=== PATIENT | male | born 2000 | race Caucasian/White ===

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

== ENCOUNTER 2021-06-04 19:11 | Emergency (ER) | payer OTHER, SELFPAY ==
[2021-06-04 19:57] LABS: Basophils % 0.8 % (0-1.3); Lymphocytes % 31.3 % (15.3-44.8); MPV 8.3 fL (7.6-11.3); RBC Red Blood Cell Count 4.83 M/uL (4.33-5.43)
[2021-06-04 20:08] LABS: ALT/SGPT 25 U/L (12-78); AST/SGOT 13 U/L (15-37); Albumin 4.2 g/dL (3.4-5.0); Alkaline Phosphatase 59 U/L (45-117); BUN Blood Urea Nitrogen 24 mg/dL (7-18); Bicarbonate 29 mmol/L (21-32); Bilirubin Direct 0.1 mg/dL (0-0.2); Bilirubin Total 0.4 mg/dL (0.2-1.0); Glucose Level 111 mg/dL (74-106); Potassium 3.9 mmol/L (3.5-5.1); Sodium Level 143 mmol/L (136-145)
[2021-06-04] MEDS ORDERED: NA CHLORIDE 0.9% 1,000 ML ONE (21:09)
[2021-06-04] MEDS ORDERED: LORazepam 2 MG/ML VIAL ONE (21:09)
--- NOTE | 2021-06-05 02:21 | EDPHYS ---
Physician Documentation [facility] Name: Nghia Estrada Age: 20 yrs Sex: Male : 2000 Arrival Date: 06/04/2021 Time: 19:20 Bed 23 Private MD: ED Physician Dane Montanez HPI: 06/04 22:40 This 20 yrs old Male presents to ER via EMS with complaints of Anxiety and rn paranoia. 22:40 The patient presents with agitation, Paranoia. Onset: The symptoms/episode rn began/occurred at an unknown time. Possible causes: drug use, amphetamines. Associated signs and symptoms: Pertinent positives: palpitations, Pertinent negatives: abdominal pain, chest pain, confusion, headache, seizure. Current symptoms: In the emergency department the patient's symptoms have improved. The patient has experienced similar episodes in the past. The patient has not recently seen a physician. Patient brought in by EMS for anxiety and palpitations with paranoia. States neighbors took meth and he feels like he inhales byproduct fumes. Patient states that he feels like his neighbors are trying to poison him. Admits to swallowing crystal meth approximately 20 minutes prior to arrival. 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 Family has family history of psychiatric issues, but patient without any clear diagnosis and does not take any psychiatric medication. Patient denies any suicidal or homicidal thoughts or plans.. Historical: - Allergies: 19:10 No Known Allergies; cc4 - PMHx: 19:10 Bipolar disorder; cc4 - Immunization history:: Adult Immunizations up to date. - Social history:: Smoking status: Patient reports the use of cigarette tobacco products, Patient uses "Crystal meth"; denies IV use; states, "I smoke and swallow it"; reports intermittent use of marijuana; reports h/o bi-polar disorder.. - Family history:: not pertinent. - Hospitalizations: : No recent hospitalization is reported. ROS: 22:40 Constitutional: Negative for fever, chills, and weight loss, Eyes: Negative for injury, rn pain, redness, and discharge, Neck: Negative for injury, pain, and swelling, Cardiovascular: Negative for chest pain, and edema, Respiratory: Negative for cough, wheezing, and pleuritic chest pain, Abdomen/GI: Negative for abdominal pain, nausea, vomiting, diarrhea, and constipation, Back: Negative for injury and pain, MS/Extremity: Negative for injury and deformity, Skin: Negative for injury, rash, and discoloration, Neuro: Negative for headache, weakness, numbness, tingling, and seizure. Exam: 22:40 Constitutional: This is a well developed, well nourished patient who is awake, alert, rn and in no acute distress. Head/Face: Normocephalic, atraumatic. Eyes: Pupils equal round and reactive to light, extra-ocular motions intact. Lids and lashes normal. Conjunctiva and sclera are non-icteric and not injected. Cornea within normal limits. Periorbital areas with no swelling, redness, or edema. No nystagmus ENT: Dry mucous membranes Cardiovascular: Regular rate and rhythm. No pulse deficits. Respiratory: No increased work of breathing, no retractions or nasal flaring. Abdomen/GI: Soft, non-tender Skin: Warm, dry MS/ Extremity: Pulses equal, no cyanosis. Neuro: Awake and alert, GCS 15 Vital Signs: 19:10 BP 159 / 81; Pulse 112; Resp 17; Temp 98.0; Pulse Ox 98% on R/A; Weight 77.11 kg; cc4 Height 5 ft. 7 in. (170.18 cm); 19:10 BP 159 / 81; Pulse 112; Resp 17; Temp 98.0; Pulse Ox 98% ; cc4 20:00 BP 135 / 86; Pulse 109; Resp 20; Pulse Ox 100% on R/A; cc4 21:00 BP 133 / 74; Pulse 93; Resp 16; Pulse Ox 100% on R/A; cc4 22:00 BP 130 / 70; Pulse 94; Resp 16; Pulse Ox 98% on R/A; cc4 23:00 BP 127 / 70; Pulse 68; Resp 16; Pulse Ox 100% on R/A; cc4 06/05 00:00 BP 125 / 63; Pulse 70; Resp 16; Temp 97.7(O); Pulse Ox 100% on R/A; cc4 01:00 BP 130 / 78; Pulse 67; Resp 16; Pulse Ox 100% on R/A; cc4 02:00 BP 122 / 61; Pulse 60; Resp 16; Pulse Ox 100% on R/A; cc4 02:45 BP 131 / 67; Pulse 61; Resp 16; Temp 97.8; Pulse Ox 100% on R/A; cc4 06/04 19:10 Body Mass Index 26.63 (77.11 kg, 170.18 cm) cc4 MDM: 06/04 19:45 Patient medically screened. rn 06/05 01:22 Differential Diagnosis: electrolyte abnormality, overdose, volume depletion, rn Methamphetamine effects.. Data reviewed: vital signs, nurses notes, lab test result(s), EKG, and as a result, I will discharge patient. Data interpreted: monitoring tech: rate is 70 beats/min, rhythm is normal sinus rhythm, regular, with no ectopy, Interpretation: normal rate, normal rhythm, Pulse oximetry: on room air is 100 %. Interpretation: normal. 01:42 Counseling: I had a detailed discussion with the patient and/or guardian regarding: the rn historical points, exam findings, and any diagnostic results supporting the discharge/admit diagnosis, lab results. Response to treatment: the patient's symptoms have markedly improved after treatment. ED course: We are in the middle of transferring patient to psychiatric facility or attempting to do so, 1 facility requested patient be changed to involuntary and get a assisted order if we want to transfer. Patient is awake and declines transfer, does not want to be transferred to psychiatric facility. Still denies suicidal or homicidal ideations or self-harm so cannot at this time justify emergency assisted order. Patient also constantly under the influence of methamphetamines and difficult to tell how much of his paranoia is drug-induced. At this discussion with his father and patient needs to quit drug use. Have no choice but to send patient home given he is not at this time endorsing thoughts of self-harm or harming anybody else.. 06/04 19:30 Order name: Acetaminophen em 06/04 19:30 Order name: Basic Metabolic Panel em 06/04 19:30 Order name: CBC with Diff em 06/04 19:30 Order name: ETOH Level em 06/04 19:30 Order name: Hepatic Function em 06/04 19:30 Order name: PT-INR em 06/04 19:30 Order name: Ptt, Activated; Complete Time: 22:39 em 06/04 19:30 Order name: Salicylate; Complete Time: 22:39 em 06/04 19:30 Order name: Urine Drug Screen em 06/04 19:30 Order name: Acetaminophen Level; Complete Time: 22:39 EDMS 06/04 19:30 Order name: Basic Metabolic Panel; Complete Time: 22:39 EDMS 06/04 19:30 Order name: CBC with Automated Diff; Complete Time: 22:39 EDMS 06/04 19:30 Order name: Alcohol Serum/Plasma; Complete Time: 22:39 EDMS 06/04 19:30 Order name: Liver (Hepatic) Function; Complete Time: 22:39 EDMS 06/04 19:30 Order name: EKG; Complete Time: 19:31 em 06/04 19:30 Order name: EKG - Nurse/Tech; Complete Time: 19:35 em 06/04 19:30 Order name: IV Saline Lock; Complete Time: 19:35 06/04 19:30 Order name: Labs collected and sent; Complete Time: 19:35 06/04 19:30 Order name: Suicide Screening ([place]); Complete Time: 20:53 06/04 19:30 Order name: Urine Dipstick-Ancillary (obtain specimen) 06/04 19:30 Order name: Protime (+INR); Complete Time: 22:39 EDSD 06/05 02:21 Order name: SARS-COV-2 RT PCR EDSD 06/05 02:26 Order name: Urine Dipstick-Ancillary EDMS Administered Medications: 02:57 Discontinued: NS 0.9% 1000 ml IV at 1000 ml once cc4 06/04 20:45 Drug: Ativan (LORazepam) 1 mg Route: IVP; Site: right antecubital; 4 06/05 02:45 Follow up: Response: No adverse reaction; Anxiety decreased cc4 06/04 20:45 Drug: NS 0.9% 1000 ml Route: IV; Rate: 1000 ml; Site: right antecubital; 4 06/05 02:45 Follow up: IV Intake: 1000ml cc4 Disposition Summary: 06/05/21 01:45 Discharge Ordered Location: Home rn Problem: an ongoing problem rn Symptoms: have improved rn Condition: Stable rn Diagnosis - Adverse effect of amphetamines rn - Paranoia rn Followup: rn - With: Private Physician - When: As needed - Reason: Recheck today's complaints, Re-evaluation by your physician Discharge Instructions: - Methamphetamines Use Disorder rn - Discharge Summary Sheet tt3 Forms: - Medication Reconciliation Form tt3 - Thank You Letter rn - Antibiotic metal furniture assembler - Prescription Opioid Use rn Signatures: Dispatcher [employer] Shakir Szymanski, RN Dane Woods MD MD rn Cooper, Christie, RN RN cc4 Corrections: (The following items were deleted from the chart) 06/04 21:20 19:10 PMHx: Diabetes - NIDDM; cc4 cc4 06/05 02:21 00:35 CORONAVIRUS+MR.LAB.BRZ ordered. EDSD EDSD
--- NOTE | 2021-06-05 02:21 | ER ---
Nurse's Notes [facility] Name: Nghia Estrada Age: 20 yrs Sex: Male : 2000 Arrival Date: 06/04/2021 Time: 19:20 Bed 23 Private MD: Diagnosis: Adverse effect of amphetamines;Paranoia Presentation: 06/04 19:10 Chief complaint: EMS states: "He thinks he was poisoned". Initial Sepsis Screen: Does cc4 the patient meet any 2 criteria? HR > 90 bpm. No. Patient's initial sepsis screen is negative. Risk Assessment: Do you want to hurt yourself or someone else? Patient reports no desire to harm self or others. Other: States, "They are going to kill me"; "The people I buy my meth. 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 Note Diaphoretic; Tachycardic; CM applied \\T\\ monitoring sinus tachycardia with no ventricular ectopy; reports h/o bi-polar disorder; reports on no home medications. Onset of symptoms was June 04, 2021 at 18:45. 19:10 Method Of Arrival: EMS: [facility] cc4 19:10 Acuity: RUBIO 3 cc4 19:10 Coronavirus screen: Vaccine status: Patient reports being unvaccinated. Client denies cc4 travel out of the [place] in the last 14 days. At this time, the client does not indicate any symptoms associated with coronavirus-19. Ebola Screen: Patient negative for fever greater than or equal to 101.5 degrees Fahrenheit, and additional compatible Ebola Virus Disease symptoms Patient denies exposure to infectious person. Patient denies travel to an Ebola-affected area in the 21 days before illness onset. Initial Sepsis Screen: Does the patient have a suspected source of infection? No. Patient's initial sepsis screen is negative. 19:20 Note Denies wanting to harm self or others; [place] Suicide Rating Scale completed. 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 Behavior is agitated. Pain: Denies pain. Historical: - Allergies: 19:10 No Known Allergies; cc4 - PMHx: 19:10 Bipolar disorder; cc4 - Immunization history:: Adult Immunizations up to date. - Social history:: Smoking status: Patient reports the use of cigarette tobacco products, Patient uses "Crystal meth"; denies IV use; states, "I smoke and swallow it"; reports intermittent use of marijuana; reports h/o bi-polar disorder.. - Family history:: not pertinent. - Hospitalizations: : No recent hospitalization is reported. Screenin:10 Abuse screen: Denies threats or abuse. Nutritional screening: No deficits noted. cc4 Tuberculosis screening: No symptoms or risk factors identified. Fall Risk None identified. Assessment: 19:10 General: Appears distressed, Behavior is agitated. Pain: Denies pain. Neuro: Level of cc4 Consciousness is awake, alert, obeys commands, Oriented to person, place, situation. Cardiovascular: Capillary refill < 3 seconds Rhythm is sinus tachycardia no ectopy noted. 19:10 Respiratory: No deficits noted. Airway is patent Breath sounds are clear bilaterally. cc4 GI: No deficits noted. Abdomen is flat, non-distended, Bowel sounds present X 4 quads. : No signs and/or symptoms were reported regarding the genitourinary system. EENT: No signs and/or symptoms were reported regarding the EENT system. Derm: Skin is intact. Musculoskeletal: No deficits noted. No signs and/or symptoms reported regarding the musculoskeletal system. Capillary refill < 3 seconds. 20:15 Reassessment: No changes from previously documented assessment. father in \\T\\ bedside cc4 with increased agitation noted. 20:45 Reassessment: IV NS hung to #20 g saline lock right AC \\T\\ infusing \\T\\ bolus rate with no cc 4 difficulty; ativan 1 mg given slow IVP; SR's X 2 up. 21:00 Reassessment: Patient appears in no apparent distress at this time. Dozing cc4 intermittently; HR decreasing to 93. 22:00 Reassessment: Patient appears in no apparent distress at this time. Sleeping; VSS; IV cc4 NS infusion complete. 23:00 Reassessment: Patient appears in no apparent distress at this time. Sleeping; arouses cc4 to verbal stimuli; instructed on need to urinate with urinal placed in hands; not following commands; Dr. Montanez notified \\T\\ reports"That's okay". 06/05 00:00 Reassessment: Patient appears in no apparent distress at this time. Continues to sleep; cc4 arouses easily; not following commands; NSR with no ectopy; HR 60's-70's; BP stable; O2 sat 100% RA. Vital Signs: 06/04 19:10 BP 159 / 81; Pulse 112; Resp 17; Temp 98.0; Pulse Ox 98% on R/A; Weight 77.11 kg; cc4 Height 5 ft. 7 in. (170.18 cm); 19:10 BP 159 / 81; Pulse 112; Resp 17; Temp 98.0; Pulse Ox 98% ; cc4 20:00 BP 135 / 86; Pulse 109; Resp 20; Pulse Ox 100% on R/A; cc4 21:00 BP 133 / 74; Pulse 93; Resp 16; Pulse Ox 100% on R/A; cc4 22:00 BP 130 / 70; Pulse 94; Resp 16; Pulse Ox 98% on R/A; cc4 23:00 BP 127 / 70; Pulse 68; Resp 16; Pulse Ox 100% on R/A; cc4 06/05 00:00 BP 125 / 63; Pulse 70; Resp 16; Temp 97.7(O); Pulse Ox 100% on R/A; cc4 01:00 BP 130 / 78; Pulse 67; Resp 16; Pulse Ox 100% on R/A; cc4 02:00 BP 122 / 61; Pulse 60; Resp 16; Pulse Ox 100% on R/A; cc4 02:45 BP 131 / 67; Pulse 61; Resp 16; Temp 97.8; Pulse Ox 100% on R/A; cc4 06/04 19:10 Body Mass Index 26.63 (77.11 kg, 170.18 cm) cc4 ED Course: 06/04 19:10 No provider procedures requiring assistance completed. Inserted saline lock: 20 gauge cc4 in right antecubital area, using aseptic technique. 19:10 Bed in low position. Call light in reach. Side rails up X2. cc4 19:20 Patient arrived in ED. wm 19:31 Ngozi Barahona, APOLINAR is Primary Nurse. cc4 19:35 Alcohol Serum/Plasma Sent. cc4 19:35 Liver (Hepatic) Function Sent. cc4 19:35 Protime (+INR) Sent. cc4 19:35 Basic Metabolic Panel Sent. cc4 19:35 CBC with Automated Diff Sent. cc4 19:35 Acetaminophen Level Sent. cc4 19:35 Acetaminophen Sent. cc4 19:35 Basic Metabolic Panel Sent. cc4 19:35 CBC with Diff Sent. cc4 19:35 ETOH Level Sent. cc4 19:35 Hepatic Function Sent. cc4 19:35 PT-INR Sent. cc4 19:36 Ptt, Activated Sent. cc4 19:36 Salicylate Sent. cc4 19:45 Dane Montanez MD is Attending Physician. rn 19:52 Triage completed. cc4 21:16 Arm band placed on. cc4 06/05 02:45 IV discontinued, intact, bleeding controlled, No redness/swelling at site. Pressure cc4 dressing applied. Administered Medications: 02:57 Discontinued: NS 0.9% 1000 ml IV at 1000 ml once cc4 06/04 20:45 Drug: Ativan (LORazepam) 1 mg Route: IVP; Site: right antecubital; cc4 06/05 02:45 Follow up: Response: No adverse reaction; Anxiety decreased cc4 06/04 20:45 Drug: NS 0.9% 1000 ml Route: IV; Rate: 1000 ml; Site: right antecubital; cc4 06/05 02:45 Follow up: IV Intake: 1000ml cc4 Intake: 02:45 IV: 1000ml; Total: 1000ml. cc4 Outcome: 06/04 19:10 Condition: stable cc4 06/05 01:45 Discharge ordered by . rn 02:45 Discharged to home via wheelchair. cc4 02:45 Condition: improved 02:45 Discharge instructions given to patient, father Instructed on discharge instructions, follow up and referral plans. Demonstrated understanding of instructions, follow-up care. 03:14 Patient left the ED. cc4 Signatures: Dane Montanez MD MD rn Marsh, Wendy wm Cooper, Christie, RN RN cc4 Corrections: (The following items were deleted from the chart) 06/04 21:20 19:10 PMHx: Diabetes - NIDDM; cc4 cc4 06/05 00:06 00:00 BP 127 / 70; Pulse 70bpm; Resp 16bpm; Pulse Ox 100% RA; cc4 cc4 02:21 01:51 CORONAVIRUS+MR.LAB.BRZ drawn and sent. cc4 EDMS
[2021-06-05 02:27] LABS: Urine Blood Negative (Negative); Urine Glucose Negative (Negative); Urine Protein Negative (Negative); Urine Specific Gravity >=1.030 (1.005-1.030); Urine pH 5.5 (5.0-7.0)
[2021-06-05 02:32] LABS: Barbiturates NEGATIVE (NEGATIVE); Benzodiazepines NEGATIVE (NEGATIVE); Cocaine NEGATIVE (NEGATIVE); METHAMPHETAM POSITIVE (NEGATIVE); Methadone NEGATIVE (NEGATIVE); Opiates NEGATIVE (NEGATIVE); Phencyclidine NEGATIVE (NEGATIVE); THC Cannibis POSITIVE (NEGATIVE)
[2021-06-05 03:23] VITALS: O2SAT 100
[2021-06-05 03:29] VITALS: BP 131/67; TEMP 97.8
== END 2021-06-05 03:14 | disposition home or self-care (01) ==
LOC: ER 19:11
DX: F22 Delusional disorders (principal); T43.625A Adverse effect of amphetamines, initial encounter; F31.9 Bipolar disorder, unspecified; Z20.822 Contact with and (suspected) exposure to COVID-19
CPT/HCPCS: 93005; 85025; 80048; 36415; 80320; 80329 ×2; 85610; 80076; 85730; 81003; 80307; 96374; 99284; U0003; J7030

== ENCOUNTER 2022-04-29 23:46 | Emergency (ER) | payer OTHER ==
--- OUTSIDE RECORDS SUMMARY | 2022-04-29 23:49 | XMS REPORT | Continuity of Care Document ---
:2000 Author Organization [facility] [place] t Address [address] [place] [address] Care Team Providers Name Role Phone Peña Calabrese MD Attending Clinician PEÑA CALABRESE Attending Clinician Unavailable Problems Condition Condition Condition Status Onset Resolution Last Treating Co mments Source Name Details Category Date Date Treatment Clinician Date Superficia Superficia Disease Active U nivers l mixed l mixed 1-11 [place] inflammato inflammato Br anch ry acne ry acne vulgaris vulgaris AYLEEN AYLEEN Disease Active Univers (obstructi (obstructi 09-02 it y of ve sleep ve sleep 00:00: [place] apnea) apnea) 00 Medical Branch History of History of Disease Active U nivers depression depression 1-11 it y of 00:00: [place] 00 Medical Branch 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 1-05 ity of diabetes diabetes 00:00: [place] 00 Medical Branch Obesity, Obesity, Disease Active 2014-08 Unive rs morbid, morbid, 2-01 ity of BMI BMI 00:00: [place] 40.0-49.9 40.0-49.9 00 [facility] Branch Abnormal Abnormal Disease Active 2014-08 Unive rs weight weight 2-01 ity of gain gain 00:00: [place] 00 Medical Branch Type 2 Type 2 Disease Active 2014-08 Univers diabetes diabetes 2-01 ity of mellitus mellitus 00:00: [place] without without 00 Medical complicati complicati Br anch on on Acanthosis Acanthosis Disease Active 2014-08 U nivers nigricans nigricans 2- ity of 00:00: [place] 00 Medical Branch Elevated Elevated Disease Active 2014-08 Unive rs systolic systolic 2-01 ity of blood blood 00:00: [place] pressure pressure 00 Medica l Branch Allergies, Adverse Reactions, Alerts Allergy Allergy Status Severity Reaction(s) Onset Inactive Treating Comm ents Source Name Type Date Date Clinician No Known Drug Active [facility] NO KNOWN Drug Active [facility] ALLERG Class ity of S [facility] Social History Social Habit Start Date Stop Date Quantity Comments Source Sex Assigned At [facility] Medical Branch Alcohol intake 2017-07-28 2017-07-28 [facility] 00:00:00 00:00:00 Medical Branch Smoking Status Start Date Stop Date Source Never smoker [facility] Medications Ordered Filled Start Stop Current Ordering Indication Dosage Frequency Signature Comments Components Source Medication Medication Date Date Medication? Clinician (SIG) Name Name Lamotrigine 2016-08 Yes 50mg Take 50 mg Univers (LAMICTAL 2-07 by mouth ity of ODT) 50 mg 13:15: daily. [place] tablet 05 Medical Branch blood sugar Yes Checking 6 Univers diagnostic 6-05 times ity of (FREESTYLE 00:00: daily [place] LITE 00 Medical STRIPS) Branch strip metformin Yes [id number] 750mg Take 1 Univers ER 750 mg 6-05 tablet by ity o f 24 hr 00:00: mouth [place] tablet 00 daily. Medical With Branch dinner Insulin Yes [id number] Taking 1 U nivers [place], 9-06 injection ity of Disposable, 00:00: daily [place] (SURE-FINE Medical PEN Branch NEEDLES) 31 gauge x 5/16" Ndle loratadine- 2014-08 Yes [id number] 1{tbl} Take 1 Tab Univers pseudoephed 2-01 by mouth ity of rine 00:00: daily. [place] (CLARITIN-D 00 Medical 24 HOUR) Branch 10-240 mg per 24 hr tablet Vital Signs Vital Name Observation Time Observation Value Comments Source Weight Dosing 2021-09-09 09:51:09 72.60 kg Height/Length Measured 2021-09-09 09:51:09 172.7 cm Height/Length Measured 2021-09-09 09:42:27 172.7 cm Weight Dosing 2021-09-09 09:42:27 72.60 kg Height/Length Measured 2021-09-09 09:39:01 172.7 cm Height/Length Measured 2021-09-09 09:38:02 172.7 cm Height/Length Measured 2021-09-09 09:37:56 172.7 cm Height/Length Measured 2021-09-09 09:37:53 172.7 cm Height/Length Measured 2021-09-09 09:37:51 172.7 cm Height/Length Measured 2021-09-09 09:37:49 172.7 cm Height/Length Measured 2021-09-09 09:37:48 172.7 cm Height/Length Measured 2019-11-08 22:41:31 Procedures This patient has no known procedures. Encounters Start End Encounter Admission Attending Care Care Encounter Source Date/Time Date/Time Type Type Clinicians Facility Department ID 2019-11-09 2019[facility]11-09 [facility] [id number] Univers 13:19:00 23:59:00 Encounter Peña ABRAHAM [id number] ity MEDICAL [id number] Formerly [facility] [id number] [place] [id number] Branch 2019-11-09 2019-11-09 Outpatient [facility] [id number] Univers 00:00:00 00:00:00 PEÑA squires o f [facility] 2019-11-08 2019-11-08 Emergency [facility] [id number] [address] 22:22:00 22:22:00 [facility] 2019-11-08 2019-11-08 Emergency [facility] [id number] 22:22:00 22:22:00 [id number] [facility] Results Test Description Test Time Test Comments Results Result Comments Source Hemoglobin A1c 2019-11-14 06:51:27 Test Item Value Reference Range Interpretation Comme nts Hemoglobin A1c (test code = 5.0 % 4.8-5.9 Non Diabetic 4.8-5.9%Diabetic <7.0% Hemoglobin A1c) Thyroid Stimulating [id number] 04:42:51 Test Item Value Reference Range Interpretation Comments TSH (test code = TSH) 1.030 mIU/mL 0.270-4.200 Lipid [id number] 04:37:04 Test Item Value Reference Range Interpretation Comments Cholesterol Total 126 mg/dL 0-200 RISK OF HE ART (test code = DISEASEPublishe d by Cholesterol Total) [employer] Toña lyte Optimal Borderl ine Increased RiskC HOL <200 200-239 >240TRI G <150 150-199 >200HDL Male >60 <40HDL Fema le >60 <50LDL <100 130 -159 >160LDL Near op timal is 100-129 Triglycerides (test 47 mg/dL 9-200 code = Triglycerides) HDL (test code = HDL) 43 mg/dL 40-60 LDL (test code = LDL) 74 mg/dL 0-130 The eq uation being used in this calcula tion is LDL = (Chol - H DL) - (Trig / 5) VLDL (test code = 9 mg/dL 5-40 The equati on being used VLDL) in this calcula tion is VLDL = Trig / 5 Chol/HDL (test code = 2.9 ratio 0.0-5.0 Chol/HDL) LDL/HDL Ratio (test 2 N The equa tion being used code = LDL/HDL Ratio) in thi s calculation is LDL/HDL Ratio=L DL Calc/HDL Chol RPR [id number] 14:25:53 Test Item Value Reference Range Interpretation Comments RPR Qual (test code = RPR Qual) Non-Reactive Non-Reactive Reactive Control (test code = Reactive Reactive Control) Weak Reactive Control (test Weak Reactive code = Weak Reactive Control) Non-Reactive Control (test code Non-Reactive = Non-Reactive Control) Lot # (test code = Lot #) [id number] Expiration Dt (test code = 08-22-20 N Expiration Dt) Urinalysis [id number] 06:13:44 Test Item Value Reference Range Interpretation Comments UA WBC (test code = UA WBC) 6-10 0-5 A UA RBC (test code = UA RBC) 0-5 0-5 UA Bacteria (test code = UA Moderate A Bacteria) UA Squam Epithelial (test code = UA 6-10 A Squam Epithelial) UA Mucous (test code = UA Mucous) Moderate A Urine Drug [id number] 05:55:29 Test Item Value Reference Range Interpretation Comments Amphetamine Screen Ur Negative Negative (test code = Amphetamine Screen Ur) Barbiturate Screen Ur Negative Negative (test code = Barbiturate Screen Ur) Benzodiazepines Ur (test Negative Negative code = Benzodiazepines Ur) Cocaine Screen Ur (test Negative Negative code = Cocaine Screen Ur) U Methadone Scr (test Negative Negative code = U Methadone Scr) Opiate Screen Ur (test Negative Negative code = Opiate Screen Ur) U PCP Scrn (test code = Negative Negative U PCP Scrn) Cannabinoid Screen Ur POSITIVE Negative A (test code = Cannabinoid Screen Ur) U TCA (test code = U Negative Negative The res ults of all TCA) drug screen anya ts are only preliminar y. Clinical consideration a nd professional ju dgment should be appli ed to any drug of abu se test result, particularly wh en preliminary pos itive results are obt ained. Please order a separate confir matory test if desired . Urinalysis with Microscopic if [id number] 05:44:35 Test Item Value Reference Range Interpretation Comments UA Color (test code = UA Color) YELLO Yellow UA Appear (test code = UA Appear) CLEAR Clear UA pH (test code = UA pH) 5.5 N UA Spec Grav (test code = UA Spec 1.030 1.001-1.035 Grav) UA Glucose (test code = UA Glucose) NEG Negative UA Ketones (test code = UA Ketones) NEG Negative UA Blood (test code = UA Blood) NEG Negative UA Protein (test code = UA Protein) 25 mg/dL Negative A UA Bili (test code = UA Bili) 1 mg/dL Negative A UA Urobilinogen (test code = UA .2 mg/dL >0.2 Urobilinogen) UA Nitrite (test code = UA Nitrite) NEG Negative UA Leuk Est (test code = UA Leuk NEG Negative Est) UA Micro Ind? (test code = UA Micro Indicated Not Indicated A Ind?) Comprehensive Metabolic [id number] 01:23:11 Test Item Value Reference Range Interpretation Comments Sodium Level (test code = Sodium 142.0 mmol/L 135.0-145.0 Level) Potassium Level (test code = 3.5 mmol/L 3.5-5.1 Potassium Level) Chloride Level (test code = 104 mmol/L 98-105 Chloride Level) CO2 (test code = CO2) 23 mmol/L 22-29 Anion Gap (test code = Anion 15 mmol/L 7-16 Gap) BUN (test code = BUN) 15.90 mg/dL 6.00-20.00 Creatinine Level (test code = 1.00 mg/dL 0.70-1.20 Creatinine Level) BUN/Creat Ratio (test code = 16 N BUN/Creat Ratio) Glucose Level (test code = 78 mg/dL 70-115 Glucose Level) Calcium Level (test code = 9.0 mg/dL 8.3-10.5 Calcium Level) Alk Phos (test code = Alk Phos) 43 U/L 40-129 Bilirubin Total (test code = 0.5 mg/dL 0.1-0.9 Bilirubin Total) Albumin Level (test code = 4.3 g/dL 3.5-5.2 Albumin Level) Protein Total (test code = 6.0 g/dL 6.4-8.3 L Protein Total) ALT (test code = ALT) 10 U/L 1-41 AST (test code = AST) 14 U/L 1-40 Globulin (test code = Globulin) 1.7 g/dL 2.9-3.1 L A/G Ratio (test code = A/G 2.5 ratio N Ratio) Comprehensive Metabolic [id number] 01:23:11 Test Item Value Reference Range Interpretation Comments Sodium Level (test 142.0 mmol/L 135.0-145.0 code = Sodium Level) Potassium Level 3.5 mmol/L 3.5-5.1 (test code = Potassium Level) Chloride Level (test 104 mmol/L 98-105 code = Chloride Level) CO2 (test code = 23 mmol/L 22-29 CO2) Anion Gap (test code 15 mmol/L 7-16 = Anion Gap) BUN (test code = 15.90 mg/dL 6.00-20.00 BUN) Creatinine Level 1.00 mg/dL 0.70-1.20 (test code = Creatinine Level) BUN/Creat Ratio 16 N (test code = BUN/Creat Ratio) Glucose Level (test 78 mg/dL 70-115 code = Glucose Level) Calcium Level (test 9.0 mg/dL 8.3-10.5 code = Calcium Level) Alk Phos (test code 43 U/L 40-129 = Alk Phos) Bilirubin Total 0.5 mg/dL 0.1-0.9 (test code = Bilirubin Total) Albumin Level (test 4.3 g/dL 3.5-5.2 code = Albumin Level) Protein Total (test 6.0 g/dL 6.4-8.3 L code = Protein Total) ALT (test code = 10 U/L 1-41 ALT) AST (test code = 14 U/L 1-40 AST) Globulin (test code 1.7 g/dL 2.9-3.1 L = Globulin) A/G Ratio (test code 2.5 ratio N = A/G Ratio) eGFR AA (test code = >60 N eGFR (e stimated eGFR AA) mL/min/1.73 m2 Glomerular Filtration Rate ) is an estimated va lue, calculated from the patient's serum creatinine usin g the MDRD equation. It is NOT the patient 's actual GFR. The eGFR provides a more clinically usef ul measure of kidn ey disease than se rum creatinine alone.This calculation pavan es sex and race in to account, if the information is provided. If th e race is not provided, and t he patient is -Paula n, multiply by 1.2 12. If sex is not provided, and t he patient is fema le, multiply by 0.7 42. Results for pat ients <18 years of ag e have not been validated by th e MDRD study and should be interpreted wit h caution. eGFR R esult Interpretation: eGFR > or = 60 is in the Normal RangeeGF R < 60 may mean kid sola diseaseeGFR < 1 5 may mean kidney failure Rang es recommended by the National Kidney Foundation, http://nkdep.ni h.gov Alcohol [id number] 01:23:11 Test Item Value Reference Range Interpretation Comments Ethanol Level (test <0.00 g/dL 0.00-0.01 Intoxica jessica 0.080 g/dL code = Ethanol or more Level) Ethanol Inst (test <0 N code = Ethanol Inst) Comprehensive Metabolic [id number] 01:23:11 Test Item Value Reference Range Interpretation Comments Sodium Level (test 142.0 mmol/L 135.0-145.0 code = Sodium Level) Potassium Level 3.5 mmol/L 3.5-5.1 (test code = Potassium Level) Chloride Level (test 104 mmol/L 98-105 code = Chloride Level) CO2 (test code = 23 mmol/L 22-29 CO2) Anion Gap (test code 15 mmol/L 7-16 = Anion Gap) BUN (test code = 15.90 mg/dL 6.00-20.00 BUN) Creatinine Level 1.00 mg/dL 0.70-1.20 (test code = Creatinine Level) BUN/Creat Ratio 16 N (test code = BUN/Creat Ratio) Glucose Level (test 78 mg/dL 70-115 code = Glucose Level) Calcium Level (test 9.0 mg/dL 8.3-10.5 code = Calcium Level) Alk Phos (test code 43 U/L 40-129 = Alk Phos) Bilirubin Total 0.5 mg/dL 0.1-0.9 (test code = Bilirubin Total) Albumin Level (test 4.3 g/dL 3.5-5.2 code = Albumin Level) Protein Total (test 6.0 g/dL 6.4-8.3 L code = Protein Total) ALT (test code = 10 U/L 1-41 ALT) AST (test code = 14 U/L 1-40 AST) Globulin (test code 1.7 g/dL 2.9-3.1 L = Globulin) A/G Ratio (test code 2.5 ratio N = A/G Ratio) eGFR AA (test code = >60 N eGFR (e stimated eGFR AA) mL/min/1.73 m2 Glomerular Filtration Rate ) is an estimated va lue, calculated from the patient's serum creatinine usin g the MDRD equation. It is NOT the patient 's actual GFR. The eGFR provides a more clinically usef ul measure of kidn ey disease than se rum creatinine alone.This calculation pavan es sex and race in to account, if the information is provided. If th e race is not provided, and t he patient is -Paula n, multiply by 1.2 12. If sex is not provided, and t he patient is fema le, multiply by 0.7 42. Results for pat ients <18 years of ag e have not been validated by th e MDRD study and should be interpreted wit h caution. eGFR R esult Interpretation: eGFR > or = 60 is in the Normal RangeeGF R < 60 may mean kid sola diseaseeGFR < 1 5 may mean kidney failure Rang es recommended by the National Kidney Foundation, http://nkdep.ni h.gov eGFR Non-AA (test >60.00 N eGFR (ken mated code = eGFR Non-AA) mL/min/1.73 m2 Glomer ular Filtration Rate ) is an estimated va lue, calculated from the patient's serum creatinine usin g the MDRD equation. It is NOT the patient 's actual GFR. The eGFR provides a more clinically usef ul measure of kidn ey disease than se rum creatinine alone.This calculation pavan es sex and race in to account, if the information is provided. If th e race is not provided, and t he patient is -Paula n, multiply by 1.2 12. If sex is not provided, and t he patient is fema le, multiply by 0.7 42. Results for pat ients <18 years of ag e have not been validated by th e MDRD study and should be interpreted wit h caution. eGFR R esult Interpretation: eGFR > or = 60 is in the Normal RangeeGF R < 60 may mean kid sola diseaseeGFR < 1 5 may mean kidney failure Rang es recommended by the National Kidney Foundation, http://nkdep.ni h.gov Complete Blood Count with [id number] 01:06:15 Test Item Value Reference Range Interpretation Comments WBC (test code = WBC) 8.1 x10 4.4-10.5 RBC (test code = RBC) 4.32 x10 4.10-5.70 Hgb (test code = Hgb) 13.1 g/dL 13.4-17.4 L Hct (test code = Hct) 39.5 % 38.7-52.0 MCV (test code = MCV) 91.40 fL 80.00-100.00 MCHC (test code = 33.20 g/dL 32.00-37.50 MCHC) MCH (test code = MCH) 30.3 pg 27.0-32.5 RDW CV (test code = 11.8 % 11.5-14.5 RDW CV) Platelets (test code = 252.0 x10 140.0-440.0 Platelets) MPV (test code = MPV) 10.1 fL N Slide Review (test Auto Auto Result cr eated by code = Slide Review) GL_SJM_ SLIDE_REV_AUTO nRBC (test code = 0 N nRBC) NRBC Abs (test code = 0.00 x10 N NRBC Abs) IPF (test code = IPF) 0 % N Automated [id number] 01:06:15 Test Item Value Reference Range Interpretation Comments Neutro Auto (test code = Neutro 56.2 % 36.0-70.0 Auto) Lymph Auto (test code = Lymph Auto) 34.2 % 12.0-44.0 Meade Auto (test code = Meade Auto) 8.6 % 0.0-11.0 Eos, Auto (test code = Eos, Auto) 0.2 % 0.0-7.0 Basophil Auto (test code = Basophil 0.6 % 0.0-2.0 Auto) Neutro Absolute (test code = Neutro 4.6 x10 1.6-7.4 Absolute) Lymph Absolute (test code = Lymph 2.78 x10 .50-4.60 Absolute) Meade Absolute (test code = Meade .70 x10 .00-1.20 Absolute) Eos Absolute (test code = Eos 0.02 x10 0.00-0.74 Absolute) Baso Absolute (test code = Baso 0.05 x10 0.00-0.21 Absolute) IG [id number] 01:06:15 Test Item Value Reference Range Interpretation Comments IG (test code = IG) 0.2 % 0.0-5.0 IG Abs (test code = IG Abs) 0 x10 N
[2022-04-30] MEDS ORDERED: NA CHLORIDE 0.9% 1,000 ML ONE (00:16)
[2022-04-30 00:42] LABS: Absolute Lymphocytes (CBC) 1.9 K/uL (0.7-4.9); Hematocrit 42.4 % (39.6-49.0); Lymphocytes % 25.7 % (15.3-44.8); MCV 87.4 fL (80-100); MPV 8.5 fL (7.6-11.3); RBC Red Blood Cell Count 4.85 M/uL (4.33-5.43)
[2022-04-30 01:55] LABS: Barbiturates NEGATIVE (NEGATIVE); Benzodiazepines POSITIVE (NEGATIVE); Cocaine NEGATIVE (NEGATIVE); METHAMPHETAM NEGATIVE (NEGATIVE); Methadone NEGATIVE (NEGATIVE); Opiates NEGATIVE (NEGATIVE); Phencyclidine NEGATIVE (NEGATIVE); THC Cannibis POSITIVE (NEGATIVE)
--- NOTE | 2022-04-30 01:59 | ER ---
Nurse's Notes [facility] Name: Nghia Estrada Age: 21 yrs Sex: Male : 2000 Arrival Date: 04/29/2022 Time: 23:46 Bed 6 Private MD: Diagnosis: Cannabis use, unspecified with intoxication, uncomplicated Presentation: 04/29 23:47 Chief complaint: EMS states: they were toned out for report of pt having an unusual bb reaction to marijuana that he smoked pt states "I feel more fucked up than usual". Coronavirus screen: At this time, the client does not indicate any symptoms associated with coronavirus-19. Ebola Screen: No symptoms or risks identified at this time. Initial Sepsis Screen: Does the patient meet any 2 criteria? No. Patient's initial sepsis screen is negative. Does the patient have a suspected source of infection? No. Patient's initial sepsis screen is negative. Risk Assessment: Do you want to hurt yourself or someone else? Patient reports no desire to harm self or others. Onset of symptoms was April 29, 2022. 23:47 Method Of Arrival: EMS: [facility] bb 23:47 Acuity: RUBIO 3 bb Historical: - Allergies: 23:49 No Known Allergies; bb - Home Meds: 23:49 None [Active]; bb - PMHx: 23:49 Bipolar disorder; Diabetes mellitus; bb - Immunization history:: Client reports having NOT received the Covid vaccine. - Social history:: Smoking status: Patient reports the use of cigarette tobacco products, Reported history of juuling and/or vaping. Patient uses alcohol, street drugs, marijuana. - Family history:: not pertinent. - Hospitalizations: : No recent hospitalization is reported. Screenin:50 Abuse screen: Denies threats or abuse. Nutritional screening: No deficits noted. bb Tuberculosis screening: No symptoms or risk factors identified. Fall Risk None identified. Assessment: 23:50 General: Appears in no apparent distress. Behavior is cooperative. Pain: Denies pain. bb Neuro: Level of Consciousness is awake, alert, obeys commands, Oriented to person, place, time, situation. Cardiovascular: Heart tones S1 S2 present Capillary refill < 3 seconds Patient's skin is warm and dry. Respiratory: Respiratory effort is even, unlabored, Respiratory pattern is regular, Breath sounds are clear bilaterally. GI: Abdomen is non-distended, Bowel sounds present X 4 quads. Abd is soft and non tender X 4 quads. Derm: Skin is pink, warm \\T\\ dry. Musculoskeletal: Circulation, motion, and sensation intact. 04/30 00:21 Reassessment: Patient is alert, oriented x 3, equal unlabored respirations, skin bb warm/dry/pink. 01:12 Reassessment: Patient is alert, oriented x 3, equal unlabored respirations, skin bb warm/dry/pink. pt ambulated with steady gait to the bathroom states he is feeling better now. IV site intact, patent with fluids infusing awaiting diagnostic results. Overdose: 02:15 [place] Suicide Severity Screening: "In the past month, have you wished you were kl or wished you could go to sleep and not wake up?" Patient responds "no." "In the past month, have you actually had any thoughts of killing yourself?" Patient responds "no." "In your lifetime, have you ever done anything, started to do anything, or prepared to do anything to end your life?" Patient responds "no.". 02:15 [place] Suicide Severity Screening: "In the past month, have you wished you were kl or wished you could go to sleep and not wake up?" Patient responds "no." "In the past month, have you actually had any thoughts of killing yourself?" Patient responds "no.". 02:15 [place] Suicide Severity Screening: "In the past month, have you wished you were kl or wished you could go to sleep and not wake up?" Patient responds "no." "In the past month, have you actually had any thoughts of killing yourself?" Patient responds "no.". Vital Signs: 04/29 23:47 BP 144 / 69; Pulse 81; Resp 16 S; Temp 98.8(O); Pulse Ox 98% on R/A; Weight 113.4 kg bb (R); Height 5 ft. 7 in. (170.18 cm) (R); Pain 0/10; 04/30 00:05 BP 120 / 66; Pulse 78; Resp 16; Pulse Ox 99% ; kl 01:15 BP 119 / 50; Pulse 61; Resp 18 S; Pulse Ox 98% on R/A; bb 02:13 BP 134 / 64; Pulse 67; Resp 18; Pulse Ox 98% ; Pain 0/10; kl 04/29 23:47 Body Mass Index 39.16 (113.40 kg, 170.18 cm) bb ED Course: 04/29 23:46 Patient arrived in ED. bb 23:47 Dane Montanez MD is Attending Physician. rn 23:49 Triage completed. bb 23:49 Arm band placed on Patient placed in an exam room, on a stretcher, on radiographer cardiac catheterization, bb on pulse oximetry. 23:50 Patient has correct armband on for positive identification. Bed in low position. Call bb light in reach. Side rails up X 1. monitoring analyst on. Pulse ox on. NIBP on. 04/30 00:04 Ivett Olson RN is Primary Nurse. bb 00:15 Initial lab(s) drawn, by me, sent to lab. Inserted saline lock: 20 gauge in right bb antecubital area, using aseptic technique. Blood collected. 02:14 No provider procedures requiring assistance completed. IV discontinued, intact, kl bleeding controlled, No redness/swelling at site. Pressure dressing applied. Administered Medications: 00:21 Drug: NS 0.9% 1000 ml Route: IV; Rate: 1000 ml; Site: right antecubital; bb 01:16 Follow up: IV Status: Completed infusion; IV Intake: 950ml bb Medication: 04/29 23:50 VIS not applicable for this client. bb Intake: 04/30 01:16 IV: 950ml; Total: 950ml. bb Outcome: 01:58 Discharge ordered by . rn 02:14 Discharged to home ambulatory, with family. kl 02:14 Condition: improved 02:14 Discharge instructions given to patient, Instructed on discharge instructions, follow up and referral plans. Demonstrated understanding of instructions, follow-up care. 02:16 Patient left the ED. Signatures: Fatimah Taylor RN RN kl [place]ard, Brenda, APOLINAR RN Dane Allison MD MD rn
--- NOTE | 2022-04-30 01:59 | EDPHYS ---
Physician Documentation [facility] Name: Nghia Estrada Age: 21 yrs Sex: Male : 2000 Arrival Date: 04/29/2022 Time: 23:46 Bed 6 Private MD: ED Physician Dane Montanez HPI: 04/30 00:08 This 21 yrs old Male presents to ER via EMS with complaints of Drug use. rn 00:08 Pt reports feeling "fucked up" after smoking marijuana, is concerned was laced with rn something, began to feel weird after smoking it, took 2 doses of narcan himself because felt like fentanyl might be mixed with marijuana. EMS reports stable vitals, no interventions by EMS. . Onset: The symptoms/episode began/occurred just prior to arrival. Severity of symptoms: At their worst the symptoms were moderate in the emergency department the symptoms have improved. The patient has not experienced similar symptoms in the past. The patient has not recently seen a physician. Historical: - Allergies: 04/29 23:49 No Known Allergies; bb - Home Meds: 23:49 None [Active]; bb - PMHx: 23:49 Bipolar disorder; Diabetes mellitus; bb - Immunization history:: Client reports having NOT received the Covid vaccine. - Social history:: Smoking status: Patient reports the use of cigarette tobacco products, Reported history of juuling and/or vaping. Patient uses alcohol, street drugs, marijuana. - Family history:: not pertinent. - Hospitalizations: : No recent hospitalization is reported. ROS: 04/30 00:08 Constitutional: Negative for fever, chills, and weight loss, Eyes: Negative for injury, rn pain, redness, and discharge, Neck: Negative for injury, pain, and swelling, Cardiovascular: Negative for chest pain, palpitations, and edema, Respiratory: Negative for shortness of breath, cough, wheezing, and pleuritic chest pain, Abdomen/GI: Negative for abdominal pain, nausea, vomiting, diarrhea, and constipation, Back: Negative for injury and pain, MS/Extremity: Negative for injury and deformity, Skin: Negative for injury, rash, and discoloration, Neuro: Negative for headache, weakness, numbness, tingling, and seizure. Exam: 00:08 Constitutional: This is a well developed, well nourished patient who is awake, alert, rn and in no acute distress. Laughing and appears high Head/Face: Normocephalic, atraumatic. Eyes: Pupils equal round and reactive to light, extra-ocular motions intact. Lids and lashes normal. Conjunctiva and sclera are non-icteric and not injected. Cornea within normal limits. Periorbital areas with no swelling, redness, or edema. ENT: dry MM Cardiovascular: Regular rate and rhythm. No pulse deficits. Respiratory: No increased work of breathing, no retractions or nasal flaring. Abdomen/GI: Soft, non-tender Skin: Warm, dry, no cyanosis MS/ Extremity: Pulses equal, no cyanosis. Neuro: Awake and alert, GCS 15, oriented to person, place, time, and situation. Cranial nerves II-XII grossly intact. Motor strength 5/5 in all extremities. Sensory grossly intact. Cerebellar exam normal. 02:14 ECG was reviewed by the Attending Physician. rn Vital Signs: 04/29 23:47 BP 144 / 69; Pulse 81; Resp 16 S; Temp 98.8(O); Pulse Ox 98% on R/A; Weight 113.4 kg bb (R); Height 5 ft. 7 in. (170.18 cm) (R); Pain 0/10; 04/30 00:05 BP 120 / 66; Pulse 78; Resp 16; Pulse Ox 99% ; kl 01:15 BP 119 / 50; Pulse 61; Resp 18 S; Pulse Ox 98% on R/A; bb 02:13 BP 134 / 64; Pulse 67; Resp 18; Pulse Ox 98% ; Pain 0/10; kl 04/29 23:47 Body Mass Index 39.16 (113.40 kg, 170.18 cm) bb MDM: 04/29 23:47 Patient medically screened. rn 04/30 00:52 Differential Diagnosis adverse effect of drugs/marijuana. Data reviewed: vital signs, rn nurses notes. ED course: Pt feels much better, sitting upright and using phone, friend in room.. 01:57 Counseling: I had a detailed discussion with the patient and/or guardian regarding: the rn historical points, exam findings, and any diagnostic results supporting the discharge/admit diagnosis, lab results, the need for outpatient follow up, to return to the emergency department if symptoms worsen or persist or if there are any questions or concerns that arise at home. Response to treatment: the patient's symptoms have markedly improved after treatment, the patient's condition has returned to base line, the patient is now symptom free, and as a result, I will discharge patient. Special discussion: I discussed with the patient/guardian in detail that at this point there is no indication for admission to the hospital. It is understood, however, that if the symptoms persist or worsen the patient needs to return immediately for re-evaluation. 04/29 23:47 Order name: CBC with Diff; Complete Time: :57 rn 04/29 23:47 Order name: Basic Metabolic Panel; Complete Time: : rn 04/29 23:47 Order name: EKG; Complete Time: 23:48 rn 04/29 23:47 Order name: Urine Drug Screen; Complete Time: rn 04/30 00:02 Order name: Glucose, Ancillary Testing; Complete Time: 00:38 EDMS 04/29 23:47 Order name: IV Start; Complete Time: : rn 04/29 23:47 Order name: EKG - Nurse/Tech; Complete Time: : rn 04/29 23:47 Order name: Cardiac monitoring; Complete Time: 00:04 rn 04/29 23:47 Order name: O2 Sat Monitoring; Complete Time: 00:04 rn EC:14 Rate is 65 beats/min. Rhythm is regular. QRS [place] is Normal. DC interval is normal. QRS rn interval is normal. QT interval is normal. No Q waves. T waves are Normal. No ST changes noted. Clinical impression: Normal ECG. Interpreted by me. Reviewed by me. Administered Medications: 00:21 Drug: NS 0.9% 1000 ml Route: IV; Rate: 1000 ml; Site: right antecubital; bb 01:16 Follow up: IV Status: Completed infusion; IV Intake: 950ml bb Disposition Summary: 04/30/22 01:58 Discharge Ordered Location: Home rn Problem: new rn Symptoms: have improved rn Condition: Stable rn Diagnosis - Cannabis use, unspecified with intoxication, uncomplicated rn Followup: rn - With: Private Physician - When: As needed - Reason: Recheck today's complaints, Re-evaluation by your physician Discharge Instructions: - Discharge Summary Sheet rn - Preventing Marijuana Misuse rn Forms: - Medication Reconciliation Form rn - Thank You Letter rn - Antibiotic government affairs specialist - Prescription Opioid Use rn Signatures: Dispatcher [employer] Ivett Garcia RN RN Dane Allison MD MD rn
[2022-04-30 06:57] VITALS: TEMP 98.8
[2022-04-30 07:17] VITALS: O2SAT 98
[2022-04-30 07:28] VITALS: BP 134/64
--- NOTE | 2022-04-30 10:51 | EKG ---
Test Date: 2022-04-30 Test Time: 00:49:39 Postdoctoral Scientist: JENI MEASUREMENT RESULTS: Intervals: Rate: 65 IL: 178 QRSD: 94 QT: 438 QTc: 455 [place]: P: 17 IL: 178 QRS: 38 T: 22 INTERPRETIVE STATEMENTS: Normal sinus rhythm with sinus arrhythmia Nonspecific ST and T wave abnormality Abnormal ECG Compared to ECG 06/04/2021 19:31:42 ST (T wave) deviation now present Electronically Signed On 04-30-22 10:49:54 CDT by Rodney Pierce
== END 2022-04-30 02:16 | disposition home or self-care (01) ==
LOC: ER 23:46
DX: F12.929 Cannabis use, unspecified with intoxication, unspecified (principal); F17.210 Nicotine dependence, cigarettes, uncomplicated; F31.9 Bipolar disorder, unspecified
CPT/HCPCS: 93005; 85025; 80048; 36415; 82947; 80307; 96360; 99284; J7030

== ENCOUNTER 2022-05-08 21:57 | Emergency (ER) | payer OTHER ==
--- OUTSIDE RECORDS SUMMARY | 2022-05-08 22:01 | XMS REPORT | Continuity of Care Document ---
:2000 Author Organization [facility] t Address [address] [place] [address] Care Team Providers Name Role Phone Peña [...] AYLEEN AYLEEN Disease Active [facility] (obstructi (obstructi - it y of ve sleep ve sleep 00:00: [place] apnea) apnea) 00 Medical Branch History of History of Disease Active U seraers depression depression 1-11 it y of 00:00: [place] 00 Medical [facility] 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 1-05 ity of diabetes diabetes 00:00: [place] 00 [facility] Branch Obesity, Obesity, Disease Active 2014-08 Unive rs morbid, morbid, 2-01 ity of BMI BMI 00:00: [place] 40.0-49.9 40.0-49.9 00 [facility] Branch Abnormal Abnormal Disease Active 2014-08 Unive rs weight weight 2-01 ity of gain gain 00:00: [place] 00 [facility] Type 2 Type 2 Disease Active 2014-08 Univers diabetes diabetes 2-01 ity of mellitus mellitus 00:00: [place] without without 00 Medical complicati complicati Br anch on on Acanthosis Acanthosis Disease Active 2014-08 U nivers nigricans nigricans 2- ity of 00:00: [place] 00 [facility] Branch Elevated Elevated Disease Active 2014-08 Unive rs systolic systolic 2-01 ity of blood blood 00:00: [place] pressure pressure 00 Medica l Branch Allergies, Adverse Reactions, Alerts Allergy Allergy Status Severity Reaction(s) Onset Inactive Treating Comm ents Source Name Type Date Date Clinician No Known Drug Active [facility] NO KNOWN Drug Active [facility] Class ity of S [facility] Social History Social Habit Start Date Stop Date Quantity Comments Source Sex Assigned At [facility] Medical Branch Alcohol intake 2017-07-28 2017-07-28 [facility] 00:00:00 00:00:00 Medical Branch Smoking Status Start Date Stop Date Source Never smoker [facility] Medications Ordered Filled Start Stop Current Ordering [...] 00 Medical STRIPS) Branch strip metformin Yes [id number] 750mg Take 1 Univers ER 750 mg 6-05 tablet by ity o f 24 hr 00:00: mouth [place] tablet 00 daily. Medical With Branch dinner Insulin Yes [id number] Taking 1 U nivers [place], 9 injection ity of Disposable, 00:00: daily [place] (SURE-FINE 00 Medical PEN Branch NEEDLES) 31 gauge x 5/16" Ndle loratadine- 2014-08 Yes [id number] 1{tbl} Take 1 Tab Univers pseudoephed 2-01 [...] Type Clinicians Facility Department ID 2019-11-09 2019[facility]09 [facility] [id number] Univers 13:19:00 23:59:00 Encounter Peña LEIGH [id number] ity MEDICAL [id number] [facility] [id number] [address] 2019-11-09 2019-11-09 Outpatient R BHARATI [facility] [id number] Univers 00:00:00 00:00:00 PEÑA squires o f [facility] 2019-11-08 2019-11-08 Emergency [facility] [id number] [address] 22:22:00 22:22:00 [facility] 2019-11-08 2019-11-08 Emergency [facility] [id number] [address] 22:22:00 22:22:00 [id number] [facility] Results Test Description Test Time Test Comments Results Result Comments Source Hemoglobin A1c 2019-11-14 06:51:27 Test Item Value Reference Range Interpretation Comme nts Hemoglobin A1c (test code = 5.0 % 4.8-5.9 Non Diabetic 4.8-5.9%Diabetic <7.0% Hemoglobin A1c) Thyroid Stimulating [id number] 04:42:51 Test Item Value Reference Range Interpretation Comments TSH (test code = TSH) 1.030 mIU/mL 0.270-4.200 Lipid [id number] 04:37:04 Test Item Value Reference Range Interpretation Comments Cholesterol Total 126 mg/dL 0-200 RISK OF HE ART (test code = DISEASEPublishe d by Cholesterol Total) [employer] Toña lyte Optimal Borderl ine [...] is LDL/HDL Ratio=L DL Calc/HDL Chol RPR [id number] 14:25:53 Test Item Value Reference Range Interpretation Comments RPR Qual (test code = RPR Qual) Non-Reactive Non-Reactive Reactive Control (test code = Reactive Reactive Control) Weak Reactive Control (test Weak Reactive code = Weak Reactive Control) Non-Reactive Control (test code Non-Reactive = Non-Reactive Control) Lot # (test code = Lot #) [id number] Expiration Dt (test code = 08-22-20 N Expiration Dt) Urinalysis [id number] 06:13:44 Test Item Value Reference Range Interpretation Comments UA WBC (test code = UA WBC) 6-10 0-5 A UA RBC (test code = UA RBC) 0-5 0-5 UA Bacteria (test code = UA Moderate A Bacteria) UA Squam Epithelial (test code = UA 6-10 A Squam Epithelial) UA Mucous (test code = UA Mucous) Moderate A Urine Drug [id number] 05:55:29 Test Item Value Reference Range Interpretation [...] if desired . Urinalysis with Microscopic if [id number] 05:44:35 Test Item Value Reference Range Interpretation [...] Indicated Not Indicated A Ind?) Comprehensive Metabolic [id number] 01:23:11 Test Item Value Reference Range Interpretation [...] A/G 2.5 ratio N Ratio) Comprehensive Metabolic [id number] 01:23:11 Test Item Value Reference Range Interpretation [...] the National Kidney Foundation, http://nkdep.ni h.gov Alcohol [id number] 01:23:11 Test Item Value Reference Range Interpretation Comments Ethanol Level (test <0.00 g/dL 0.00-0.01 Intoxica jessica 0.080 g/dL code = Ethanol or more Level) Ethanol Inst (test <0 N code = Ethanol Inst) Comprehensive Metabolic [id number] 01:23:11 Test Item Value Reference Range Interpretation [...] Foundation, http://nkdep.ni h.gov Complete Blood Count with [id number] 01:06:15 Test Item Value Reference Range Interpretation [...] code = IPF) 0 % N Automated [id number] 01:06:15 Test Item Value Reference Range Interpretation Comments Neutro Auto (test code = Neutro 56.2 % 36.0-70.0 Auto) Lymph Auto (test code = Lymph Auto) 34.2 % 12.0-44.0 [place] Auto (test code = [place] Auto) 8.6 % 0.0-11.0 Eos, Auto (test code = Eos, Auto) 0.2 % 0.0-7.0 Basophil Auto (test code = Basophil 0.6 % 0.0-2.0 Auto) Neutro Absolute (test code = Neutro 4.6 x10 1.6-7.4 Absolute) Lymph Absolute (test code = Lymph 2.78 x10 .50-4.60 Absolute) [place] Absolute (test code = [place] .70 x10 .00-1.20 Absolute) Eos Absolute (test code = Eos 0.02 x10 0.00-0.74 Absolute) Baso Absolute (test code = Baso 0.05 x10 0.00-0.21 Absolute) IG [id number] 01:06:15 Test Item Value Reference Range Interpretation Comments IG (test code = IG) 0.2 % 0.0-5.0 IG Abs (test code = IG Abs) 0 x10 N
[2022-05-08] MEDS ORDERED: NA CHLORIDE 0.9% 1,000 ML ONE (23:34)
[2022-05-08 23:36] LABS: Absolute Lymphocytes (CBC) 2.1 K/uL (0.7-4.9); Hematocrit 43.5 % (39.6-49.0); MCV 88.4 fL (80-100); MPV 8.3 fL (7.6-11.3); RBC Red Blood Cell Count 4.92 M/uL (4.33-5.43)
[2022-05-08 23:41] LABS: Protime INR 0.96
[2022-05-08 23:56] LABS: ALT/SGPT 40 U/L (12-78); AST/SGOT 19 U/L (15-37); Albumin 4.1 g/dL (3.4-5.0); Alkaline Phosphatase 66 U/L (45-117); BUN Blood Urea Nitrogen 19 mg/dL (7-18); Bicarbonate 26 mmol/L (21-32); Bilirubin Direct < 0.1 mg/dL (0-0.2); Bilirubin Total 0.3 mg/dL (0.2-1.0); Glomerular Filtration Rate 93 ml/min (=/>90); Glucose Level 132 mg/dL (74-106); Potassium 4.3 mmol/L (3.5-5.1); Protein, Total 7.2 g/dL (6.4-8.2); Sodium Level 139 mmol/L (136-145)
[2022-05-09 00:41] LABS: Urine Blood Negative (Negative); Urine Glucose Negative (Negative); Urine Protein Negative (Negative); Urine Specific Gravity >=1.030 (1.005-1.030)
[2022-05-09 01:16] LABS: Barbiturates NEGATIVE (NEGATIVE); Benzodiazepines NEGATIVE (NEGATIVE); Cocaine NEGATIVE (NEGATIVE); METHAMPHETAM NEGATIVE (NEGATIVE); Methadone NEGATIVE (NEGATIVE); Opiates NEGATIVE (NEGATIVE); Phencyclidine NEGATIVE (NEGATIVE); THC Cannibis POSITIVE (NEGATIVE)
--- NOTE | 2022-05-09 03:09 | EDPHYS ---
Physician Documentation [facility] Name: Nghia Estrada Age: 21 yrs Sex: Male : 2000 Arrival Date: 05/08/2022 Time: 22:05 Bed 2 Private MD: ED Physician Bartolo Mantilla HPI: 05/08 22:35 This 21 yrs old Male presents to ER via EMS with complaints of Palpitations. cp 22:35 The patient presents to the emergency department after a known overdose, a result of cp recreational substance abuse. Context: Method: the patient has a confirmed or suspected ingestion, Time: 30 minute(s) ago, Extent: 12 tablets of Trazodone, the OD/poisoning occurred at at home. Associated signs and symptoms: Pertinent positives: palpitations, Pertinent negatives: auditory hallucinations, visual hallucinations. Severity of symptoms: in the emergency department the symptoms are unchanged despite EMS interventions. Historical: - Allergies: 22:12 No Known Allergies; ke1 - PMHx: 22:12 Bipolar disorder; diabetes mellitus; ke1 - Immunization history:: Client reports having NOT received the Covid vaccine. - Social history:: Smoking status: Patient reports the use of cigarette tobacco products, smokes one pack cigarettes per day. ROS: 22:40 Constitutional: Negative for body aches, chills, fever, poor PO intake. cp 22:40 Cardiovascular: Positive for palpitations, Negative for chest pain. cp 22:40 Eyes: Negative for injury, pain, redness, and discharge. cp 22:40 Respiratory: Negative for cough, shortness of breath, wheezing. cp 22:40 Abdomen/GI: Positive for nausea, Negative for abdominal pain, vomiting, diarrhea, cp constipation. 22:40 Neuro: Negative for altered mental status, headache, weakness. 22:40 Psych: Negative for homicidal ideation, suicide gesture, suicidal ideation. 22:40 All other systems are negative. Exam: 22:30 ECG was reviewed by the Attending Physician. cp 22:45 Constitutional: The patient appears in no acute distress, alert, awake, cp non-diaphoretic, non-toxic, well developed, well nourished. 22:45 Head/Face: Normocephalic, atraumatic. cp 22:45 Eyes: Periorbital structures: appear normal, Pupils: equal, round, and reactive to cp light and accomodation, Extraocular movements: intact throughout, Conjunctiva: normal, no exudate, no injection, Sclera: no appreciated abnormality, Lids and lashes: appear normal, bilaterally. 22:45 ENT: External ear(s): are unremarkable, Ear canal(s): are normal, clear, TM's: dullness, bilaterally, Nose: is normal, Mouth: Lips: moist, Oral mucosa: pink and intact, moist, Posterior pharynx: Airway: no evidence of obstruction, patent. 22:45 Neck: ROM/movement: is normal, is supple, without pain, no range of motions cp limitations, no nuchal rigidity. 22:45 Chest/axilla: Inspection: normal, Palpation: is normal, no crepitus, no tenderness. 22:45 Cardiovascular: Rate: tachycardic, Rhythm: regular, Edema: is not appreciated, JVD: is not appreciated. 22:45 Respiratory: the patient does not display signs of respiratory distress, Respirations: normal, no use of accessory muscles, no retractions, labored breathing, is not present, Breath sounds: are clear throughout, no decreased breath sounds, no stridor, no wheezing. 22:45 Abdomen/GI: Inspection: abdomen appears normal, Palpation: abdomen is soft and non-tender, in all quadrants. 22:45 Neuro: Orientation: to person, place \T\ time. Mentation: is normal, Motor: moves all fours, strength is normal, Sensation: is normal. Vital Signs: 22:06 BP 146 / 83; Pulse 134; Resp 19; Temp 98.6; Pulse Ox 96% on R/A; Weight 113.4 kg; ke1 Height 5 ft. 7 in. (170.18 cm); Pain 5/10; 23:53 BP 156 / 80; Pulse 99; Resp 19; Pulse Ox 94% on R/A; Pain 0/10; ke1 23:53 Temp 98.4(O); ke1 05/09 01:00 BP 139 / 62; Pulse 77; Resp 13; Pulse Ox 95% on R/A; jb4 05/08 22:06 Body Mass Index 39.16 (113.40 kg, 170.18 cm) ke MDM: 05/08 22:37 Patient medically screened. cp 05/09 01:30 Data reviewed: vital signs, nurses notes, lab test result(s), EKG, I have discussed the cp patient's presentation/case with the attending Emergency Department Physician;. 01:30 Test interpretation: by ED physician or midlevel provider: ECG. 05/08 22:35 Order name: Acetaminophen; Complete Time: 00:12 05/08 22:35 Order name: Basic Metabolic Panel; Complete Time: 00:12 05/09 00:12 Interpretation: Normal except: GLUC 132; BUN 19. 05/08 22:35 Order name: CBC with Diff; Complete Time: 00:12 05/09 01:17 Interpretation: Reviewed. 05/08 22:35 Order name: ETOH Level; Complete Time: 00:12 05/08 22:35 Order name: Hepatic Function; Complete Time: 00:12 05/08 22:35 Order name: PT-INR; Complete Time: 00:12 05/08 22:35 Order name: Ptt, Activated; Complete Time: 00:12 05/08 22:35 Order name: Salicylate; Complete Time: 00:12 05/08 22:35 Order name: Urine Drug Screen; Complete Time: 01:16 05/08 22:35 Order name: EKG; Complete Time: 22:36 05/08 22:35 Order name: EKG - Nurse/Tech; Complete Time: 23:10 05/08 22:35 Order name: IV Saline Lock; Complete Time: 23:31 05/09 00:42 Order name: Urine Dipstick-Ancillary; Complete Time: 01:04 EDNY 05/08 22:35 Order name: Labs collected and sent; Complete Time: 23:31 05/08 22:35 Order name: Suicide Screening (Gray); Complete Time: 23:31 05/08 22:35 Order name: Urine Dipstick-Ancillary (obtain specimen); Complete Time: 02:54 cp EC/16 22:30 Rate is 128 beats/min. Rhythm is regular. NH interval is normal. QRS interval is cp normal. QT interval is normal. T waves are Inverted in lead aVR. Interpreted by me. Reviewed by me. Administered Medications: 23:31 Drug: NS 0.9% 1000 ml Route: IV; Rate: 1 bolus; Site: left wrist; ke1 Disposition Summary: 05/09/22 03:08 Discharge Ordered Location: Home todd Problem: new todd Symptoms: have improved todd Condition: Stable todd Diagnosis - Adverse effect of unspecified antidepressants, initial encounter todd - Palpitations todd Followup: cp - With: Private Physician - When: 2 - 3 days - Reason: Recheck today's complaints Discharge Instructions: - Discharge Summary Sheet cp - Palpitations cp Forms: - Medication Reconciliation Form todd - Thank You Letter todd - Antibiotic Education todd - Prescription Opioid Use todd Signatures: Dispatcher [employer] EDBartolo Allison MD MD cha Page, Corey PA PA Rosy Guillory, RN RN ke1
--- NOTE | 2022-05-09 03:09 | ER ---
Nurse's Notes [facility] Name: Nghia Estrada Age: 21 yrs Sex: Male : 2000 Arrival Date: 05/08/2022 Time: 22:05 Bed 2 Private MD: Diagnosis: Adverse effect of unspecified antidepressants, initial encounter;Palpitations Presentation: 05/08 22:06 Chief complaint: Patient states: Took 12 pills of trazodone for left leg pain and felt ke1 heart racing. Coronavirus screen: Vaccine status: Patient reports being unvaccinated. Ebola Screen: No symptoms or risks identified at this time. Initial Sepsis Screen: Does the patient meet any 2 criteria? No. Patient's initial sepsis screen is negative. Does the patient have a suspected source of infection? No. Patient's initial sepsis screen is negative. Risk Assessment: Do you want to hurt yourself or someone else? Patient reports no desire to harm self or others. Onset of symptoms was May 08, 2022 at 21:00. 22:06 Method Of Arrival: EMS ke1 22:06 Acuity: RUBIO 3 ke1 Triage Assessment: 22:12 General: Appears in no apparent distress. Behavior is appropriate for age. Pain: ke1 Complains of pain in chest Pain at worst was 5 out of 10 on a pain scale. level that patient reports is acceptable is 5 out of 10 on a pain scale. Quality of pain is described as heart racing. Historical: - Allergies: 22:12 No Known Allergies; ke1 - PMHx: 22:12 Bipolar disorder; diabetes mellitus; ke1 - Immunization history:: Client reports having NOT received the Covid vaccine. - Social history:: Smoking status: Patient reports the use of cigarette tobacco products, smokes one pack cigarettes per day. Screenin:16 Abuse screen: Denies threats or abuse. Nutritional screening: No deficits noted. ke1 Tuberculosis screening: No symptoms or risk factors identified. Fall Risk None identified. Assessment: 22:23 Reassessment: Poison control: [id number]. Labs (CMP, Mag , alcohol, drugs...) , start ke1 fluid, EKG and telemetry, if QTC> 450 treat with Mag 1 gm over an hour then recheck 30 mn after. Give benzo if needed for seizures. With trazodone possible Priotism, bradycardia, seizure, QTC prolongation. Monitor patient for at least 6 hours. Patient denies pain at this time. 23:00 Reassessment: Patient appears in no apparent distress at this time. Patient and/or jb4 family updated on plan of care and expected duration. Pain level reassessed. Patient is alert, oriented x 3, equal unlabored respirations, skin warm/dry/pink. 05/09 00:00 Reassessment: Patient appears in no apparent distress at this time. Patient and/or jb4 family updated on plan of care and expected duration. Pain level reassessed. Patient is alert, oriented x 3, equal unlabored respirations, skin warm/dry/pink. Vital Signs: 05/08 22:06 BP 146 / 83; Pulse 134; Resp 19; Temp 98.6; Pulse Ox 96% on R/A; Weight 113.4 kg; ke1 Height 5 ft. 7 in. (170.18 cm); Pain 5/10; 23:53 BP 156 / 80; Pulse 99; Resp 19; Pulse Ox 94% on R/A; Pain 0/10; ke1 23:53 Temp 98.4(O); ke1 05/09 01:00 BP 139 / 62; Pulse 77; Resp 13; Pulse Ox 95% on R/A; jb4 05/08 22:06 Body Mass Index 39.16 (113.40 kg, 170.18 cm) [facility] ED Course: 05/08 22:05 Patient arrived in ED. ds4 22:06 Rosy Ramirez, RN is Primary Nurse. ke1 22:11 EKG done, by ED staff, reviewed by Bartolo Mantilla MD. zm 22:12 Triage completed. ke1 22:12 Patient has correct armband on for positive identification. Bed in low position. Call zm light in reach. Side rails up X2. color television console monitor on. Pulse ox on. NIBP on. 22:13 Inserted saline lock: Maintain EMS IV. Dressing intact. Good blood return noted. Site zm clean \T\ dry. 22:35 Bartolo Kingsley PA is PHCP. cp 22:35 Bartolo Mantilla MD is Attending Physician. cp 05/09 03:23 No provider procedures requiring assistance completed. IV discontinued. ke1 Administered Medications: 05/08 23:31 Drug: NS 0.9% 1000 ml Route: IV; Rate: 1 bolus; Site: left wrist; ke1 Medication: 05/09 03:23 VIS not applicable for this client. ke1 Outcome: 03:08 Discharge ordered by . todd 03:23 Discharged to home ambulatory. ke1 03:23 Condition: good 03:23 Discharge instructions given to patient. 03:24 Patient left the ED. ke1 Signatures: Bartolo Mantilla MD MD cha Swanson, Donovan ds4 Bartolo Kingsley PA PA cp Bryson, James, RN RN jb4 Rosy Ramirez RN RN ke1 Cortney Baugh
[2022-05-10 15:26] VITALS: TEMP 98.4
[2022-05-10 15:29] VITALS: BP 139/62; O2SAT 95
--- NOTE | 2022-05-13 06:45 | EKG ---
Test Date: 2022-05-08 Test Time: 22:10:51 [place]: MUKUND MEASUREMENT RESULTS: Intervals: Rate: 128 HI: 162 QRSD: 88 QT: 296 QTc: 432 [place]: P: 49 HI: 162 QRS: 53 T: 28 INTERPRETIVE STATEMENTS: Sinus tachycardia Possible Left atrial enlargement Nonspecific T wave abnormality Abnormal ECG Compared to ECG 04/30/2022 00:49:39 T-wave abnormality now present Sinus rhythm no longer present Sinus arrhythmia no longer present ST (T wave) deviation no longer present Electronically Signed On 05-13-22 06:33:03 CDT by Rodney Pierce
== END 2022-05-09 03:24 | disposition home or self-care (01) ==
LOC: ER 21:57
DX: R00.2 Palpitations (principal); T43.205A Adverse effect of unspecified antidepressants, initial encounter; F17.210 Nicotine dependence, cigarettes, uncomplicated
CPT/HCPCS: 93005; 85025; 80048; 36415; 80320; 80329 ×2; 85610; 80076; 85730; 81003; 80307; 99284; J7030

== ENCOUNTER 2022-05-10 15:06 | Emergency (ER) | payer OTHER ==
--- OUTSIDE RECORDS SUMMARY | 2022-05-10 15:09 | XMS REPORT | Continuity of Care Document ---
:2000 Author Organization [facility] t Address [address] [place] [address] Care Team Providers Name Role Phone Peña [...] prone 1-05 ity of diabetes diabetes 00:00: [place] 00 Medical Branch Obesity, Obesity, Disease Active 2014-08 Unive rs morbid, morbid, 2- ity of BMI BMI 00:00: [place] 40.0-49.9 40.0-49.9 00 [facility] Branch Abnormal Abnormal Disease Active 2014-08 Unive rs weight weight 2- ity of gain gain 00:00: [place] 00 Medical Branch Type 2 Type 2 Disease Active 2014-08 Univers diabetes diabetes 2- ity of mellitus mellitus 00:00: [place] without without 00 Medical complicati complicati Br anch on on Acanthosis Acanthosis Disease Active 2014-08 U nivers nigricans nigricans 2- ity of 00:00: [place] [facility] Elevated Elevated Disease Active 2015-1 Unive rs systolic systolic 2-01 ity of blood blood 00:00: [place] pressure pressure 00 Medica l Branch Allergies, Adverse Reactions, Alerts Allergy Allergy Status Severity Reaction(s) Onset Inactive Treating Comm ents Source Name Type Date Date Clinician No Known Drug Active [facility] NO KNOWN Drug Active [facility] ALLERGIE Class ity of [facility] [place] [facility] [place] Social History Social Habit Start Date Stop Date Quantity Comments Source Sex Assigned At [facility] y [facility] Medical Branch Alcohol intake 2017-07-28 2017-07-28 [facility] 00:00:00 00:00:00 Medical Branch Smoking Status Start Date Stop Date Source Never smoker [facility] Branch Medications Ordered Filled Start Stop Current Ordering [...] 00 Medical STRIPS) Branch strip metformin Yes [id number] 750mg Take 1 Univers ER 750 mg 6-05 tablet by ity o f 24 hr 00:00: mouth [place] tablet 00 daily. Medical With Branch dinner Insulin Yes [id number] Taking 1 U nivers [place], 9-06 injection ity of Disposable, 00:00: daily [place] (SURE-FINE 00 Medical PEN Branch NEEDLES) 31 gauge x 5/16" Ndle loratadine- 2014-08 Yes [id number] 1{tbl} Take 1 Tab Univers pseudoephed 2-01 by mouth ity of rine 00:00: daily. [place] (CLARITIN-D 00 Medical 24 HOUR) Branch 10-240 [...] Type Clinicians Facility Department ID 2019-11-09 2019-11-[address] [facility] [address] Bharati [id number] Univers 13:19:00 23:59:00 Encounter Peña [facility] [id number] ity [facility] [id number] [facility] [id number] [place] [id number] Branch 2019-11-09 2019-11-09 Outpatient R [facility] [id number] Univers 00:00:00 00:00:00 PEÑA squires o f [facility] 2019-11-08 2019-11-08 Emergency [facility] [id number] [address] 22:22:00 22:22:00 [facility] 2019-11-08 2019-11-08 Emergency [facility] [id number] [address] 22:22:00 22:22:00 -[id number] [facility] Results Test Description Test Time Test Comments Results Result Comments Source Hemoglobin A1c 2019-11-14 06:51:27 Test Item Value Reference Range Interpretation Comme nts Hemoglobin A1c (test code = 5.0 % 4.8-5.9 Non Diabetic 4.8-5.9%Diabetic <7.0% Hemoglobin A1c) Thyroid Stimulating [id number] 04:42:51 Test Item Value Reference Range Interpretation Comments TSH (test code = TSH) 1.030 mIU/mL 0.270-4.200 Lipid [id number] 04:37:04 Test Item Value Reference Range Interpretation Comments Cholesterol Total 126 mg/dL 0-200 RISK OF HE ART (test code = DISEASEPublishe d by Cholesterol Total) [employer] Toña lyte Optimal Borderl ine [...] is LDL/HDL Ratio=L DL Calc/HDL Chol RPR [id number] 14:25:53 Test Item Value Reference Range Interpretation Comments RPR Qual (test code = RPR Qual) Non-Reactive Non-Reactive Reactive Control (test code = Reactive Reactive Control) Weak Reactive Control (test Weak Reactive code = Weak Reactive Control) Non-Reactive Control (test code Non-Reactive = Non-Reactive Control) Lot # (test code = Lot #) [id number] Expiration Dt (test code = 08-22-20 N Expiration Dt) Urinalysis [id number] 06:13:44 Test Item Value Reference Range Interpretation Comments UA WBC (test code = UA WBC) 6-10 0-5 A UA RBC (test code = UA RBC) 0-5 0-5 UA Bacteria (test code = UA Moderate A Bacteria) UA Squam Epithelial (test code = UA 6-10 A Squam Epithelial) UA Mucous (test code = UA Mucous) Moderate A Urine Drug [id number] 05:55:29 Test Item Value Reference Range Interpretation [...] if desired . Urinalysis with Microscopic if [id number] 05:44:35 Test Item Value Reference Range Interpretation [...] Indicated Not Indicated A Ind?) Comprehensive Metabolic [id number] 01:23:11 Test Item Value Reference Range Interpretation [...] A/G 2.5 ratio N Ratio) Comprehensive Metabolic [id number] 01:23:11 Test Item Value Reference Range Interpretation [...] the National Kidney Foundation, http://nkdep.ni h.gov Alcohol [id number] 01:23:11 Test Item Value Reference Range Interpretation Comments Ethanol Level (test <0.00 g/dL 0.00-0.01 Intoxica jessica 0.080 g/dL code = Ethanol or more Level) Ethanol Inst (test <0 N code = Ethanol Inst) Comprehensive Metabolic [id number] 01:23:11 Test Item Value Reference Range Interpretation [...] not provided, and t he patient is -Paual n, multiply by 1.2 12. If sex [...] Foundation, http://nkdep.ni h.gov Complete Blood Count with [id number] 01:06:15 Test Item Value Reference Range Interpretation [...] code = IPF) 0 % N Automated [id number] 01:06:15 Test Item Value Reference Range Interpretation Comments Neutro Auto (test code = Neutro 56.2 % 36.0-70.0 Auto) Lymph Auto (test code = Lymph Auto) 34.2 % 12.0-44.0 Antelope Auto (test code = Antelope Auto) 8.6 % 0.0-11.0 Eos, Auto (test code = Eos, Auto) 0.2 % 0.0-7.0 Basophil Auto (test code = Basophil 0.6 % 0.0-2.0 Auto) Neutro Absolute (test code = Neutro 4.6 x10 1.6-7.4 Absolute) Lymph Absolute (test code = Lymph 2.78 x10 .50-4.60 Absolute) Antelope Absolute (test code = Antelope .70 x10 .00-1.20 Absolute) Eos Absolute (test code = Eos 0.02 x10 0.00-0.74 Absolute) Baso Absolute (test code = Baso 0.05 x10 0.00-0.21 Absolute) IG [id number] 01:06:15 Test Item Value Reference Range Interpretation Comments IG (test code = IG) 0.2 % 0.0-5.0 IG Abs (test code = IG Abs) 0 x10 N
[2022-05-10] MEDS ORDERED: LIDOCAINE 1% MPF 2 ML AMPULE ONE (15:42)
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
[2022-05-10 17:12] LABS: Absolute Lymphocytes (CBC) 1.5 K/uL (0.7-4.9); Hematocrit 47.9 % (39.6-49.0); Lymphocytes % 17.9 % (15.3-44.8); MCV 90.1 fL (80-100); MPV 8.6 fL (7.6-11.3); RBC Red Blood Cell Count 5.31 M/uL (4.33-5.43)
[2022-05-10 17:21] LABS: Protime INR 0.96
[2022-05-10 17:22] LABS: SARS-CoV-2 Antigen Rapid Res Negative (Negative)
[2022-05-10 17:38] LABS: ALT/SGPT 43 U/L (12-78); AST/SGOT 21 U/L (15-37); Albumin 4.3 g/dL (3.4-5.0); Alkaline Phosphatase 71 U/L (45-117); BUN Blood Urea Nitrogen 15 mg/dL (7-18); Bicarbonate 27 mmol/L (21-32); Bilirubin Direct 0.1 mg/dL (0-0.2); Bilirubin Total 0.3 mg/dL (0.2-1.0); Glomerular Filtration Rate 102 ml/min (=/>90); Glucose Level 113 mg/dL (74-106); Potassium 4.1 mmol/L (3.5-5.1); Protein, Total 7.3 g/dL (6.4-8.2); Sodium Level 138 mmol/L (136-145)
[2022-05-10] MEDS ORDERED: NICOTINE 21 MG/PAT TD ONE (18:12)
[2022-05-10] MEDS ORDERED: TDAP (DIPHTH,PERTUSS(ACELL),TET VAC) 0.5 ML VIAL IMVAC ONE (18:15)
[2022-05-10 19:53] LABS: Urine Blood Negative (Negative); Urine Glucose Negative (Negative); Urine Protein Negative (Negative); Urine Specific Gravity >=1.030 (1.005-1.030)
[2022-05-10 20:30] LABS: Barbiturates NEGATIVE (NEGATIVE); Benzodiazepines NEGATIVE (NEGATIVE); Cocaine NEGATIVE (NEGATIVE); METHAMPHETAM NEGATIVE (NEGATIVE); Methadone NEGATIVE (NEGATIVE); Opiates NEGATIVE (NEGATIVE); Phencyclidine NEGATIVE (NEGATIVE); THC Cannibis POSITIVE (NEGATIVE)
[2022-05-10] MEDS ORDERED: MELATONIN 5 MG TABLET PO ONE (21:07)
[2022-05-12 08:23] VITALS: TEMP 99
[2022-05-12 08:25] VITALS: BP 162/80; O2SAT 100
--- NOTE | 2022-05-13 06:40 | EKG ---
Test Date: 2022-05-10 Test Time: 17:18:39 [employer] Supervisor: GREGORY MEASUREMENT RESULTS: Intervals: Rate: 59 AK: 156 QRSD: 92 QT: 444 QTc: 439 [place]: P: 26 AK: 156 QRS: 61 T: 35 INTERPRETIVE STATEMENTS: Sinus bradycardia with sinus arrhythmia Otherwise normal ECG Compared to ECG 05/08/2022 22:10:51 Sinus tachycardia no longer present T-wave abnormality no longer present Electronically Signed On 05-13-22 06:32:32 CDT by Rodney Pierce
== END 2022-05-10 23:28 ==
LOC: ER 15:06
PROC: 0JQG0ZZ Repair Right Lower Arm Subcutaneous Tissue and Fascia, Open Approach (ICD-10-PCS; principal; 2022-05-10)
DX: S51.811A Laceration without foreign body of right forearm, initial encounter (principal); F32.A Depression, unspecified; F17.210 Nicotine dependence, cigarettes, uncomplicated; Z20.822 Contact with and (suspected) exposure to COVID-19
CPT/HCPCS: 36415; 80048; 80076; 80307; 80320; 80329; 81003; 85025; 85610; 85730; 87811; 93005; 96372; 99285

== ENCOUNTER 2022-05-25 12:13 | Emergency (ER) | payer OTHER ==
--- OUTSIDE RECORDS SUMMARY | 2022-05-25 12:16 | XMS REPORT | Continuity of Care Document ---
:2000 Author Organization [facility] t Address [address] [place] [address] Care Team Providers Name Role Phone Peña [...] ity of diabetes diabetes 00:00: [place] 00 [facility] Obesity, Obesity, Disease Active 2014-08 Unive rs morbid, morbid, 2-01 ity of BMI BMI 00:00: [place] 40.0-49.9 40.0-49.9 00 [facility] Branch Abnormal Abnormal Disease Active 2014-08 Unive rs weight weight 2-01 ity of gain gain 00:00: [place] 00 Medical Branch Type 2 Type 2 Disease Active 2014-08 Univers diabetes diabetes 2-01 ity of mellitus mellitus 00:00: [place] without without 00 Medical complicati complicati Br anch on on Acanthosis Acanthosis Disease Active 2014-08 U nivers nigricans nigricans 2- ity of 00:00: [place] 00 [facility] Elevated Elevated Disease Active 2014-08 Unive rs systolic systolic 2-01 ity of blood blood 00:00: [place] pressure pressure 00 Medica l Branch Allergies, Adverse Reactions, Alerts Allergy Allergy Status Severity Reaction(s) Onset Inactive Treating Comm ents Source Name Type Date Date Clinician No Known Drug Active [facility] NO KNOWN Drug Active [facility] Class ity of S [facility] Social History Social Habit Start Date Stop Date Quantity Comments Source Sex Assigned At [facility] Medical Branch Alcohol intake 2017-07-28 2017-07-28 [facility] 00:00:00 00:00:00 Medical Branch Smoking Status Start Date Stop Date Source Never smoker [facility] Medications Ordered Filled Start Stop Current [...] 00 Medical STRIPS) Branch strip metformin Yes [id number] 750mg Take 1 Univers ER 750 mg 6-05 tablet by ity o f 24 hr 00:00: mouth [place] tablet 00 daily. Medical With Branch dinner Insulin Yes [id number] Taking 1 U nivers [place], 9 injection ity of Disposable, 00:00: daily [place] (SURE-FINE 00 Medical PEN Branch NEEDLES) 31 gauge x 5/16" Ndle loratadine- 2014-08 Yes [id number] 1{tbl} Take 1 Tab Univers pseudoephed 2-01 by mouth ity of rine 00:00: daily. [place] (CLARITIN-D 00 Medical 24 HOUR) Branch 10-240 mg per 24 hr tablet Vital Signs Vital Name Observation Time Observation Value Comments Source Height/Length Measured 2021-09-09 09:51:09 172.7 cm Weight Dosing 2021-09-09 09:51:09 72.60 kg Height/Length Measured 2021-09-09 09:42:27 172.7 cm Weight [...] Date/Time Type Type Clinicians Facility Department ID 2022-05-10 Outpatient [facility] [id number] [place] 20:55:17 [id number] [facility] 2019-11-09 2019-11-09 [facility] Bharati [id number] Univers 13:19:00 23:59:00 Encounter [id number] [facility] [id number] [address] 2019-11-09 2019-11-09 [facility] [id number] Univers 00:00:00 00:00:00 PEÑA hu [facility] 2019-11-08 2019-11-08 Emergency [facility] [id number] [address] 22:22:00 22:22:00 [facility] 2019-11-08 2019-11-08 Emergency [facility] [id number] [address] 22:22:00 22:22:00 [id number] [facility] Results Test Description Test Time Test Comments Results Result Comments Source Hemoglobin A1c 2019-11-14 06:51:27 Test Item Value Reference Range Interpretation Comme nts Hemoglobin A1c (test code = 5.0 % 4.8-5.9 Non Diabetic 4.8-5.9%Diabetic <7.0% Hemoglobin A1c) Thyroid Stimulating [id number] 04:42:51 Test Item Value Reference Range Interpretation Comments TSH (test code = TSH) 1.030 mIU/mL 0.270-4.200 Lipid [id number] 04:37:04 Test Item Value Reference Range Interpretation Comments Cholesterol Total 126 mg/dL 0-200 RISK OF HE ART (test code = DISEASEPublishe d by Cholesterol Total) [employer] Toña lyte Optimal Borderl ine [...] is LDL/HDL Ratio=L DL Calc/HDL Chol RPR [id number] 14:25:53 Test Item Value Reference Range Interpretation Comments RPR Qual (test code = RPR Qual) Non-Reactive Non-Reactive Reactive Control (test code = Reactive Reactive Control) Weak Reactive Control (test Weak Reactive code = Weak Reactive Control) Non-Reactive Control (test code Non-Reactive = Non-Reactive Control) Lot # (test code = Lot #) [id number] Expiration Dt (test code = 08-22-20 N Expiration Dt) Urinalysis [id number] 06:13:44 Test Item Value Reference Range Interpretation Comments UA WBC (test code = UA WBC) 6-10 0-5 A UA RBC (test code = UA RBC) 0-5 0-5 UA Bacteria (test code = UA Moderate A Bacteria) UA Squam Epithelial (test code = UA 6-10 A Squam Epithelial) UA Mucous (test code = UA Mucous) Moderate A Urine Drug [id number] 05:55:29 Test Item Value Reference Range Interpretation [...] if desired . Urinalysis with Microscopic if [id number] 05:44:35 Test Item Value Reference Range Interpretation [...] Indicated Not Indicated A Ind?) Comprehensive Metabolic [id number] 01:23:11 Test Item Value Reference Range Interpretation [...] A/G 2.5 ratio N Ratio) Comprehensive Metabolic [id number] 01:23:11 Test Item Value Reference Range Interpretation [...] the National Kidney Foundation, http://nkdep.ni h.gov Alcohol [id number] 01:23:11 Test Item Value Reference Range Interpretation Comments Ethanol Level (test <0.00 g/dL 0.00-0.01 Intoxica jessica 0.080 g/dL code = Ethanol or more Level) Ethanol Inst (test <0 N code = Ethanol Inst) Comprehensive Metabolic [id number] 01:23:11 Test Item Value Reference Range Interpretation [...] Foundation, http://nkdep.ni h.gov Complete Blood Count with [id number] 01:06:15 Test Item Value Reference Range Interpretation [...] code = IPF) 0 % N Automated [id number] 01:06:15 Test Item Value Reference Range Interpretation Comments Neutro Auto (test code = Neutro 56.2 % 36.0-70.0 Auto) Lymph Auto (test code = Lymph Auto) 34.2 % 12.0-44.0 Leake Auto (test code = Leake Auto) 8.6 % 0.0-11.0 Eos, Auto (test code = Eos, Auto) 0.2 % 0.0-7.0 Basophil Auto (test code = Basophil 0.6 % 0.0-2.0 Auto) Neutro Absolute (test code = Neutro 4.6 x10 1.6-7.4 Absolute) Lymph Absolute (test code = Lymph 2.78 x10 .50-4.60 Absolute) Leake Absolute (test code = Leake .70 x10 .00-1.20 Absolute) Eos Absolute (test code = Eos 0.02 x10 0.00-0.74 Absolute) Baso Absolute (test code = Baso 0.05 x10 0.00-0.21 Absolute) IG [id number] 01:06:15 Test Item Value Reference Range Interpretation Comments IG (test code = IG) 0.2 % 0.0-5.0 IG Abs (test code = IG Abs) 0 x10 N
--- NOTE | 2022-05-25 12:46 | EDPHYS ---
Physician Documentation [facility] Name: Nghia Estrada Age: 21 yrs Sex: Male : 2000 Arrival Date: 05/25/2022 Time: 12:14 Bed 24 Private MD: ED Physician Ignacio Rodas HPI: 05/25 13:31 This 21 yrs old Male presents to ER via Ambulatory with complaints of Staple Removal. snw 12:21 The patient has marla on the pt has marla place to arm laceration on 05/10/22 here snw at [facility]. 12:48 Sutures/marla progress: The patient's wound displays wound dehiscence, on lateral snw third of laceration. The patient has not experienced similar symptoms in the past. The patient has been recently seen at the [facility] Emergency Department, marla placed on 05/10/22. pt had cut arm on piece of sheetmetal. Historical: - Allergies: 12:38 No Known Allergies; ap3 - Home Meds: 12:38 Lisinopril Oral [Active]; Seroquel Oral [Active]; ap3 - PMHx: 12:38 Bipolar disorder; diabetes mellitus; Hypertensive disorder; ap3 - Immunization history:: Client reports having NOT received the Covid vaccine. - Social history:: Smoking status: Patient reports the use of cigarette tobacco products, smokes one pack cigarettes per day. Reported history of juuling and/or vaping. ROS: 13:32 Constitutional: Negative for fever, chills, and weight loss, Eyes: Negative for injury, snw pain, redness, and discharge, ENT: Negative for injury, pain, and discharge, Neck: Negative for injury, pain, and swelling, Cardiovascular: Negative for chest pain, palpitations, and edema, Respiratory: Negative for shortness of breath, cough, wheezing, and pleuritic chest pain, Abdomen/GI: Negative for abdominal pain, nausea, vomiting, diarrhea, and constipation, Back: Negative for injury and pain, : Negative for injury, bleeding, discharge, and swelling, MS/Extremity: Negative for injury and deformity, Skin: Negative for injury, rash, and discoloration, Neuro: Negative for headache, weakness, numbness, tingling, and seizure, Psych: Negative for depression, anxiety, suicide ideation, homicidal ideation, and hallucinations. Exam: 13:32 Constitutional: This is a well developed, well nourished patient who is awake, alert, snw and in no acute distress. Head/Face: Normocephalic, atraumatic. Eyes: Pupils equal round and reactive to light, extra-ocular motions intact. Lids and lashes normal. Conjunctiva and sclera are non-icteric and not injected. Cornea within normal limits. Periorbital areas with no swelling, redness, or edema. Chest/axilla: Normal chest wall appearance and motion. Nontender with no deformity. No lesions are appreciated. Cardiovascular: Regular rate and rhythm with a normal S1 and S2. No gallops, murmurs, or rubs. Normal PMI, no JVD. No pulse deficits. Respiratory: Lungs have equal breath sounds bilaterally, clear to auscultation and percussion. No rales, rhonchi or wheezes noted. No increased work of breathing, no retractions or nasal flaring. MS/ Extremity: Pulses equal, no cyanosis. Neurovascular intact. Full, normal range of motion. Neuro: Awake and alert, GCS 15, oriented to person, place, time, and situation. Cranial nerves II-XII grossly intact. Motor strength 5/5 in all extremities. Sensory grossly intact. Cerebellar exam normal. Normal gait. 13:32 Skin: Appearance: Color: normal in color, injury, laceration(s), that can be described as linear, wound edges mildly dehisced on lateral third of wound. [place] removed. Will cleanse with Hibiclens, place mupirocin, and dress. . Vital Signs: 12:36 BP 132 / 81; Pulse 92; Temp 98.8(O); Pulse Ox 98% ; Weight 113.4 kg; Height 5 ft. 8 in. ap3 (172.72 cm); 12:36 Body Mass Index 38.01 (113.40 kg, 172.72 cm) ap3 MDM: 12:35 Patient medically screened. snw 12:47 Data reviewed: vital signs. Data interpreted: Pulse oximetry: on room air is 98 %. snw Interpretation: normal. Counseling: I had a detailed discussion with the patient and/or guardian regarding: the historical points, exam findings, and any diagnostic results supporting the discharge/admit diagnosis, the presence of at least one elevated blood pressure reading (>120/80) during this emergency department visit, the need for outpatient follow up, for definitive care, to return to the emergency department if symptoms worsen or persist or if there are any questions or concerns that arise at home. Response to treatment: the patient's symptoms have mildly improved after treatment. Special discussion: I discussed in detail with the patient the higher chance of wound infection based on his presenting history. Based on the history and exam findings, there is no indication for further emergent testing or inpatient evaluation. I discussed with the patient/guardian the need to see the primary care provider for further evaluation of the symptoms. Administered Medications: 12:58 Drug: Hibiclens (chlorhexidine) Liquid 4 % 1 application Route: Topical; Site: right kb3 forearm; 12:58 Drug: Mupirocin Ointment 2 % 1 application Route: Topical; Site: right forearm; kb3 Disposition: 13:49 PA/WINDOW SHADE ESTIMATOR's history reviewed, patient interviewed, and examined. I agree with assessment jr11 and care plan and confirm the diagnosis (es) above. Attestation: The patient's history, exam findings, diagnostics, and a summary of any interventions or procedures was reviewed in detail with Angle CASTILLO. Disposition Summary: 05/25/22 12:45 Discharge Ordered Location: Home snw Condition: Stable snw Diagnosis - Encounter for staple removal snw - Disruption of wound, not elsewhere classified snw Followup: snw - With: Private Physician - When: 1 week - Reason: Recheck today's complaints, Continuance of care, Re-evaluation by your physician Discharge Instructions: - Discharge Summary Sheet snw - Delayed Wound Closure snw - How to Change Your Wound Dressing snw Forms: - Medication Reconciliation Form snw - Thank You Letter snw - Antibiotic Education snw - Prescription Opioid Use snw Prescriptions: - mupirocin 2 % Topical ointment - apply 1 application by TOPICAL route 2-3 times daily; 50 gram; Refills: 0, snw Product Selection Permitted Signatures: Angle Goins FNP-C [employer] Pricila Escobar RN RN ap3 Ignacio Rodas MD MD jr11 Humaira Fox RN RN kb3
--- NOTE | 2022-05-25 12:46 | ER ---
Nurse's Notes [facility] Name: Nghia Estrada Age: 21 yrs Sex: Male : 2000 Arrival Date: 05/25/2022 Time: 12:14 Bed 24 Private MD: Diagnosis: Encounter for staple removal;Disruption of wound, not elsewhere classified Presentation: 05/25 12:36 Chief complaint: Patient states: he is here to get marylu removed that he received at ap3 this facility approx 2 weeks ago. Coronavirus screen: At this time, the client does not indicate any symptoms associated with coronavirus-19. Ebola Screen: No symptoms or risks identified at this time. Initial Sepsis Screen: Does the patient meet any 2 criteria? No. Patient's initial sepsis screen is negative. Does the patient have a suspected source of infection? No. Patient's initial sepsis screen is negative. Risk Assessment: Do you want to hurt yourself or someone else? Patient reports no desire to harm self or others. Onset of symptoms was May 11, 2022. 12:36 Method Of Arrival: Ambulatory ap3 12:36 Acuity: RUBIO 4 ap3 Triage Assessment: 12:38 General: Appears in no apparent distress. Behavior is calm, cooperative, appropriate ap3 for age. Pain: Denies pain. Neuro: Level of Consciousness is awake, alert, obeys commands, Oriented to person, place, time. Respiratory: Airway is patent Respiratory effort is even, unlabored. Derm: Wound noted dorsal aspect of right forearm Wound is with marylu. Historical: - Allergies: 12:38 No Known Allergies; ap3 - Home Meds: 12:38 Lisinopril Oral [Active]; Seroquel Oral [Active]; ap3 - PMHx: 12:38 Bipolar disorder; diabetes mellitus; Hypertensive disorder; ap3 - Immunization history:: Client reports having NOT received the Covid vaccine. - Social history:: Smoking status: Patient reports the use of cigarette tobacco products, smokes one pack cigarettes per day. Reported history of juuling and/or vaping. Screenin:39 Abuse screen: Denies threats or abuse. Nutritional screening: No deficits noted. ap3 Tuberculosis screening: No symptoms or risk factors identified. Fall Risk None identified. Assessment: 12:40 General: Appears in no apparent distress. Behavior is calm, cooperative, Received care kb3 of pt from triage, ambulatory without distress. Marylu to right forearm laceration have been removed. No bleeding noted.. Vital Signs: 12:36 BP 132 / 81; Pulse 92; Temp 98.8(O); Pulse Ox 98% ; Weight 113.4 kg; Height 5 ft. 8 in. ap3 (172.72 cm); 12:36 Body Mass Index 38.01 (113.40 kg, 172.72 cm) ap3 ED Course: 12:14 Patient arrived in ED. rg4 12:21 Angle Goins FNP-C is PHCP. snw 12:21 Ignacio Rodas MD is Attending Physician. snw 12:38 Triage completed. ap3 12:39 Arm band placed on left wrist. ap3 12:40 Humaira Fox, RN is Primary Nurse. kb3 12:40 Patient has correct armband on for positive identification. kb3 12:40 No provider procedures requiring assistance completed. Patient did not have IV access kb3 during this emergency room visit. 12:55 Dressings: Marisol x 1 dorsal aspect of right forearm 4X4s X 1; dorsal aspect of right kb3 forearm. Wound care: to laceration located on dorsal aspect of right forearm was cleaned with Hibiclens, dressed with 4X4s, Kerlix, Mupirocin applied as ordered. Administered Medications: 12:58 Drug: Hibiclens (chlorhexidine) Liquid 4 % 1 application Route: Topical; Site: right kb3 forearm; 12:58 Drug: Mupirocin Ointment 2 % 1 application Route: Topical; Site: right forearm; kb3 Medication: 12:40 VIS not applicable for this client. ap3 Outcome: 12:45 Discharge ordered by . snw 13:04 Discharged to home ambulatory. kb3 13:04 Condition: stable 13:04 Discharge instructions given to patient, family, Instructed on discharge instructions, follow up and referral plans. wound care, Demonstrated understanding of instructions, follow-up care, medications, wound care, Prescriptions given X 1. 13:05 Patient left the ED. kb3 Signatures: Angle Goins FNP-C FOOD SAFETY SPECIALIST-Yissel Garcia rg4 Pricila Escobar RN RN ap3 Humaira Fox, RN RN kb3
[2022-05-25] MEDS ORDERED: MUPIROCIN 2% OINT 22GM TUBE TOP ONE (12:50)
[2022-05-25 13:12] VITALS: BP 132/81; TEMP 98.8; O2SAT 98
== END 2022-05-25 13:05 | disposition home or self-care (01) ==
LOC: ER 12:13
DX: Z48.02 Encounter for removal of sutures (principal); I10 Essential (primary) hypertension; E11.9 Type 2 diabetes mellitus without complications
CPT/HCPCS: 99283

== ENCOUNTER 2022-07-03 19:20 | Emergency (ER) | payer SELFPAY ==
[2022-07-03 19:45] LABS: Urine Blood Negative (Negative); Urine Glucose Trace (Negative); Urine Protein Negative (Negative); Urine Specific Gravity 1.025 (1.005-1.030)
[2022-07-03 20:12] LABS: Barbiturates NEGATIVE (NEGATIVE); Benzodiazepines POSITIVE (NEGATIVE); Cocaine NEGATIVE (NEGATIVE); METHAMPHETAM NEGATIVE (NEGATIVE); Methadone NEGATIVE (NEGATIVE); Opiates NEGATIVE (NEGATIVE); Phencyclidine NEGATIVE (NEGATIVE); THC Cannibis POSITIVE (NEGATIVE)
[2022-07-03] MEDS ORDERED: NICOTINE 21 MG/PAT TD ONE (20:32)
[2022-07-03] MEDS ORDERED: NA CHLORIDE 0.9% 1,000 ML ONE (20:32)
[2022-07-03 20:42] LABS: Absolute Lymphocytes (CBC) 2.9 K/uL (0.7-4.9); Hematocrit 48.6 % (39.6-49.0); Lymphocytes % 33.2 % (15.3-44.8); MCV 90.1 fL (80-100); MPV 8.8 fL (7.6-11.3); Protime INR 0.84
[2022-07-03 21:33] LABS: SARS-CoV-2 Antigen Rapid Res Negative (Negative)
--- NOTE | 2022-07-03 23:24 | ER ---
Nurse's Notes [facility] Name: Nghia Estrada Age: 21 yrs Sex: Male : 2000 Arrival Date: 07/03/2022 Time: 19:41 Bed 14 Private MD: Diagnosis: Bipolar disorder, unspecified;Suicidal ideations Presentation: 07/03 20:00 Acuity: RUBIO 3 ke1 20:00 Chief complaint: Police: Patient took some lexapro pills + consumed an alcoholic ke1 beverage then grabbed a firearm and threatened to commit suicide. Coronavirus screen: Vaccine status: Patient reports being unvaccinated. Ebola Screen: No symptoms or risks identified at this time. Initial Sepsis Screen: Does the patient meet any 2 criteria? No. Patient's initial sepsis screen is negative. Does the patient have a suspected source of infection? No. Patient's initial sepsis screen is negative. Risk Assessment: Do you want to hurt yourself or someone else? Patient reports no desire to harm self or others. Onset of symptoms was July 03, 2022 at 18:41. 20:00 Method Of Arrival: Law Enforcement: Jannie FORREST [facility] Triage Assessment: 20:00 General: Appears in no apparent distress. Behavior is calm, cooperative. Pain: Denies ke1 pain. Historical: - Allergies: 22:37 No Known Allergies; ke1 - PMHx: 22:35 Bipolar disorder; diabetes mellitus; Hypertensive disorder; ke1 - PSHx: 22:35 None; ke1 - Immunization history:: Adult Immunizations not immunized. - Social history:: Smoking status: Patient reports the use of cigarette tobacco products, smokes one pack cigarettes per day. - Family history:: not pertinent. Screenin:00 Abuse screen: Denies threats or abuse. Nutritional screening: No deficits noted. ke1 Tuberculosis screening: No symptoms or risk factors identified. Fall Risk None identified. Assessment: 20:00 Neuro: [place] Agitation-Sedation Scale (RASS): 0 - Alert and Calm Level of ke1 Consciousness is awake, alert, Oriented to person, place, time, situation. Respiratory: Respiratory effort is even, unlabored, Respiratory pattern is regular, symmetrical. 21:21 General: Father states his son has been seen at [facility], and he would like for tw5 him to go there.. 07/04 02:34 Neuro: [place] Agitation-Sedation Scale (RASS): +4 Combative. ke1 02:44 Reassessment: Patient aggressive towards staff because he wants to leave, pulled out ke1 his IV , code rosenberg called. 03:15 Neuro: [place] Agitation-Sedation Scale (RASS): 0 - Alert and Calm. ke1 03:34 Reassessment: Patient lying in bed sleeping. ke1 05:45 Reassessment: Nurse to Nurse to Angelika at [facility]. ke1 06:50 Neuro: [place] Agitation-Sedation Scale (RASS): 0 - Alert and Calm. ke1 06:51 Reassessment: Patient wants to make call to father to bring him his cigarettes in order ke1 to smoke at [facility], call made by nurse , patient is on the phone with father. Vital Signs: 07/03 19:52 BP 153 / 97; Pulse 127; Resp 20; Temp 99.6; Pulse Ox 97% ; Weight 122.47 kg; Height 5 ke1 ft. 7 in. (170.18 cm); Pain 0/10; 07/04 05:46 BP 142 / 82; Pulse 86; Resp 16; Temp 98.6(O); Pulse Ox 98% ; ke1 07/03 19:52 Body Mass Index 42.29 (122.47 kg, 170.18 cm) ke1 ED Course: 07/03 19:41 Patient arrived in ED. mw2 19:44 Rosy Ramirez, RN is Primary Nurse. ke1 19:45 Placed in gown. Valuables inventory done. See valuables checklist. Patient is placed in tw5 psych hold. 19:45 Urine collected: clean catch specimen, clear, Amount Voided: 100mL. tw5 19:46 Urine Drug Screen Sent. tw5 20:00 Arm band placed on left wrist. ke1 20:00 Initial lab(s) drawn, by me, sent to lab. COVID swab sent to lab. Inserted saline lock: mm9 20 gauge in right antecubital area, using aseptic technique. Blood collected. 20:02 Acetaminophen Sent. mm9 20:02 Basic Metabolic Panel Sent. mm9 20:02 CBC with Diff Sent. mm9 20:02 ETOH Level Sent. mm9 20:02 Hepatic Function Sent. mm9 20:02 PT-INR Sent. mm9 20:02 Ptt, Activated Sent. mm9 20:02 Salicylate Sent. mm9 20:05 Bartolo Mantilla MD is Attending Physician. [facility] 20:20 Diet: FINGER FOOD. mm9 20:44 EKG done, by ED staff, reviewed by Bartolo Mantilla MD. mm9 20:48 SARS RAPID Sent. mm9 23:51 Triage completed. ke1 07/04 01:53 faxed patient information to all available [facility] facilities. mw2 05:37 nurse to nurse with Ladonna from [facility]. mw2 05:59 administrative approval given by Ottoniel Gallegos to Josie Garcia/ patient has been accepted eb to [facility]/ Dr. Santiago has accepted the patient in transfer/ report already given during nurse to nurse/. 06:05 No provider procedures requiring assistance completed. ke1 06:48 called [facility] to verify approval/ per intake they have accepted the patient. 07:12 Safety Checks: Personal items have been removed. The door is open or patient has been vg1 placed in a hallway bed/chair. Sitter present at this time. appears in NAD; resting with eyes closed. 08:24 Primary Nurse role handed off by Rosy Ramirez RN 08:29 Patient did not have IV access during this emergency room visit. vg1 Administered Medications: 07/03 20:38 Drug: NS 0.9% 1000 ml Route: IV; Rate: 1 bolus; Site: right antecubital; ke1 21:15 Follow up: IV Status: Completed infusion ke1 20:38 Drug: Nicotine Patch 21 mg/24 hr 1 patches Route: Transdermal; Site: anterior chest ke1 wall; 07/04 02:44 Drug: Ativan (LORazepam) 2 mg Route: IVP; Site: right antecubital; ke1 03:00 Follow up: Response: RASS: Agitated (+2) ke1 Medication: 08:29 VIS not applicable for this client. vg1 Outcome: 07/03 23:24 ER care complete, transfer ordered by . [facility] 07/04 08:28 Transferred by ground EMS Note: [place] [id number] Condition: good Instructed on the need for transfer. 08:29 Patient left the ED. vg1 Signatures: Bartolo Mantilla MD MD cha [place], MyKena 2 Antoinette Marrero Victoria, RN RN leighton1 Josie Rios tw5 Rosy Ramirez RN RN ashley1 Addie Baugh mm9 Corrections: (The following items were deleted from the chart) 06:06 06:05 VIS not applicable for this client. ke1 ke 06:05 IV discontinued, 1 : 06:05 Discharged to home ambulatory, 1 ke 06: 06:05 Condition: [place] [id number] 06:05 Discharge instructions given to patient, [facility] ke 06: 05:30 Reassessment: Nurse to Nurse to [facility] at [address]
--- NOTE | 2022-07-03 23:25 | EDPHYS ---
Physician Documentation [facility] Name: Nghia Estrada Age: 21 yrs Sex: Male : 2000 Arrival Date: 07/03/2022 Time: 19:41 Bed 14 Private MD: ED Physician Bartolo Mantilla HPI: 07/03 23:16 This 21 yrs old Male presents to ER via Unassigned with complaints of todd SUICIDAL THOUGHTS. 23:16 The patient presents to the emergency department with anxiety, depression. Onset: The todd symptoms/episode began/occurred just prior to arrival. Past psychiatric history: Prior diagnosis: bipolar disorder, depression, Psychiatric medications include: Lexapro. Associated signs and symptoms: The patient has no apparent associated signs or symptoms. Severity of symptoms: At their worst the symptoms were mild in the emergency department the symptoms are unchanged. The patient has not experienced similar symptoms in the past. Historical: - Allergies: 22:37 No Known Allergies; ke1 - PMHx: 22:35 Bipolar disorder; diabetes mellitus; Hypertensive disorder; ke1 - PSHx: 22:35 None; ke1 - Immunization history:: Adult Immunizations not immunized. - Social history:: Smoking status: Patient reports the use of cigarette tobacco products, smokes one pack cigarettes per day. - Family history:: not pertinent. ROS: 23:16 Constitutional: Negative for fever, chills, and weight loss, Eyes: Negative for injury, todd pain, redness, and discharge, ENT: Negative for injury, pain, and discharge, Neck: Negative for injury, pain, and swelling, Cardiovascular: Negative for chest pain, palpitations, and edema, Respiratory: Negative for shortness of breath, cough, wheezing, and pleuritic chest pain, Abdomen/GI: Negative for abdominal pain, nausea, vomiting, diarrhea, and constipation, Back: Negative for injury and pain, : Negative for injury, bleeding, discharge, and swelling, MS/Extremity: Negative for injury and deformity, Skin: Negative for injury, rash, and discoloration, Neuro: Negative for headache, weakness, numbness, tingling, and seizure, Allergy/Immunology: Negative for hives, rash, and allergies, Endocrine: Negative for neck swelling, polydipsia, polyuria, polyphagia, and marked weight changes, Hematologic/Lymphatic: Negative for swollen nodes, abnormal bleeding, and unusual bruising. 23:16 Psych: Positive for anxiety, depression, suicidal ideation. Exam: 23:16 Constitutional: This is a well developed, well nourished patient who is awake, alert, todd and in no acute distress. Head/Face: Normocephalic, atraumatic. Eyes: Pupils equal round and reactive to light, extra-ocular motions intact. Lids and lashes normal. Conjunctiva and sclera are non-icteric and not injected. Cornea within normal limits. Periorbital areas with no swelling, redness, or edema. ENT: Nares patent. No nasal discharge, no septal abnormalities noted. Tympanic membranes are normal and external auditory canals are clear. Oropharynx with no redness, swelling, or masses, exudates, or evidence of obstruction, uvula midline. Mucous membranes moist. Neck: Trachea midline, no thyromegaly or masses palpated, and no cervical lymphadenopathy. Supple, full range of motion without nuchal rigidity, or vertebral point tenderness. No Meningismus. Chest/axilla: Normal chest wall appearance and motion. Nontender with no deformity. No lesions are appreciated. Cardiovascular: Regular rate and rhythm with a normal S1 and S2. No gallops, murmurs, or rubs. Normal PMI, no JVD. No pulse deficits. Respiratory: Lungs have equal breath sounds bilaterally, clear to auscultation and percussion. No rales, rhonchi or wheezes noted. No increased work of breathing, no retractions or nasal flaring. Abdomen/GI: Soft, non-tender, with normal bowel sounds. No distension or tympany. No guarding or rebound. No evidence of tenderness throughout. Back: No spinal tenderness. No costovertebral tenderness. Full range of motion. Male : Normal genitalia with no discharge or lesions. Skin: Warm, dry with normal turgor. Normal color with no rashes, no lesions, and no evidence of cellulitis. MS/ Extremity: Pulses equal, no cyanosis. Neurovascular intact. Full, normal range of motion. Neuro: Awake and alert, GCS 15, oriented to person, place, time, and situation. Cranial nerves II-XII grossly intact. Motor strength 5/5 in all extremities. Sensory grossly intact. Cerebellar exam normal. Normal gait. Psych: Awake, alert, with orientation to person, place and time. Behavior, mood, and affect are within normal limits. 07/04 00:18 ECG was reviewed by the Attending Physician. [facility] Vital Signs: 07/03 19:52 BP 153 / 97; Pulse 127; Resp 20; Temp 99.6; Pulse Ox 97% ; Weight 122.47 kg; Height 5 ke1 ft. 7 in. (170.18 cm); Pain 0/10; 07/04 05:46 BP 142 / 82; Pulse 86; Resp 16; Temp 98.6(O); Pulse Ox 98% ; ke1 07/03 19:52 Body Mass Index 42.29 (122.47 kg, 170.18 cm) ke1 MDM: 07/03 20:05 Patient medically screened. [facility] 23:19 Differential diagnosis: acute psychotic break, depression. Data reviewed: vital signs, [facility] nurses notes, lab test result(s), EKG. Data interpreted: youth nutritional monitor: not applicable for this patient encounter. rate is 127 beats/min, rhythm is regular, Pulse oximetry: on room air is 97 %. Test interpretation: by ED physician or midlevel provider: ECG. Counseling: I had a detailed discussion with the patient and/or guardian regarding: the historical points, exam findings, and any diagnostic results supporting the discharge/admit diagnosis, lab results, radiology results, the need to transfer to another facility, for higher level of care, [facility] not immediately [place] the required specialist. 07/03 19:45 Order name: Acetaminophen rust 07/03 19:45 Order name: Basic Metabolic Panel rust 07/03 19:45 Order name: CBC with Diff; Complete Time: 21:57 rust 07/03 19:45 Order name: ETOH Level; Complete Time: 21:57 rust 07/03 19:45 Order name: Hepatic Function rust 07/03 19:45 Order name: PT-INR; Complete Time: 21:57 rust 07/03 19:45 Order name: Ptt, Activated; Complete Time: 21:57 rust 07/03 19:45 Order name: Salicylate; Complete Time: 21:57 rust 07/03 19:45 Order name: Urine Drug Screen; Complete Time: 20:17 rust 07/03 19:45 Order name: Urine Dipstick-Ancillary; Complete Time: 20:17 EDMS 07/03 20:46 Order name: SARS RAPID; Complete Time: 21:57 mw2 07/03 19:45 Order name: EKG; Complete Time: 19:46 tw5 07/03 19:45 Order name: EKG - Nurse/Tech; Complete Time: 20:44 tw07/03 19:45 Order name: IV Saline Lock; Complete Time: 20:01 tw5 07/03 19:45 Order name: Labs collected and sent; Complete Time: 20:01 07/03 19:45 Order name: Suicide Screening ([place]); Complete Time: 06:53 07/03 19:45 Order name: Urine Dipstick-Ancillary (obtain specimen); Complete Time: 20:28 07/03 20:21 Order name: Diet Finger Food; Complete Time: 20:22 mm9 07/04 03:08 Order name: Diet Finger Food; Complete Time: 03:08 mm9 EC/12 00:18 Rate is 105 beats/min. Rhythm is regular. QRS [place] is Normal. NH interval is normal. todd QRS interval is normal. QT interval is normal. No Q waves. T waves are Normal. No ST changes noted. Clinical impression: Sinus tachycardia and No evidence of ischemia. Interpreted by me. Reviewed by me. Administered Medications: 07/03 20:38 Drug: NS 0.9% 1000 ml Route: IV; Rate: 1 bolus; Site: right antecubital; ke1 21:15 Follow up: IV Status: Completed infusion ke1 20:38 Drug: Nicotine Patch 21 mg/24 hr 1 patches Route: Transdermal; Site: anterior chest ke1 wall; 07/04 02:44 Drug: Ativan (LORazepam) 2 mg Route: IVP; Site: right antecubital; ke1 03:00 Follow up: Response: RASS: Agitated (+2) ke1 Disposition Summary: 07/03/22 23:24 Transfer Ordered Transfer Location: Psych Facility todd Reason: Higher level of care todd Condition: Stable todd Problem: new todd Symptoms: have improved todd Accepting Physician: PSYCH (07/04/22 08:29) vg1 Diagnosis - Bipolar disorder, unspecified todd - Suicidal ideations todd Forms: - Medication Reconciliation Form todd - SBAR form todd Signatures: Dispatcher [employer] EDBartolo Allison MD MD cha Garcia, Victoria RN RN vg1 Josie Rios tw5 Rosy Ramirez RN RN ke1 Corrections: (The following items were deleted from the chart) 08:29 07/03 23:24 PSYCH MD brooks vg1
[2022-07-04 00:34] LABS: ALT/SGPT 42 U/L (12-78); Albumin 3.6 g/dL (3.4-5.0); Alkaline Phosphatase 87 U/L (45-117); BUN Blood Urea Nitrogen 18 mg/dL (7-18); Bicarbonate 27 mmol/L (21-32); Bilirubin Total 0.3 mg/dL (0.2-1.0); Glomerular Filtration Rate 94 ml/min (=/>90); Glucose Level 178 mg/dL (74-106); Sodium Level 138 mmol/L (136-145)
[2022-07-04 00:35] LABS: AST/SGOT 17 U/L (15-37); Bilirubin Direct < 0.1 mg/dL (0-0.2); Potassium 4.5 mmol/L (3.5-5.1)
[2022-07-04] MEDS ORDERED: LORazepam 2 MG/ML VIAL ONE (02:38)
[2022-07-04 08:38] VITALS: BP 142/82; TEMP 98.6; O2SAT 98
--- NOTE | 2022-07-06 15:13 | EKG ---
Test Date: 2022-07-03 Test Time: 20:40:48 Orthotic Fitter: MUKUND MEASUREMENT RESULTS: Intervals: Rate: 105 [place]: 168 QRSD: 86 QT: 344 QTc: 454 [place]: P: 42 [place]: 168 QRS: 52 T: 25 INTERPRETIVE STATEMENTS: Sinus tachycardia Nonspecific ST and T wave abnormality Abnormal ECG Compared to ECG 05/10/2022 17:18:39 ST (T wave) deviation now present Sinus bradycardia no longer present Sinus arrhythmia no longer present Electronically Signed On 07-06-22 15:09:56 IDENTIFICATION TECHNICIAN by Alok Alves
== END 2022-07-04 08:29 ==
LOC: ER 19:20
DX: R45.851 Suicidal ideations (principal); F31.9 Bipolar disorder, unspecified; F17.210 Nicotine dependence, cigarettes, uncomplicated; Z20.822 Contact with and (suspected) exposure to COVID-19
CPT/HCPCS: 36415; 80048; 80076; 80307; 80320; 80329; 81003; 85025; 85610; 85730; 87811; 93005; 96361; 96374; 99285; J7030

== ENCOUNTER 2023-01-28 15:06 | Emergency (ER) | payer SELFPAY ==
--- OUTSIDE RECORDS SUMMARY | 2023-01-28 15:08 | XMS REPORT | Continuity of Care Document ---
:2000 Author Organization [facility] t Address [address] [place] [address] Care Team Providers Name Role Phone Peña [...] AYLEEN AYLEEN Disease Active [facility] (obstructi (obstructi 1-11 it y of ve sleep ve sleep [...] BMI BMI 00:00: [place] 40.0-49.9 40.0-49.9 00 [facility] Branch Abnormal Abnormal Disease Active 2014-08 Unive [...] Disease Active 2014-08 Unive rs systolic systolic 2- ity of blood blood 00:00: [place] pressure pressure 00 Medica l Branch Allergies, Adverse Reactions, Alerts Allergy Allergy Status Severity Reaction(s) Onset Inactive Treating Comm ents Source Name Type Date Date Clinician No Known Drug Active [facility] NO KNOWN Drug Active [facility] Social History Social Habit Start Date Stop Date Quantity Comments Source Sex [facility]igned [facility] Alcohol intake 2017-07-28 2017-07-28 [facility] 00:00:00 00:00:00 Medical Branch Smoking Status Start Date Stop Date Source Never smoker [facility] Branch Medications Ordered Filled Start Stop Current [...] 00 Medical STRIPS) Branch strip metformin Yes [id number] 750mg Take 1 Univers ER 750 mg 6-05 tablet by ity o f 24 hr 00:00: mouth [place] tablet 00 daily. Medical With Branch dinner Insulin Yes [id number] Taking 1 U nivers [place], 906 injection ity of Disposable, 00:00: daily [place] (SURE-FINE Medical PEN Branch NEEDLES) 31 gauge x 5/16" Ndle loratadine- 2014-08 Yes [id number] 1{tbl} Take 1 Tab Univers pseudoephed 2-01 by mouth ity of rine 00:00: daily. [place] (CLARITIN-D 00 Medical 24 HOUR) Branch 10-240 [...] Date/Time Type Type Clinicians Facility Department ID 2022-07-04 Outpatient [facility] [id number] [place] 02:29:05 [id number] [facility] 2022-05-10 Outpatient [facility] [id number] [place] 20:55:17 [id number] [facility] 2019-11-09 2019-11-09 [facility] Bharati [facility] [id number] [facility] 13:19:00 23:59:00 Encounter Peña ABRAHAM [id number] ity MEDICAL [id number] [facility] [id number] [address] 2019-11-09 2019-11-09 Outpatient [facility] [id number] Univers 00:00:00 00:00:00 PEÑA squires o f [facility] 2019-11-08 2019-11-08 Emergency [facility] [id number] [address] 22:22:00 22:22:00 [facility] 2019-11-08 2019-11-08 Emergency [facility] [id number] [address] 22:22:00 22:22:00 [id number] [facility] Results Test Description Test Time Test Comments Results Result Comments Source Hemoglobin A1c 2019-11-14 06:51:27 Test Item Value Reference Range Interpretation Comme nts Hemoglobin A1c (test code = 5.0 % 4.8-5.9 Non Diabetic 4.8-5.9%Diabetic <7.0% Hemoglobin A1c) Thyroid Stimulating [id number] 04:42:51 Test Item Value Reference Range Interpretation Comments TSH (test code = TSH) 1.030 mIU/mL 0.270-4.200 Lipid [id number] 04:37:04 Test Item Value Reference Range Interpretation Comments Cholesterol Total 126 mg/dL 0-200 RISK OF HE ART (test code = DISEASEPublishe d by Cholesterol Total) [employer] Toña lyte Optimal Borderl ine [...] is LDL/HDL Ratio=L DL Calc/HDL Chol RPR [id number] 14:25:53 Test Item Value Reference Range Interpretation Comments RPR Qual (test code = RPR Qual) Non-Reactive Non-Reactive Reactive Control (test code = Reactive Reactive Control) Weak Reactive Control (test Weak Reactive code = Weak Reactive Control) Non-Reactive Control (test code Non-Reactive = Non-Reactive Control) Lot # (test code = Lot #) [id number] Expiration Dt (test code = 08-22-20 N Expiration Dt) Urinalysis [id number] 06:13:44 Test Item Value Reference Range Interpretation Comments UA WBC (test code = UA WBC) 6-10 0-5 A UA RBC (test code = UA RBC) 0-5 0-5 UA Bacteria (test code = UA Moderate A Bacteria) UA Squam Epithelial (test code = UA 6-10 A Squam Epithelial) UA Mucous (test code = UA Mucous) Moderate A Urine Drug [id number] 05:55:29 Test Item Value Reference Range Interpretation [...] if desired . Urinalysis with Microscopic if [id number] 05:44:35 Test Item Value Reference Range Interpretation [...] Indicated Not Indicated A Ind?) Comprehensive Metabolic [id number] 01:23:11 Test Item Value Reference Range Interpretation [...] A/G 2.5 ratio N Ratio) Comprehensive Metabolic [id number] 01:23:11 Test Item Value Reference Range Interpretation [...] the National Kidney Foundation, http://nkdep.ni h.gov Alcohol [id number] 01:23:11 Test Item Value Reference Range Interpretation Comments Ethanol Level (test <0.00 g/dL 0.00-0.01 Intoxica jessica 0.080 g/dL code = Ethanol or more Level) Ethanol Inst (test <0 N code = Ethanol Inst) Comprehensive Metabolic [id number] 01:23:11 Test Item Value Reference Range Interpretation [...] ag e have not been validated by [facility] MDRD study and should be interpreted wit [...] ag e have not been validated by [facility] MDRD study and should be interpreted wit h caution. eGFR R esult Interpretation: eGFR > or = 60 is in the Normal RangeeGF R < 60 may mean kid sola diseaseeGFR < 1 5 may mean kidney failure Rang es recommended by the National Kidney Foundation, http://nkdep.ni h.gov Complete Blood Count with [id number] 01:06:15 Test Item Value Reference Range Interpretation [...] code = IPF) 0 % N Automated [id number] 01:06:15 Test Item Value Reference Range Interpretation Comments Neutro Auto (test code = Neutro 56.2 % 36.0-70.0 Auto) Lymph Auto (test code = Lymph Auto) 34.2 % 12.0-44.0 Lamb Auto (test code = Lamb Auto) 8.6 % 0.0-11.0 Eos, Auto (test code = Eos, Auto) 0.2 % 0.0-7.0 Basophil Auto (test code = Basophil 0.6 % 0.0-2.0 Auto) Neutro Absolute (test code = Neutro 4.6 x10 1.6-7.4 Absolute) Lymph Absolute (test code = Lymph 2.78 x10 .50-4.60 Absolute) Lamb Absolute (test code = Lamb .70 x10 .00-1.20 Absolute) Eos Absolute (test code = Eos 0.02 x10 0.00-0.74 Absolute) Baso Absolute (test code = Baso 0.05 x10 0.00-0.21 Absolute) IG [id number] 01:06:15 Test Item Value Reference Range Interpretation Comments IG (test code = IG) 0.2 % 0.0-5.0 IG Abs (test code = IG Abs) 0 x10 N
--- NOTE | 2023-01-28 15:59 | RAD REPORT ---
EXAM DESCRIPTION: RAD - Tib Fib Left - 01/28/2023 3:43 pm CLINICAL HISTORY: laceration COMPARISON: No comparisons FINDINGS: No fracture, dislocation or radiopaque foreign body.
[2023-01-28] MEDS ORDERED: LIDOCAINE 1% MPF 5 ML VIAL ONE (16:06)
[2023-01-28] MEDS ORDERED: LIDOCAINE 1% W/EPI 1:100,000 50 ML MDV ONE (16:08)
--- NOTE | 2023-01-28 16:26 | ER ---
Nurse's Notes [facility] Name: Nghia Estrada Age: 22 yrs Sex: Male : 2000 Arrival Date: 01/28/2023 Time: 15:06 Bed 18 Private MD: Diagnosis: Laceration without foreign body of lower leg-left Presentation: 01/28 15:49 Chief complaint: Patient states: LAC TO LATERAL LEFT LOWER LEG 2/2 METAL CONDUIT. ll1 Coronavirus screen: At this time, the client does not indicate any symptoms associated with coronavirus-19. Ebola Screen: No symptoms or risks identified at this time. Initial Sepsis Screen: Does the patient meet any 2 criteria? No. Patient's initial sepsis screen is negative. Does the patient have a suspected source of infection? No. Patient's initial sepsis screen is negative. Risk Assessment: Do you want to hurt yourself or someone else? Patient reports no desire to harm self or others. Onset of symptoms was January 28, 2023 at 14:30. 15:49 Method Of Arrival: Wheelchair ll1 15:49 Acuity: RUBIO 3 ll1 Triage Assessment: 15:51 General: Appears in no apparent distress. Behavior is calm, cooperative, appropriate ll1 for age. Pain: Denies pain. EENT: No deficits noted. Neuro: No deficits noted. Cardiovascular: No deficits noted. Respiratory: No deficits noted. GI: No signs and/or symptoms were reported involving the gastrointestinal system. : No signs and/or symptoms were reported regarding the genitourinary system. Derm: No deficits noted. Musculoskeletal: No deficits noted. Injury Description: Laceration sustained to left leg. Historical: - Home Meds: 15:51 lisinopril Oral [Active]; Seroquel Oral [Active]; ll1 - PMHx: 15:51 Bipolar disorder; diabetes mellitus; Hypertensive disorder; ll1 - Immunization history:: Adult Immunizations. - Social history:: Smoking status: Patient denies any tobacco usage or history of. Screenin:52 [facility] ED Fall Risk Assessment (Adult) History of falling in the last 3 months, ll1 including since admission No falls in past 3 months (0 pts). Abuse screen: Denies threats or abuse. Denies injuries from another. Nutritional screening: No deficits noted. Tuberculosis screening: No symptoms or risk factors identified. Assessment: 15:52 General: PT RETURNED FROM XRAY.. ll1 15:55 General: Appears in no apparent distress. uncomfortable, Behavior is calm, cooperative, eh3 appropriate for age. Pain: Complains of pain in left leg. Neuro: Level of Consciousness is awake, alert, obeys commands, Oriented to person, place, time, situation. Cardiovascular: Capillary refill < 3 seconds Patient's skin is warm and dry. Respiratory: Airway is patent Respiratory effort is even, unlabored. Injury Description: Laceration sustained to lateral aspect of left calf. Vital Signs: 15:49 BP 157 / 89; Pulse 98; Resp 16; Temp 98; Pulse Ox 98% ; Weight 140.61 kg; Height 5 ft. ll1 7 in. ; 15:49 Body Mass Index 48.55 (140.61 kg, 170.18 cm) ll1 ED Course: 15:08 Patient arrived in ED. kj1 15:10 Bartolo Kingsley PA is PHCP. cp 15:10 Emil Quinonez DO is Attending Physician. cp 15:45 XRAY Tib Fib LEFT In Process Unspecified. EDMS 15:51 Triage completed. ll1 15:52 Arm band placed on. ll1 15:52 Patient has correct armband on for positive identification. Bed in low position. Call ll1 light in reach. Side rails up X2. 16:00 Assist provider with laceration repair on lateral aspect of left calf that was between eh3 2.6 to 7.5 cm using marla. Set up tray. Performed by Bartolo SHRESTHA Dressed with band aid, Patient tolerated well. 16:30 Park Wright, RN is Primary Nurse. eh3 16:33 Patient did not have IV access during this emergency room visit. eh3 Administered Medications: 15:55 Drug: Lidocaine-Epinephrine Infiltration -1%: (1:100,000) 10 ml {Note: administered by eh3 FADY Aguiar.} Volume: 20 ml; Route: Infiltration; 16:31 Follow up: Response: No adverse reaction eh3 Medication: 15:52 VIS not applicable for this client. ll1 Outcome: 16:26 Discharge ordered by . cp 16:37 Discharged to home ambulatory. eh3 16:37 Condition: stable 16:37 Discharge instructions given to patient, Instructed on discharge instructions, follow up and referral plans. Demonstrated understanding of instructions, follow-up care. 16:51 Patient left the ED. eh3 Signatures: Dispatcher [employer] EDMS Bartolo Kingsley PA PA cp Jackson, Kandis kj1 Elaine Taylor, APOLINAR RN ll1 Park Wright RN RN eh3 Corrections: (The following items were deleted from the chart) 16:37 16:33 No provider procedures requiring assistance completed. eh3 eh3
--- NOTE | 2023-01-28 16:26 | EDPHYS ---
Physician Documentation [facility] Name: Nghia Estrada Age: 22 yrs Sex: Male : 2000 Arrival Date: 01/28/2023 Time: 15:06 Bed 18 Private MD: ED Physician Emil Quinonez HPI: 01/28 15:30 This 22 yrs old Male presents to ER via Wheelchair with complaints of Leg Injury. cp 15:30 The patient presents with an injury, a laceration. The complaints affect the lower cp aspect of left lower leg. Context: resulted from work equipment, the patient can fully bear weight, the patient is able to ambulate, without difficulty. Onset: The symptoms/episode began/occurred just prior to arrival. Associated signs and symptoms: The patient has no apparent associated signs or symptoms. Treatment prior to arrival includes: pressure dressing. Historical: - Home Meds: 15:51 lisinopril Oral [Active]; Seroquel Oral [Active]; ll1 - PMHx: 15:51 Bipolar disorder; diabetes mellitus; Hypertensive disorder; ll1 - Immunization history:: Adult Immunizations. - Social history:: Smoking status: Patient denies any tobacco usage or history of. ROS: 15:33 Constitutional: Negative for body aches, chills, fever, poor PO intake. cp 15:33 Eyes: Negative for injury, pain, redness, and discharge. cp 15:33 ENT: Negative for drainage from ear(s), ear pain, sore throat, difficulty swallowing, difficulty handling secretions. 15:33 Cardiovascular: Negative for chest pain, palpitations. 15:33 Respiratory: Negative for cough, shortness of breath, wheezing. 15:33 Abdomen/GI: Negative for abdominal pain, nausea, vomiting, and diarrhea. 15:33 Skin: Positive for laceration(s), of the lateral side of left lower leg, injury. 15:33 All other systems are negative. Exam: 15:35 Constitutional: The patient appears in no acute distress, alert, awake, non-toxic, well cp developed, well nourished, obese. 15:35 Head/Face: Normocephalic, atraumatic. cp 15:35 Chest/axilla: Inspection: normal. cp 15:35 Cardiovascular: Rate: normal, Rhythm: regular. 15:35 Respiratory: the patient does not display signs of respiratory distress, Respirations: cp normal, no use of accessory muscles, no retractions. 15:35 Abdomen/GI: Exam negative for discomfort, distension, guarding, Inspection: abdomen appears normal. 15:35 Back: pain, is absent, ROM is normal. 15:35 Musculoskeletal/extremity: ROM: full active range of motion, in the left foot and left leg, Pulses: noted to be 2+ in the left dorsalis pedis artery, the left foot and left leg Sensation intact. 15:35 Skin: injury, laceration(s), the wound is approximately 6 cm(s), of the lower lateral side of left lower leg, that can be described as clean, no foreign body, linear, with mild bleeding. Vital Signs: 15:49 BP 157 / 89; Pulse 98; Resp 16; Temp 98; Pulse Ox 98% ; Weight 140.61 kg; Height 5 ft. ll1 7 in. ; 15:49 Body Mass Index 48.55 (140.61 kg, 170.18 cm) ll1 Laceration: 16:23 Wound Repair of 6cm ( 2.4in ) subcutaneous laceration to lateral left lower leg. Linear cp shaped.. Distal neuro/vascular/tendon intact. Anesthesia: Wound infiltrated with 10 mls of 1% lidocaine w/ Epi. Wound prep: Moderate cleansing by me, Wound irrigation by me. Skin closed with 9 1-0 [place] using staple gun. Dressed with Bacitracin, 4x4's. Patient tolerated well. MDM: 15:54 Patient medically screened. cp 16:00 Differential diagnosis: open fracture, simple laceration, retained foreign body. cp 16:25 Data reviewed: vital signs, nurses notes, radiologic studies, plain films. cp 16:25 Counseling: I had a detailed discussion with the patient and/or guardian regarding: the historical points, exam findings, and any diagnostic results supporting the discharge/admit diagnosis, radiology results, the need for outpatient follow up, a family practitioner, to return to the emergency department if symptoms worsen or persist or if there are any questions or concerns that arise at home. Response to treatment: the patient's symptoms have markedly improved after treatment, and as a result, I will discharge patient. 01/28 15:17 Order name: XRAY Tib Fib LEFT; Complete Time: 16:23 cp 01/28 16:23 Interpretation: Report reviewed. cp 01/28 15:17 Order name: Dressing - Wound; Complete Time: 16:30 cp 01/28 15:17 Order name: Gloves, Sterile; Complete Time: 16:30 cp 01/28 15:17 Order name: Setup Suture Tray; Complete Time: 16:30 cp 01/28 16:24 Order name: Wound dressing; Complete Time: 21:39 cp Administered Medications: 15:55 Drug: Lidocaine-Epinephrine Infiltration -1%: (1:100,000) 10 ml {Note: administered by eh3 FADY Aguiar.} Volume: 20 ml; Route: Infiltration; 16:31 Follow up: Response: No adverse reaction [facility] Disposition: 16:43 Co-signature as Attending Physician, Emil Quinonez DO I was immediately available on-site ms3 in the Emergency Department for consultation in the care of the patient. Disposition Summary: 01/28/23 16:26 Discharge Ordered Location: Home cp Problem: new cp Symptoms: have improved cp Condition: Stable cp Diagnosis - Laceration without foreign body of lower leg - left cp Followup: cp - With: Private Physician - When: 10 - 14 days - Reason: Staple/Suture removal Discharge Instructions: - Discharge Summary Sheet cp - Laceration Care, Adult cp - Sutures, [place], or Adhesive Wound Closure cp Forms: - Medication Reconciliation Form cp - Thank You Letter cp - Antibiotic Education cp - Prescription Opioid Use cp Signatures: Dispatcher [employer] EDMS Bartolo Kingsley PA PA cp Lewis, Lynsay, RN RN 1 Emil Quinonez DO DO ms3 Park Wright RN RN 3
[2023-01-28 17:58] VITALS: BP 157/89; TEMP 98; O2SAT 98
== END 2023-01-28 16:51 | disposition home or self-care (01) ==
LOC: ER 15:06
PROC: 0HQLXZZ Repair Left Lower Leg Skin, External Approach (ICD-10-PCS; principal; 2023-01-28)
DX: S81.812A Laceration without foreign body, left lower leg, initial encounter (principal)
CPT/HCPCS: 99284; J2001

== ENCOUNTER 2023-02-05 13:39 | Emergency (ER) | payer OTHER, SELFPAY ==
--- OUTSIDE RECORDS SUMMARY | 2023-02-05 13:42 | XMS REPORT | Continuity of Care Document ---
:2000 Author Organization [facility] t Address [address] [place] [address] Care Team Providers Name Role Phone Peña [...] BMI BMI 00:00: [place] 40.0-49.9 40.0-49.9 00 [facility] Branch Abnormal Abnormal Disease Active 2014-08 Unive [...] Date Date Clinician No Known Drug Active [facility] NO KNOWN Drug Active [facility] Social History Social Habit Start Date Stop Date Quantity Comments Source Sex Assigned [facility] Medical Branch Alcohol intake 2017-07-28 2017-07-28 [facility] 00:00:00 00:00:00 Medical Branch Smoking Status Start Date Stop Date Source Never smoker [facility] Branch Medications Ordered Filled Start Stop [...] 00 Medical STRIPS) Branch strip metformin Yes [id number] 750mg Take 1 [facility] ER 750 mg 6-05 tablet by ity o f 24 hr 00:00: mouth [place] tablet 00 daily. Medical With Branch dinner Insulin Yes [id number] Taking 1 U nivers [place], 906 injection ity of Disposable, 00:00: daily [place] (SURE-FINE Medical PEN Branch NEEDLES) 31 gauge x 5/16" Ndle loratadine- 2014-08 Yes [id number] 1{tbl} Take 1 Tab Univers pseudoephed 2-01 by mouth ity of rine 00:00: daily. [place] (CLARITIN-D 00 Medical 24 HOUR) Branch 10-240 [...] Type Clinicians Facility Department ID 2022-07-04 Outpatient [facility] [id number] [place] 02:29:05 [id number] [facility] 2022-05-10 Outpatient [facility] [id number] [place] 20:55:17 [id number] [facility] 2019-11-09 2019-11-09 [facility] Bharati [facility] [id number] [facility] 13:19:00 23:59:00 Encounter Peña ABRAHAM [id number] ity MEDICAL [id number] [facility] [id number] [address] 2019-11-09 2019-11-09 Outpatient BHARATI [facility] [id number] Univers 00:00:00 00:00:00 PEÑA squires o f [facility] 2019-11-08 2019-11-08 Emergency [facility] [id number] [address] 22:22:00 22:22:00 [facility] 2019-11-08 2019-11-08 Emergency [facility] [id number] [address] 22:22:00 22:22:00 [id number] Ignacio [facility] Results Test Description Test Time Test Comments Results Result Comments Source Hemoglobin A1c 2019-11-14 06:51:27 Test Item Value Reference Range Interpretation Comme nts Hemoglobin A1c (test code = 5.0 % 4.8-5.9 Non Diabetic 4.8-5.9%Diabetic <7.0% Hemoglobin A1c) Thyroid Stimulating [id number] 04:42:51 Test Item Value Reference Range Interpretation Comments TSH (test code = TSH) 1.030 mIU/mL 0.270-4.200 Lipid [id number] 04:37:04 Test Item Value Reference Range Interpretation Comments Cholesterol Total 126 mg/dL 0-200 RISK OF HE ART (test code = DISEASEPublishe d by Cholesterol Total) [place] [employer] Toña lyte Optimal Borderl ine [...] is LDL/HDL Ratio=L DL Calc/HDL Chol RPR [id number] 14:25:53 Test Item Value Reference Range Interpretation Comments RPR Qual (test code = RPR Qual) Non-Reactive Non-Reactive Reactive Control (test code = Reactive Reactive Control) Weak Reactive Control (test Weak Reactive code = Weak Reactive Control) Non-Reactive Control (test code Non-Reactive = Non-Reactive Control) Lot # (test code = Lot #) [id number] Expiration Dt (test code = 08-22-20 N Expiration Dt) Urinalysis [id number] 06:13:44 Test Item Value Reference Range Interpretation Comments UA WBC (test code = UA WBC) 6-10 0-5 A UA RBC (test code = UA RBC) 0-5 0-5 UA Bacteria (test code = UA Moderate A Bacteria) UA Squam Epithelial (test code = UA 6-10 A Squam Epithelial) UA Mucous (test code = UA Mucous) Moderate A Urine Drug [id number] 05:55:29 Test Item Value Reference Range Interpretation [...] if desired . Urinalysis with Microscopic if [id number] 05:44:35 Test Item Value Reference Range Interpretation [...] Indicated Not Indicated A Ind?) Comprehensive Metabolic [id number] 01:23:11 Test Item Value Reference Range Interpretation [...] A/G 2.5 ratio N Ratio) Comprehensive Metabolic [id number] 01:23:11 Test Item Value Reference Range Interpretation [...] the National Kidney Foundation, http://nkdep.ni h.gov Alcohol [id number] 01:23:11 Test Item Value Reference Range Interpretation Comments Ethanol Level (test <0.00 g/dL 0.00-0.01 Intoxica jessica 0.080 g/dL code = Ethanol or more Level) Ethanol Inst (test <0 N code = Ethanol Inst) Comprehensive Metabolic [id number] 01:23:11 Test Item Value Reference Range Interpretation [...] ag e have not been validated by [facility] MDRD study and should be interpreted wit [...] ag e have not been validated by [facility] MDRD study and should be interpreted wit h caution. eGFR R esult Interpretation: eGFR > or = 60 is in the Normal RangeeGF R < 60 may mean kid sola diseaseeGFR < 1 5 may mean kidney failure Rang es recommended by the National Kidney Foundation, http://nkdep.ni h.gov Complete Blood Count with [id number] 01:06:15 Test Item Value Reference Range Interpretation [...] code = IPF) 0 % N Automated [id number] 01:06:15 Test Item Value Reference Range Interpretation Comments Neutro Auto (test code = Neutro 56.2 % 36.0-70.0 Auto) Lymph Auto (test code = Lymph Auto) 34.2 % 12.0-44.0 Grayson Auto (test code = Grayson Auto) 8.6 % 0.0-11.0 Eos, Auto (test code = Eos, Auto) 0.2 % 0.0-7.0 Basophil Auto (test code = Basophil 0.6 % 0.0-2.0 Auto) Neutro Absolute (test code = Neutro 4.6 x10 1.6-7.4 Absolute) Lymph Absolute (test code = Lymph 2.78 x10 .50-4.60 Absolute) Grayson Absolute (test code = Grayson .70 x10 .00-1.20 Absolute) Eos Absolute (test code = Eos 0.02 x10 0.00-0.74 Absolute) Baso Absolute (test code = Baso 0.05 x10 0.00-0.21 Absolute) IG [id number] 01:06:15 Test Item Value Reference Range Interpretation Comments IG (test code = IG) 0.2 % 0.0-5.0 IG Abs (test code = IG Abs) 0 x10 N
--- NOTE | 2023-02-05 13:51 | EDPHYS ---
Physician Documentation [facility] Name: Nghia Estrada Age: 22 yrs Sex: Male : 2000 Arrival Date: 02/05/2023 Time: 13:39 Bed IW1 Private MD: ED Physician Ignacio Rodas HPI: 02/05 13:51 This 22 yrs old Male presents to ER via Ambulatory with complaints of Staple Removal. jr11 13:51 wound healing well per pt, no complaints, 9 marla to lower leg. jr11 Historical: - Allergies: 13:48 No Known Allergies; ld1 - PMHx: 13:48 Bipolar disorder; diabetes mellitus; Hypertensive disorder; ld1 - Immunization history:: Adult Immunizations up to date, Client reports receiving the 2nd dose of the Covid vaccine. - Social history:: Smoking status: Patient denies any tobacco usage or history of. Patient/guardian denies using alcohol. ROS: 13:51 All other systems are negative. jr11 Exam: 13:51 Skin: Lower extremity with laceration, clean dry intact, [address] clean dry jr11 intact.. Vital Signs: 13:48 BP 129 / 86; Pulse 91; Resp 18; Temp 98.1(O); Pulse Ox 100% on R/A; Weight 95.25 kg; ld1 Height 5 ft. 8 in. ; Pain 0/10; 13:48 Body Mass Index 31.93 (95.25 kg, 172.72 cm) ld1 13:48 Pain Scale: Adult ld1 MDM: 13:50 Patient medically screened. jr11 13:51 Data reviewed: vital signs, nurses notes. ED course: Patient with laceration, wound jr11 looks great, will remove marla follow-up as needed.. Administered Medications: No medications were administered Disposition Summary: 02/05/23 13:50 Discharge Ordered Location: Home jr11 Condition: Fair jr11 Diagnosis - staple removal jr11 Discharge Instructions: - Discharge Summary Sheet jr11 - Suture Removal, Care After jr11 Forms: - Medication Reconciliation Form jr11 - Thank You Letter jr11 - Antibiotic Education jr11 - Prescription Opioid Use jr11 Signatures: Connie Quinonez RN RN ld1 Ignacio Rodas MD MD jr11 Corrections: (The following items were deleted from the chart) 13:49 13:48 Allergies: Aspirin; ld1 ld1
--- NOTE | 2023-02-05 13:51 | ER ---
Nurse's Notes [facility] Name: Nghia Estrada Age: 22 yrs Sex: Male : 2000 Arrival Date: 02/05/2023 Time: 13:39 Bed IW1 Private MD: Diagnosis: staple removal Presentation: 02/05 13:48 Chief complaint: Patient states: Staple removal. Coronavirus screen: At this time, the ld1 client does not indicate any symptoms associated with coronavirus-19. Ebola Screen: No symptoms or risks identified at this time. Initial Sepsis Screen: Does the patient meet any 2 criteria? No. Patient's initial sepsis screen is negative. Does the patient have a suspected source of infection? No. Patient's initial sepsis screen is negative. Risk Assessment: Do you want to hurt yourself or someone else? Patient reports no desire to harm self or others. Onset of symptoms was February 05, 2023. 13:48 Method Of Arrival: Ambulatory ld1 13:48 Acuity: RUBIO 5 ld1 Triage Assessment: 13:48 General: Appears in no apparent distress. comfortable, Behavior is calm, cooperative, ld1 appropriate for age. Pain: Denies pain. EENT: No signs and/or symptoms were reported regarding the EENT system. Neuro: Level of Consciousness is awake, alert, obeys commands, Oriented to person, place, time, situation. Cardiovascular: No deficits noted. Respiratory: No deficits noted. GI: No deficits noted. : No deficits noted. Derm: No deficits noted. Musculoskeletal: No deficits noted. Historical: - Allergies: 13:48 No Known Allergies; ld1 - PMHx: 13:48 Bipolar disorder; diabetes mellitus; Hypertensive disorder; ld1 - Immunization history:: Adult Immunizations up to date, Client reports receiving the 2nd dose of the Covid vaccine. - Social history:: Smoking status: Patient denies any tobacco usage or history of. Patient/guardian denies using alcohol. Screenin:49 [facility] ED Fall Risk Assessment (Adult) History of falling in the last 3 months, ld1 including since admission No falls in past 3 months (0 pts). Abuse screen: Denies threats or abuse. Denies injuries from another. Nutritional screening: No deficits noted. Tuberculosis screening: No symptoms or risk factors identified. Assessment: 13:49 Reassessment: See triage assessment. ld1 Vital Signs: 13:48 BP 129 / 86; Pulse 91; Resp 18; Temp 98.1(O); Pulse Ox 100% on R/A; Weight 95.25 kg; ld1 Height 5 ft. 8 in. ; Pain 0/10; 13:48 Body Mass Index 31.93 (95.25 kg, 172.72 cm) ld1 13:48 Pain Scale: Adult ld1 ED Course: 13:42 Patient arrived in ED. mr 13:44 Ignacio Rodas MD is Attending Physician. jr11 13:48 Triage completed. ld1 13:48 Arm band placed on right wrist. ld1 13:49 Patient has correct armband on for positive identification. Pulse ox on. NIBP on. ld1 13:49 No provider procedures requiring assistance completed. Patient did not have IV access ld1 during this emergency room visit. 13:58 Marylu removed from L ankle wound. Tolerated well by patient. No active bleeding. Adam ml4 wrap applied. Ambulatory w/ steady gait. Administered Medications: No medications were administered Medication: 13:49 VIS not applicable for this client. ld1 Outcome: 13:49 Condition: stable ld1 13:50 Discharge ordered by . jr11 13:59 Discharged to home ambulatory. ml4 13:59 Discharge instructions given to patient, Instructed on discharge instructions, Demonstrated understanding of instructions. 14:01 Patient left the ED. ml4 Signatures: Corie Pagan mr QuinonezConnie, RN RN ld1 Ignacio Rodas MD MD jr11 APOLINAR PatrickIII, Librado RN RN ml4 Corrections: (The following items were deleted from the chart) 13:49 13:48 Allergies: Aspirin; ld1 ld1
[2023-02-05 14:57] VITALS: BP 129/86; TEMP 98.1; O2SAT 100
== END 2023-02-05 14:01 | disposition home or self-care (01) ==
LOC: ER 13:39
DX: Z48.02 Encounter for removal of sutures (principal)
CPT/HCPCS: 99283

== ENCOUNTER 2024-06-21 21:25 | Emergency (ER) | payer OTHER ==
--- OUTSIDE RECORDS SUMMARY | 2024-06-21 21:28 | XMS REPORT | Continuity of Care Document ---
Author Name Unknown Address [address] [place] [address] [facility] thconnect Address 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 Disease Active 09-02 00:00: 00 [facility] acute hospital AYLEEN (obstructi ve sleep apnea) AYLEEN (obstructi ve sleep apnea) Disease Active 09-02 00:00: 00 [facility] acute hospital History of depression History of depression Disease Active 09-02 00:00: 00 [facility] acute hospital 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 08-27 00:00: 00 [facility] acute hospital Obesity, morbid, BMI 40.0-49.9 Obesity, morbid, BMI 40.0-49.9 Disease Active 2014-08 00:00: 00 [facility] acute hospital Abnormal weight gain Abnormal weight gain Disease Active 2014-08 00:00: 00 [facility] acute hospital Type 2 diabetes mellitus without complicati on Type 2 diabetes mellitus without complicati on Disease Active 2014-08 00:00: 00 [facility] acute hospital Acanthosis nigricans Acanthosis nigricans Disease Active 2014-08 00:00: 00 [facility] acute hospital Elevated systolic blood pressure Elevated systolic blood pressure Disease Active 2014-08 00:00: 00 [facility] acute hospital Allergies, Adverse Reactions, Alerts Allergy Name Allergy Type Status Severity Reaction(s) Onset Date Inactive Date Treating Clinician Comments Source No Known Allergie s Drug Active [facility] NO KNOWN ALLERGIE S Drug Class Active General acute hospital Social History Social Habit Start Date Stop Date Quantity Comments Source Sex Assigned At [facility] Alcohol intake 2017-07-28 00:00:00 2017-07-28 00:00:00 [facility] Smoking Status Start Date Stop Date Source Never smoker [facility] Medications Ordered Medication Name Filled Medication Name Start Date Stop Date Current Medication? Ordering Clinician Indication Dosage Frequency Signature (SIG) Comments Components Source Lamotrigine (LAMICTAL ODT) 50 mg tablet 2016-08 13:15: 05 Yes 50mg Take 50 mg by mouth daily. [facility] acute hospital blood sugar diagnostic (FREESTYLE LITE STRIPS) strip 01-25 00:00: 00 Yes Checking 6 times daily [facility] acute hospital metformin ER 750 mg 24 hr tablet 01-25 00:00: 00 Yes [id number] 750mg Take 1 tablet by mouth daily. With dinner [facility] acute hospital Insulin [place], Disposable, (SURE-FINE PEN NEEDLES) 31 gauge x 5/16" Ndle 04-28 00:00: 00 Yes [id number] Taking 1 injection daily [facility] acute hospital loratadine- pseudoephed rine (CLARITIN-D 24 HOUR) 10-240 mg per 24 hr tablet 2014-08 00:00: 00 Yes [id number] 1{tbl} Take 1 Tab by mouth daily. [facility] acute hospital Vital Signs Vital Name Observation Time Observation Value Comments S jennifer Height/Length Measured 2021-09-09 09:51:09 172.7 cm Weight [...] 09:37:48 172.7 cm Height/Length Measured 2019-11-08 22:41:31 Encounters Start Date/Time End Date/Time Encounter Type Admission Type Attending [facility] Care Department Encounter ID Source 2022-07-04 02:29:05 Outpatient [facility] [id number] [facility] 2022-05-10 20:55:17 Outpatient [facility] [id number] [facility] 2019-11-09 13:19:00 2019-11-09 23:59:00 Hospital Encounter Christina Calabresemerissa [facility] [id number] General acute hospital 2019-11-09 00:00:00 2019-11-09 00:00:00 Outpatient R PEÑA CALABRESE [facility] [id number] General acute hospital 2019-11-08 22:22:00 2019-11-08 22:22:00 Emergency [facility] [id number] [facility] 2019-11-08 22:22:00 2019-11-08 22:22:00 Emergency [facility] [id number] [facility] Results Test Description Test Time Test Comments Results Result Co mments Source Thyroid Stimulating [id number] 04:42:51* Test Item Value Reference Range Interpretation Comme nts TSH (test code = TSH) 1.030 mIU/mL 0.270-4.200 Lipid [id number] 04:37:04* Test Item Value Reference Range Interpretation Comme nts Cholesterol Total (test code = Cholesterol Total) 126 mg/dL 0-200 RISK OF HEART DISEASEPublished by [place] Heart Association Analyte Optimal Borderline Increased RiskCHOL <200 200-239 >240TRIG <150 150-199 >200HDL Male >60 <40HDL Female >60 <50LDL <100 130-159 >160LDL Near optimal is 100-129 Triglycerides (test code = Triglycerides) 47 mg/dL 9-200 HDL (test code = HDL) 43 mg/dL 40-60 LDL (test code = LDL) 74 mg/dL 0-130 The equation being used in this calculation is LDL = (Chol - HDL) - (Trig / 5) VLDL (test code = VLDL) 9 mg/dL 5-40 The equation zane ng used in this calculation is VLDL = Trig / 5 Chol/HDL (test code = Chol/HDL) 2.9 ratio 0.0-5.0 LDL/HDL Ratio (test code = LDL/HDL Ratio) 2 N The equati on being used in this calculation is LDL/HDL Ratio=LDL Calc/HDL Chol RPR [id number] 14:25:53* Test Item Value Reference Range Interpretation Comme nts RPR Qual (test code = RPR Qual) Non-Reactive Non-Reactive Reactive Control (test code = Reactive Control) Reactive Weak Reactive Control (test code = Weak Reactive Control) Weak Reactive Non-Reactive Control (test c ode = Non-Reactive Control) Non-Reactive Lot # (test code = Lot #) [id number] N Expiration Dt (test code = Expiration Dt) 08-22-20 N Urinalysis [id number] 06:13:44* Test Item Value Reference Range Interpretation Comme nts UA WBC (test code = UA WBC) 6-10 0-5 A UA RBC (test code = UA RBC) 0-5 0-5 UA Bacteria (test code = UA Bacteria) Moderate A UA Squam Epithelial (test co de = UA Squam Epithelial) 6-10 A UA Mucous (test code = UA Mucous) Moderate A Urine Drug [id number] 05:55:29* Test Item Value Reference Range Interpretation Comme nts Amphetamine Screen Ur (test code = Amphetamine Screen Ur) Negative Negative Barbiturate Screen Ur (test code = Barbiturate Screen Ur) Negative Negative Benzodiazepines Ur (test code = Benzodiazepines Ur) Negative Negative Cocaine Screen Ur (test code = Cocaine Screen Ur) Negative Negative U Methadone Scr (test code = U Methadone Scr) Negative Negative Opiate Screen Ur (test code = Opiate Screen Ur) Negative Negative U PCP Scrn (test code = U PCP Scrn) Negative Negative Cannabinoid Screen Ur (test code = Cannabinoid Screen Ur) POSITIVE Negative A U TCA (test code = U TCA) Negative Negative The results of a ll drug screen tests are only preliminary. Clinical consideration and professional judgment should be applied to any drug of abuse test result, particularly when preliminary positive results are obtained. Please order a separate confirmatory test if desired. Urinalysis with Microscopic if [id number] 05:44:35* Test Item Value Reference Range Interpretation Comme nts UA Color (test code = UA Color) YELLO Yellow UA Appear (test code = UA Appear) CLEAR Clear UA pH (test code = UA pH) 5.5 N UA Spec Grav (test code = UA Spec Grav) 1.030 1.001-1.035 UA Glucose (test code = UA Glucose) NEG Negative UA Ketones (test code = UA Ketones) NEG Negative UA Blood (test code = UA Blood) NEG Negative UA Protein (test code = UA Protein) 25 mg/dL Negative A UA Bili (test code = UA Bili) 1 mg/dL Negative A UA Urobilinogen (test code = UA Urobilinogen) .2 mg/dL >0.2 UA Nitrite (test code = UA Nitrite) NEG Negative UA Leuk Est (test code = UA Leuk Est) NEG Negative UA Micro Ind? (test code = U A Micro Ind?) Indicated Not Indicated A Comprehensive Metabolic [id number] 01:23:11* Test Item Value Reference Range Interpretation Comme nts Sodium Level (test code = So dium Level) 142.0 mmol/L 135.0-145.0 Potassium Level (test code = Potassium Level) 3.5 mmol/L 3.5-5.1 Chloride Level (test code = Chloride Level) 104 mmol/L 98-105 CO2 (test code = CO2) 23 mmol/L 22-29 Anion Gap (test code = Anion Gap) 15 mmol/L 7-16 BUN (test code = BUN) 15.90 mg/dL 6.00-20.00 Creatinine Level (test code = Creatinine Level) 1.00 mg/dL 0.70-1.20 BUN/Creat Ratio (test code = BUN/Creat Ratio) 16 N Glucose Level (test code = Glucose Level) 78 mg/dL 70-115 Calcium Level (test code = Calcium Level) 9.0 mg/dL 8.3-10.5 Alk Phos (test code = Alk Phos) 43 U/L 40-129 Bilirubin Total (test code = Bilirubin Total) 0.5 mg/dL 0.1-0.9 Albumin Level (test code = Albumin Level) 4.3 g/dL 3.5-5.2 Protein Total (test code = Protein Total) 6.0 g/dL 6.4-8.3 L ALT (test code = ALT) 10 U/L 1-41 AST (test code = AST) 14 U/L 1-40 Globulin (test code = Globulin) 1.7 g/dL 2.9-3.1 L A/G Ratio (test code = A/G Ratio) 2.5 ratio N Comprehensive Metabolic [id number] 01:23:11* Test Item Value Reference Range Interpretation Comme nts Sodium Level (test code = Sodium Level) 142.0 mmol/L 135.0-145.0 Potassium Level (test code = Potassium Level) 3.5 mmol/L 3.5-5.1 Chloride Level (test code = Chloride Level) 104 mmol/L 98-105 CO2 (test code = CO2) 23 mmol/L 22-29 Anion Gap (test code = Anion Gap) 15 mmol/L 7-16 BUN (test code = BUN) 15.90 mg/dL 6.00-20.00 Creatinine Level (test code = Creatinine Level) 1.00 mg/dL 0.70-1.20 BUN/Creat Ratio (test code = BUN/Creat Ratio) 16 N Glucose Level (test code = Glucose Level) 78 mg/dL 70-115 Calcium Level (test code = Calcium Level) 9.0 mg/dL 8.3-10.5 Alk Phos (test code = Alk Phos) 43 U/L 40-129 Bilirubin Total (test code = Bilirubin Total) 0.5 mg/dL 0.1-0.9 Albumin Level (test code = Albumin Level) 4.3 g/dL 3.5-5.2 Protein Total (test code = Protein Total) 6.0 g/dL 6.4-8.3 L ALT (test code = ALT) 10 U/L 1-41 AST (test code = AST) 14 U/L 1-40 Globulin (test code = Globulin) 1.7 g/dL 2.9-3.1 L A/G Ratio (test code = A/G Ratio) 2.5 ratio N eGFR AA (test code = eGFR AA) >60 mL/min/1.73 m2 N eGFR (estimated Glomerular Filtration Rate) is an estimated value, calculated from the patient's serum creatinine using the MDRD equation. It is NOT the patient's actual GFR. The eGFR provides a more clinically useful measure of kidney disease than serum creatinine alone.This calculation takes sex and race into account, if the information is provided. If the race is not provided, and the patient is -[place] Citizen, multiply by 1.212. If sex is not provided, and the patient is female, multiply by 0.742. Results for patients <18 years of age have not been validated by the MDRD study and should be interpreted with caution. eGFR Result Interpretation:eGFR > or = 60 is in the Normal RangeeGFR < 60 may mean kidney diseaseeGFR < 15 may mean kidney failure Ranges recommended by the National Kidney Foundation, http://nkdep.nih.gov Alcohol [id number] 01:23:11* Test Item Value Reference Range Interpretation Comme nts Ethanol Level (test code = Ethanol Level) <0.00 g/dL 0.00-0.01 Intoxicated 0.08 0 g/dL or more Ethanol Inst (test code = Ethanol Inst) <0 N Comprehensive Metabolic [id number] 01:23:11* Test Item Value Reference Range Interpretation Comme nts Sodium Level (test code = Sodium Level) 142.0 mmol/L 135.0-145.0 Potassium Level (test code = Potassium Level) 3.5 mmol/L 3.5-5.1 Chloride Level (test code = Chloride Level) 104 mmol/L 98-105 CO2 (test code = CO2) 23 mmol/L 22-29 Anion Gap (test code = Anion Gap) 15 mmol/L 7-16 BUN (test code = BUN) 15.90 mg/dL 6.00-20.00 Creatinine Level (test code = Creatinine Level) 1.00 mg/dL 0.70-1.20 BUN/Creat Ratio (test code = BUN/Creat Ratio) 16 N Glucose Level (test code = Glucose Level) 78 mg/dL 70-115 Calcium Level (test code = Calcium Level) 9.0 mg/dL 8.3-10.5 Alk Phos (test code = Alk Phos) 43 U/L 40-129 Bilirubin Total (test code = Bilirubin Total) 0.5 mg/dL 0.1-0.9 Albumin Level (test code = Albumin Level) 4.3 g/dL 3.5-5.2 Protein Total (test code = Protein Total) 6.0 g/dL 6.4-8.3 L ALT (test code = ALT) 10 U/L 1-41 AST (test code = AST) 14 U/L 1-40 Globulin (test code = Globulin) 1.7 g/dL 2.9-3.1 L A/G Ratio (test code = A/G Ratio) 2.5 ratio N eGFR AA (test code = eGFR AA) >60 mL/min/1.73 m2 N eGFR (estimated Glomerular Filtration Rate) is an estimated value, calculated from the patient's serum creatinine using the MDRD equation. It is NOT the patient's actual GFR. The eGFR provides a more clinically useful measure of kidney disease than serum creatinine alone.This calculation takes sex and race into account, if the information is provided. If the race is not provided, and the patient is -[place], multiply by 1.212. If sex is not provided, and the patient is female, multiply by 0.742. Results for patients <18 years of age have not been validated by the MDRD study and should be interpreted with caution. eGFR Result Interpretation:eGFR > or = 60 is in the Normal RangeeGFR < 60 may mean kidney diseaseeGFR < 15 may mean kidney failure Ranges recommended by the National Kidney Foundation, http://nkdep.nih.gov eGFR Non-AA (test code = eGFR Non-AA) >60.00 mL/min/1.73 m2 N eGFR (estimated Glomerular Filtration Rate) is an estimated value, calculated from the patient's serum creatinine using the MDRD equation. It is NOT the patient's actual GFR. The eGFR provides a more clinically useful measure of kidney disease than serum creatinine alone.This calculation takes sex and race into account, if the information is provided. If the race is not provided, and the patient is -[place], multiply by 1.212. If sex is not provided, and the patient is female, multiply by 0.742. Results for patients <18 years of age have not been validated by the MDRD study and should be interpreted with caution. eGFR Result Interpretation:eGFR > or = 60 is in the Normal RangeeGFR < 60 may mean kidney diseaseeGFR < 15 may mean kidney failure Ranges recommended by the National Kidney Foundation, http://nkdep.nih.gov Complete Blood Count with [id number] 01:06:15* Test Item Value Reference Range Interpretation Comme nts WBC (test code = WBC) 8.1 x10 4.4-10.5 RBC (test code = RBC) 4.32 x10 4.10-5.70 Hgb (test code = Hgb) 13.1 g/dL 13.4-17.4 L Hct (test code = Hct) 39.5 % 38.7-52.0 MCV (test code = MCV) 91.40 fL 80.00-100.00 MCHC (test code = MCHC) 33.20 g/dL 32.00-37.50 MCH (test code = MCH) 30.3 pg 27.0-32.5 RDW CV (test code = RDW CV) 11.8 % 11.5-14.5 Platelets (test code = Platelets) 252.0 x10 140.0-440.0 MPV (test code = MPV) 10.1 fL N Slide Review (test code = Slide Review) Auto Auto Result crea jessica by GL_SJM_SLIDE_REV_AUTO nRBC (test code = nRBC) 0 N NRBC Abs (test code = NRBC Abs) 0.00 x10 N IPF (test code = IPF) 0 % N Automated [id number] 01:06:15* Test Item Value Reference Range Interpretation Comme nts Neutro Auto (test code = Rai tro Auto) 56.2 % 36.0-70.0 Lymph Auto (test code = Lymph Auto) 34.2 % 12.0-44.0 Kern Auto (test code = Kern Auto) 8.6 % 0.0-11.0 Eos, Auto (test code = Eos, Auto) 0.2 % 0.0-7.0 Basophil Auto (test code = B asophil Auto) 0.6 % 0.0-2.0 Neutro Absolute (test code = Neutro Absolute) 4.6 x10 1.6-7.4 Lymph Absolute (test code = Lymph Absolute) 2.78 x10 .50-4.60 Kern Absolute (test code = M kriss Absolute) .70 x10 .00-1.20 Eos Absolute (test code = Eo s Absolute) 0.02 x10 0.00-0.74 Baso Absolute (test code = B aso Absolute) 0.05 x10 0.00-0.21 IG [id number] 01:06:15* Test Item Value Reference Range Interpretation Comme nts IG (test code = IG) 0.2 % 0.0-5.0 IG Abs (test code = IG Abs) 0 x10 N
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
[2024-06-21 23:52] VITALS: BP 144/86; TEMP 98.3; O2SAT 97
== END 2024-06-21 23:01 | disposition home or self-care (01) ==
LOC: ER 21:25
DX: M54.6 Pain in thoracic spine (principal); V49.40XA Driver injured in collision with unspecified motor vehicles in traffic accident, initial encounter; F17.210 Nicotine dependence, cigarettes, uncomplicated
CPT/HCPCS: 71250; 74176; 99284

== ENCOUNTER 2024-06-24 17:56 | Emergency (ER) | payer OTHER ==
--- OUTSIDE RECORDS SUMMARY | 2024-06-24 17:59 | XMS REPORT | Continuity of Care Document ---
Author Name Unknown Address [address] [place] [address] [facility] thconnect Address 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 Disease Active 09-02 00:00: 00 [facility] AYLEEN (obstructi ve sleep apnea) AYLEEN (obstructi ve sleep apnea) Disease Active 09-02 00:00: 00 [facility] History of depression History of depression Disease Active 09-02 00:00: 00 [facility] 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 08-27 00:00: 00 [facility] Obesity, morbid, BMI 40.0-49.9 Obesity, morbid, BMI 40.0-49.9 Disease Active 2014-08 00:00: 00 [facility] Abnormal weight gain Abnormal weight gain Disease Active 2014-08 00:00: 00 [facility] Type 2 diabetes mellitus without complicati on Type 2 diabetes mellitus without complicati on Disease Active 2014-08 00:00: 00 [facility] Acanthosis nigricans Acanthosis nigricans Disease Active 2014-08 00:00: 00 [facility] Elevated systolic blood pressure Elevated systolic blood pressure Disease Active 2014-08 00:00: 00 [facility] Allergies, Adverse Reactions, Alerts Allergy Name Allergy Type Status Severity Reaction(s) Onset Date Inactive Date Treating Clinician Comments Source No Known Allergie s Drug Active [facility] NO KNOWN ALLERGIE S Drug Class Active [facility] Social History Social Habit Start Date Stop Date Quantity Comments Source Sex Assigned At [facility] Alcohol intake 2017-07-28 00:00:00 2017-07-28 00:00:00 [facility] Smoking Status Start Date Stop Date Source Never smoker [facility] Medications Ordered Medication Name Filled Medication Name Start Date Stop Date Current Medication? Ordering Clinician Indication Dosage Frequency Signature (SIG) Comments Components Source Lamotrigine (LAMICTAL ODT) 50 mg tablet 2016-08 13:15: 05 Yes 50mg Take 50 mg by mouth daily. [facility] blood sugar diagnostic (FREESTYLE LITE STRIPS) strip 01-25 00:00: 00 Yes Checking 6 times daily [facility] metformin ER 750 mg 24 hr tablet 01-25 00:00: 00 Yes [id number] 750mg Take 1 tablet by mouth daily. With dinner [facility] Insulin [place], Disposable, (SURE-FINE PEN NEEDLES) 31 gauge x 5/16" Ndle 04-28 00:00: 00 Yes [id number] Taking 1 injection daily [facility] loratadine- pseudoephed rine (CLARITIN-D 24 HOUR) 10-240 mg per 24 hr tablet 2014-08 00:00: 00 Yes [id number] 1{tbl} Take 1 Tab by mouth daily. [facility] Vital Signs Vital Name Observation Time Observation [...] End Date/Time Encounter Type Admission Type Attending [facility] Facility Care Department Encounter ID Source 2022-07-04 02:29:05 Outpatient [facility] [id number] [facility] 2022-05-10 20:55:17 Outpatient [facility] [id number] [facility] 2019-11-09 13:19:00 2019-11-09 23:59:00 Hospital Encounter Christina Calabresemerissa [facility] [id number] [facility] 2019-11-09 00:00:00 2019-11-09 00:00:00 Outpatient R PEÑA CALABRESE [facility] [id number] [facility] 2019-11-08 22:22:00 2019-11-08 22:22:00 Emergency [facility] [id number] [facility] 2019-11-08 22:22:00 2019-11-08 22:22:00 Emergency [facility] [id number] [facility] Results Test Description Test Time Test Comments Results Result Co mments Source Thyroid Stimulating [id number] 04:42:51* Test Item Value Reference Range Interpretation Comme nts TSH (test code = TSH) 1.030 mIU/mL 0.270-4.200 Lipid [id number] 04:37:04* Test Item Value Reference Range Interpretation Comme nts Cholesterol Total (test code = Cholesterol Total) 126 mg/dL 0-200 RISK OF HEART DISEASEPublished by [place] [employer] Analyte Optimal Borderline Increased RiskCHOL [...] calculation is LDL/HDL Ratio=LDL Calc/HDL Chol RPR [id number] 14:25:53* Test Item Value Reference Range Interpretation [...] code = Expiration Dt) 08-22-20 N Urinalysis [id number] 06:13:44* Test Item Value Reference Range Interpretation Comme nts UA WBC (test code = UA WBC) 6-10 0-5 A UA RBC (test code = UA RBC) 0-5 0-5 UA Bacteria (test code = UA Bacteria) Moderate A UA Squam Epithelial (test co de = UA Squam Epithelial) 6-10 A UA Mucous (test code = UA Mucous) Moderate A Urine Drug [id number] 05:55:29* Test Item Value Reference Range Interpretation [...] test if desired. Urinalysis with Microscopic if [id number] 05:44:35* Test Item Value Reference Range Interpretation [...] Ind?) Indicated Not Indicated A Comprehensive Metabolic [id number] 01:23:11* Test Item Value Reference Range Interpretation [...] A/G Ratio) 2.5 ratio N Comprehensive Metabolic [id number] 01:23:11* Test Item Value Reference Range Interpretation [...] is not provided, and the patient is -[place], multiply by 1.212. If sex is not [...] by the National Kidney Foundation, http://nkdep.nih.gov Alcohol [id number] 01:23:11* Test Item Value Reference Range Interpretation Comme nts Ethanol Level (test code = Ethanol Level) <0.00 g/dL 0.00-0.01 Intoxicated 0.08 0 g/dL or more Ethanol Inst (test code = Ethanol Inst) <0 N Comprehensive Metabolic [id number] 01:23:11* Test Item Value Reference Range Interpretation [...] is not provided, and the patient is -[place], multiply by 1.212. If sex is not [...] is not provided, and the patient is -[place], multiply by 1.212. If sex is not [...] Kidney Foundation, http://nkdep.nih.gov Complete Blood Count with [id number] 01:06:15* Test Item Value Reference Range Interpretation [...] code = IPF) 0 % N Automated [id number] 01:06:15* Test Item Value Reference Range Interpretation Comme nts Neutro Auto (test code = Rai tro Auto) 56.2 % 36.0-70.0 Lymph Auto (test code = Lymph Auto) 34.2 % 12.0-44.0 Collin Auto (test code = Collin Auto) 8.6 % 0.0-11.0 Eos, Auto (test code = Eos, Auto) 0.2 % 0.0-7.0 Basophil Auto (test code = B asophil Auto) 0.6 % 0.0-2.0 Neutro Absolute (test code = Neutro Absolute) 4.6 x10 1.6-7.4 Lymph Absolute (test code = Lymph Absolute) 2.78 x10 .50-4.60 Collin Absolute (test code = M kriss Absolute) .70 x10 .00-1.20 Eos Absolute (test code = Eo s Absolute) 0.02 x10 0.00-0.74 Baso Absolute (test code = B aso Absolute) 0.05 x10 0.00-0.21 IG [id number] 01:06:15* Test Item Value Reference Range Interpretation Comme nts IG (test code = IG) 0.2 % 0.0-5.0 IG Abs (test code = IG Abs) 0 x10 N
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
[2024-06-24] MEDS ORDERED: KETOROLAC 30 MG/ML INJ ONE (18:50)
[2024-06-24] MEDS ORDERED: HYDROCODONE/APAP 10/325 TAB ONE (18:51)
[2024-06-24] MEDS ORDERED: LIDOCAINE 4% PATCH ONE (18:51)
[2024-06-24 19:14] VITALS: BP 146/76; TEMP 98.4; O2SAT 100
== END 2024-06-24 19:06 | disposition home or self-care (01) ==
LOC: ER 17:56
DX: M54.9 Dorsalgia, unspecified (principal); E11.9 Type 2 diabetes mellitus without complications; I10 Essential (primary) hypertension; Z72.0 Tobacco use
CPT/HCPCS: 96372; 99284

== ENCOUNTER 2024-07-28 08:23 | Emergency (ER) | payer OTHER ==
[2024-07-28] MEDS ORDERED: IBUPROFEN 200 MG TAB PO ONE (08:53)
--- NOTE | 2024-07-28 09:50 | RAD REPORT ---
EXAM: CT Head Brain Wo Cont HISTORY: HEADACHE COMPARISON: None TECHNIQUE: Multiple contiguous axial images were obtained for a CT of the brain without contrast. Sag ittal and coronal reformats were performed. One or more of the following dose reduction techniques were used: Automated exposure control, adjus tment of the mA and kV according to patient size, and iterative reconstruction. Unless otherwise specified, incidental findings do not require dedicated imaging follow-up. FINDINGS: No evidence of hydrocephalus, intracranial hemorrhage, or extra-axial fluid collection. The brain is normal in morphology. The calvarium is intact. The visualized paranasal sinuses and mastoid air cells are essentially clear . IMPRESSION: No evidence of acute intracranial abnormality.
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
[2024-07-28 12:57] VITALS: TEMP 98.4; O2SAT 98
[2024-07-28 12:59] VITALS: BP 160/114
--- OUTSIDE RECORDS SUMMARY | 2024-07-31 08:00 | XMS REPORT | Continuity of Care Document ---
Author Name Unknown Address [address] [place] [address] [facility] thconnect Address 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 Disease Active 09-02 00:00: 00 [facility] AYLEEN (obstructi ve sleep apnea) AYLEEN (obstructi ve sleep apnea) Disease Active 09-02 00:00: 00 [facility] History of depression History of depression Disease Active 09-02 00:00: 00 [facility] 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 08-27 00:00: 00 [facility] Obesity, morbid, BMI 40.0-49.9 Obesity, morbid, BMI 40.0-49.9 Disease Active 2014-08 00:00: 00 [facility] Abnormal weight gain Abnormal weight gain Disease Active 2014-08 00:00: 00 [facility] Type 2 diabetes mellitus without complicati on Type 2 diabetes mellitus without complicati on Disease Active 2014-08 00:00: 00 [facility] Acanthosis nigricans Acanthosis nigricans Disease Active 2014-08 00:00: 00 [facility] Elevated systolic blood pressure Elevated systolic blood pressure Disease Active 2014-08 00:00: 00 [facility] Allergies, Adverse Reactions, Alerts Allergy Name Allergy Type Status Severity Reaction(s) Onset Date Inactive Date Treating Clinician Comments Source No Known Allergie s Drug Active [facility] NO KNOWN ALLERGIE S Drug Class Active [facility] Social History Social Habit Start Date Stop Date Quantity Comments Source Sex Assigned At [facility] Alcohol intake 2017-07-28 00:00:00 2017-07-28 00:00:00 [facility] Smoking Status Start Date Stop Date Source Never smoker [facility] Medications Ordered Medication Name Filled Medication Name Start Date Stop Date Current Medication? Ordering Clinician Indication Dosage Frequency Signature (SIG) Comments Components Source Lamotrigine (LAMICTAL ODT) 50 mg tablet 2016-08 13:15: 05 Yes 50mg Take 50 mg by mouth daily. [facility] blood sugar diagnostic (FREESTYLE LITE STRIPS) strip 01-25 00:00: 00 Yes Checking 6 times daily [facility] metformin ER 750 mg 24 hr tablet 01-25 00:00: 00 Yes [id number] 750mg Take 1 tablet by mouth daily. With dinner [facility] Insulin [place], Disposable, (SURE-FINE PEN NEEDLES) 31 gauge x 5/16" Ndle 04-28 00:00: 00 Yes [id number] Taking 1 injection daily [facility] loratadine- pseudoephed rine (CLARITIN-D 24 HOUR) 10-240 mg per 24 hr tablet 2014-08 00:00: 00 Yes [id number] 1{tbl} Take 1 Tab by mouth daily. [facility] Vital Signs Vital Name Observation [...] Source 2022-07-04 02:29:05 Outpatient [facility] [id number] [facility] 2022-05-10 20:55:17 Outpatient [facility] [id number] [facility] 2019-11-09 13:19:00 2019-11-09 23:59:00 Hospital Encounter Christina Calabresemerissa [facility] [id number] [facility] 2019-11-09 00:00:00 2019-11-09 00:00:00 Outpatient R PEÑA CALABRESE [facility] [id number] [facility] 2019-11-08 22:22:00 2019-11-08 22:22:00 Emergency [facility] [id number] [facility] 2019-11-08 22:22:00 2019-11-08 22:22:00 Emergency [facility] [id number] [facility] Results Test Description Test Time Test Comments Results Result Co mments Source Thyroid Stimulating [id number] 04:42:51* Test Item Value Reference Range Interpretation Comme nts TSH (test code = TSH) 1.030 mIU/mL 0.270-4.200 Lipid [id number] 04:37:04* Test Item Value Reference Range Interpretation Comme nts Cholesterol Total (test code = Cholesterol Total) 126 mg/dL 0-200 RISK OF HEART DISEASEPublished by [place] [employer] Analyte Optimal Borderline Increased RiskCHOL [...] calculation is LDL/HDL Ratio=LDL Calc/HDL Chol RPR [id number] 14:25:53* Test Item Value Reference Range Interpretation [...] code = Expiration Dt) 08-22-20 N Urinalysis [id number] 06:13:44* Test Item Value Reference Range Interpretation Comme nts UA WBC (test code = UA WBC) 6-10 0-5 A UA RBC (test code = UA RBC) 0-5 0-5 UA Bacteria (test code = UA Bacteria) Moderate A UA Squam Epithelial (test co de = UA Squam Epithelial) 6-10 A UA Mucous (test code = UA Mucous) Moderate A Urine Drug [id number] 05:55:29* Test Item Value Reference Range Interpretation [...] test if desired. Urinalysis with Microscopic if [id number] 05:44:35* Test Item Value Reference Range Interpretation [...] Ind?) Indicated Not Indicated A Comprehensive Metabolic [id number] 01:23:11* Test Item Value Reference Range Interpretation [...] A/G Ratio) 2.5 ratio N Comprehensive Metabolic [id number] 01:23:11* Test Item Value Reference Range Interpretation [...] is not provided, and the patient is -[place], multiply by 1.212. If sex is not [...] by the National Kidney Foundation, http://nkdep.nih.gov Alcohol [id number] 01:23:11* Test Item Value Reference Range Interpretation Comme nts Ethanol Level (test code = Ethanol Level) <0.00 g/dL 0.00-0.01 Intoxicated 0.08 0 g/dL or more Ethanol Inst (test code = Ethanol Inst) <0 N Comprehensive Metabolic [id number] 01:23:11* Test Item Value Reference Range Interpretation [...] is not provided, and the patient is -[place], multiply by 1.212. If sex is not [...] is not provided, and the patient is -[place], multiply by 1.212. If sex is not [...] Kidney Foundation, http://nkdep.nih.gov Complete Blood Count with [id number] 01:06:15* Test Item Value Reference Range Interpretation [...] code = IPF) 0 % N Automated [id number] 01:06:15* Test Item Value Reference Range Interpretation Comme nts Neutro Auto (test code = Rai tro Auto) 56.2 % 36.0-70.0 Lymph Auto (test code = Lymph Auto) 34.2 % 12.0-44.0 Island Auto (test code = Island Auto) 8.6 % 0.0-11.0 Eos, Auto (test code = Eos, Auto) 0.2 % 0.0-7.0 Basophil Auto (test code = B asophil Auto) 0.6 % 0.0-2.0 Neutro Absolute (test code = Neutro Absolute) 4.6 x10 1.6-7.4 Lymph Absolute (test code = Lymph Absolute) 2.78 x10 .50-4.60 Island Absolute (test code = M kriss Absolute) .70 x10 .00-1.20 Eos Absolute (test code = Eo s Absolute) 0.02 x10 0.00-0.74 Baso Absolute (test code = B aso Absolute) 0.05 x10 0.00-0.21 IG [id number] 01:06:15* Test Item Value Reference Range Interpretation Comme nts IG (test code = IG) 0.2 % 0.0-5.0 IG Abs (test code = IG Abs) 0 x10 N
== END 2024-07-28 10:21 | disposition home or self-care (01) ==
LOC: ER 08:23
DX: S00.83XA Contusion of other part of head, initial encounter (principal); F10.90 Alcohol use, unspecified, uncomplicated; F31.9 Bipolar disorder, unspecified
CPT/HCPCS: 70450; 99283

== ENCOUNTER 2024-08-01 14:06 | Emergency (ER) | payer OTHER ==
--- OUTSIDE RECORDS SUMMARY | 2024-08-01 14:09 | XMS REPORT | Continuity of Care Document ---
Author Name Unknown Address [address] [place] [address] [facility]connect Address 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 Disease Active 09-02 00:00: 00 [facility] AYLEEN (obstructi ve sleep apnea) AYLEEN (obstructi ve sleep apnea) Disease Active 09-02 00:00: 00 [facility] History of depression History of depression Disease Active 09-02 00:00: 00 [facility] 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 08-27 00:00: 00 [facility] Obesity, morbid, BMI 40.0-49.9 Obesity, morbid, BMI 40.0-49.9 Disease Active 2014-08 00:00: 00 [facility] Abnormal weight gain Abnormal weight gain Disease Active 2014-08 00:00: 00 [facility] Type 2 diabetes mellitus without complicati on Type 2 diabetes mellitus without complicati on Disease Active 2014-08 00:00: 00 [facility] Acanthosis nigricans Acanthosis nigricans Disease Active 2014-08 00:00: 00 [facility] Elevated systolic blood pressure Elevated systolic blood pressure Disease Active 2014-08 00:00: 00 [facility] Allergies, Adverse Reactions, Alerts Allergy Name Allergy Type Status Severity Reaction(s) Onset Date Inactive Date Treating Clinician Comments Source No Known Allergie s Drug Active [facility] NO KNOWN ALLERGIE S Drug Class Active [facility] Social History Social Habit Start Date Stop Date Quantity Comments Source Sex Assigned At [facility] Alcohol intake 2017-07-28 00:00:00 2017-07-28 00:00:00 [facility] Smoking Status Start Date Stop Date Source Never smoker [facility] Medications Ordered Medication Name Filled Medication Name Start Date Stop Date Current Medication? Ordering Clinician Indication Dosage Frequency Signature (SIG) Comments Components Source Lamotrigine (LAMICTAL ODT) 50 mg tablet 2016-08 13:15: 05 Yes 50mg Take 50 mg by mouth daily. [facility] blood sugar diagnostic (FREESTYLE LITE STRIPS) strip 01-25 00:00: 00 Yes Checking 6 times daily [facility] metformin ER 750 mg 24 hr tablet 01-25 00:00: 00 Yes [id number] 750mg Take 1 tablet by mouth daily. With dinner [facility] Insulin [place], Disposable, (SURE-FINE PEN NEEDLES) 31 gauge x 5/16" Ndle 04-28 00:00: 00 Yes [id number] Taking 1 injection daily [facility] loratadine- pseudoephed rine (CLARITIN-D 24 HOUR) 10-240 mg per 24 hr tablet 2014-08 00:00: 00 Yes [id number] 1{tbl} Take 1 Tab by mouth daily. [facility] Vital Signs Vital Name Observation Time Observation [...] End Date/Time Encounter Type Admission Type Attending [facility] Facility Care Department Encounter ID Source 2022-07-04 02:29:[address] [facility] [id number] [facility] 2022-05-10 20:55:[address] [facility] [id number] [facility] 2019-11-09 13:19:00 2019-11-09 23:59:00 Hospital Encounter Christina Calabresemerissa [facility] [id number] [facility] 2019-11-09 00:00:00 2019-11-09 00:00:00 Outpatient R PEÑA CALABRESE [facility] [id number] [facility] 2019-11-08 22:22:00 2019-11-08 22:22:00 Emergency [facility] [id number] [facility] 2019-11-08 22:22:00 2019-11-08 22:22:00 Emergency [facility] [id number] [facility] Results Test Description Test Time Test Comments Results Result Co mments Source Thyroid Stimulating [id number] 04:42:51* Test Item Value Reference Range Interpretation Comme nts TSH (test code = TSH) 1.030 mIU/mL 0.270-4.200 Lipid [id number] 04:37:04* Test Item Value Reference Range Interpretation Comme nts Cholesterol Total (test code = Cholesterol Total) 126 mg/dL 0-200 RISK OF HEART DISEASEPublished by [place] [employer] Analyte Optimal Borderline Increased RiskCHOL [...] calculation is LDL/HDL Ratio=LDL Calc/HDL Chol RPR [id number] 14:25:53* Test Item Value Reference Range Interpretation [...] code = Expiration Dt) 08-22-20 N Urinalysis [id number] 06:13:44* Test Item Value Reference Range Interpretation Comme nts UA WBC (test code = UA WBC) 6-10 0-5 A UA RBC (test code = UA RBC) 0-5 0-5 UA Bacteria (test code = UA Bacteria) Moderate A UA Squam Epithelial (test co de = UA Squam Epithelial) 6-10 A UA Mucous (test code = UA Mucous) Moderate A Urine Drug [id number] 05:55:29* Test Item Value Reference Range Interpretation [...] test if desired. Urinalysis with Microscopic if [id number] 05:44:35* Test Item Value Reference Range Interpretation [...] Ind?) Indicated Not Indicated A Comprehensive Metabolic [id number] 01:23:11* Test Item Value Reference Range Interpretation [...] A/G Ratio) 2.5 ratio N Comprehensive Metabolic [id number] 01:23:11* Test Item Value Reference Range Interpretation [...] is not provided, and the patient is -[place], multiply by 1.212. If sex is not [...] by the National Kidney Foundation, http://nkdep.nih.gov Alcohol [id number] 01:23:11* Test Item Value Reference Range Interpretation Comme nts Ethanol Level (test code = Ethanol Level) <0.00 g/dL 0.00-0.01 Intoxicated 0.08 0 g/dL or more Ethanol Inst (test code = Ethanol Inst) <0 N Comprehensive Metabolic [id number] 01:23:11* Test Item Value Reference Range Interpretation [...] is not provided, and the patient is -[place], multiply by 1.212. If sex is not [...] is not provided, and the patient is -[place], multiply by 1.212. If sex is not [...] Kidney Foundation, http://nkdep.nih.gov Complete Blood Count with [id number] 01:06:15* Test Item Value Reference Range Interpretation [...] code = IPF) 0 % N Automated [id number] 01:06:15* Test Item Value Reference Range Interpretation Comme nts Neutro Auto (test code = Rai tro Auto) 56.2 % 36.0-70.0 Lymph Auto (test code = Lymph Auto) 34.2 % 12.0-44.0 [place] Auto (test code = [place] Auto) 8.6 % 0.0-11.0 Eos, Auto (test code = Eos, Auto) 0.2 % 0.0-7.0 Basophil Auto (test code = B asophil Auto) 0.6 % 0.0-2.0 Neutro Absolute (test code = Neutro Absolute) 4.6 x10 1.6-7.4 Lymph Absolute (test code = Lymph Absolute) 2.78 x10 .50-4.60 [place] Absolute (test code = M kriss Absolute) .70 x10 .00-1.20 Eos Absolute (test code = Eo s Absolute) 0.02 x10 0.00-0.74 Baso Absolute (test code = B aso Absolute) 0.05 x10 0.00-0.21 IG [id number] 01:06:15* Test Item Value Reference Range Interpretation Comme nts IG (test code = IG) 0.2 % 0.0-5.0 IG Abs (test code = IG Abs) 0 x10 N
[2024-08-01 15:08] LABS: Absolute Eosinophils 0.1 K/uL (0-0.5); Absolute Lymphocytes (CBC) 1.4 K/uL (0.7-4.9); Absolute Monocytes 0.6 K/uL (0.1-1.3); Absolute Neutrophil 5.7 K/uL (1.8-8.0); Basophils % 0.4 % (0-1.3); Eosinophils % 0.9 % (0-4.4); Hematocrit 49.4 % (39.6-49.0); Hemoglobin 16.6 g/dL (13.6-17.9); Lymphocytes % 17.5 % (15.3-44.8); MCH 30.9 pg (27.0-35.0); MCHC 33.5 g/dL (32.0-36.0); MCV 92.2 fL (80-100); Monocytes % 7.7 % (3.3-12.3); Neutrophils % 73.5 % (41.7-73.7); Nucleated Red Blood Cells % 0.3 % (0-0); Platelets 255 thou/uL (152-406); RBC Red Blood Cell Count 5.36 M/uL (4.33-5.43); Red Cell Distribution Width 14.1 % (12.1-15.2)
[2024-08-01 15:20] LABS: Barbiturates NEGATIVE (NEGATIVE); Benzodiazepines NEGATIVE (NEGATIVE); Cocaine NEGATIVE (NEGATIVE); METHAMPHETAM NEGATIVE (NEGATIVE); Methadone NEGATIVE (NEGATIVE); Opiates NEGATIVE (NEGATIVE); Phencyclidine NEGATIVE (NEGATIVE); THC Cannibis NEGATIVE (NEGATIVE)
--- NOTE | 2024-08-01 15:26 | RAD REPORT ---
EXAMINATION: ONE VIEW CHEST XR CLINICAL INDICATION: CHEST PAIN TECHNIQUE: Frontal chest projection is submitted. Examination is limited by patient positioning and t echnique. COMPARISON: 06/21/2024 CT chest FINDINGS: The lungs are well inflated and clear. The heart is normal in size. No displaced fractures identified . IMPRESSION: No acute intrathoracic abnormalities.
[2024-08-01 15:40] LABS: Thyroid Stimulating Hormone 1.24 uIU/mL (0.358-3.740); Troponin High Sensitivity 5.4 pg/mL (<58.9)
[2024-08-01] MEDS ORDERED: PROPRANOLOL HCL 40 MG TAB ONE (16:43)
[2024-08-01] MEDS ORDERED: NA CHLORIDE 0.9% 1,000 ML ONE (16:43)
--- NOTE | 2024-08-01 16:51 | EDPHYS ---
Physician Documentation [facility] Name: Nghia Estrada Age: 23 yrs Sex: Male : 2000 Arrival Date: 08/01/2024 Time: 14:06 Bed 17 Private MD: ED Physician Elizabeth Santiago HPI: 08/01 14:16 This 23 yrs old Male presents to ER via Unassigned with complaints of Fast heart rate. sb4 14:16 patient reports history of hypertension, diabetes, bipolar disorder comes in with sb4 complaints of tachycardia and palpitations. states that he did not take any of his medications this morning- propranolol and metformin- and drank 2 "tall boys" of beer and a "medium" sized red bull. states he checked his vitals, blood pressure was elevated, HR was 132. denies any chest pain, just wants to make sure he is okay. Historical: - Allergies: 14:18 Suboxone; cm10 - PMHx: 14:18 Bipolar disorder; diabetes mellitus; Hypertensive disorder; cm10 - PSHx: 14:18 None; cm10 - Immunization history:: Adult Immunizations up to date. - Infectious Disease History:: Denies. - Social history:: Smoking status: Patient reports the use of cigarette tobacco products, smokes one pack cigarettes per day. ROS: 14:16 Constitutional: Negative for fever, chills, and weight loss, sb4 14:16 Cardiovascular: Positive for palpitations, 14:16 Psych: Positive for anxiety, 14:16 All other systems are negative, Exam: 14:16 Head/Face: Normocephalic, atraumatic. Eyes: Extra-ocular motions intact. Periorbital sb4 areas with no swelling, redness, or edema. ENT: Mucous membranes moist. Respiratory: No increased work of breathing, no retractions or nasal flaring. Abdomen/GI: Soft, non-tender, no distension. Skin: Warm, dry with normal turgor. Normal color with no rashes, no lesions, and no evidence of cellulitis. 14:16 Constitutional: The patient appears alert, awake, anxious, smells of alcohol, ETOH, cigarettes restless, 14:16 Cardiovascular: Rate: tachycardic, Rhythm: regular, 14:16 Psych: Behavior/mood is anxious, Vital Signs: 14:16 BP 159 / 105; Pulse 100; Resp 15; Temp 96.9(TE); Pulse Ox 100% on R/A; Weight 108.86 cm10 kg; Height 5 ft. 7 in. ; Pain 0/10; 16:50 BP 136 / 83; Pulse 89; Resp 16; Temp 99; Pulse Ox 97% ; go2 14:16 Body Mass Index 37.59 (108.86 kg, 170.18 cm) cm10 14:16 Pain Scale: Adult cm10 MDM: 14:15 Medical Screening Exam initiated sb4 14:18 Differential diagnosis: alcohol intoxication, dehydration, ACS, sinus tachycardia, sb4 anxiety. 16:45 Data reviewed: vital signs, nurses notes, lab test result(s), EKG, radiologic studies, sb4 and as a result, I will discharge patient. Counseling: I had a detailed discussion with the patient and/or guardian regarding the historical points, exam findings, and any diagnostic results supporting the discharge/admit diagnosis, the presence of at least one elevated blood pressure reading (>120/80) during this emergency department visit, lab results, radiology results, the need for outpatient follow up, for definitive care, to return to the emergency department if symptoms worsen or persist or if there are any questions or concerns that arise at home. 08/01 14:16 Order name: Basic Metabolic Panel; Complete Time: 15:40 sb4 08/01 14:16 Order name: CBC with Diff; Complete Time: 15:13 sb4 08/01 14:16 Order name: Troponin HS; Complete Time: 15:40 sb4 08/01 14:16 Order name: TSH; Complete Time: 15:40 sb4 08/01 14:16 Order name: ETOH Level; Complete Time: 15:28 sb4 08/01 14:16 Order name: UDS; Complete Time: 15:20 sb4 08/01 14:16 Order name: XRAY Chest (1 view); Complete Time: 15:28 sb4 08/01 14:16 Order name: EKG; Complete Time: 14:16 sb4 08/01 14:16 Order name: Cardiac monitoring sb4 08/01 14:16 Order name: EKG - Nurse/Tech sb4 08/01 14:16 Order name: IV Saline Lock 4 08/01 14:16 Order name: Labs collected and sent 4 08/01 14:16 Order name: O2 Per Protocol sb4 08/01 14:16 Order name: O2 Sat Monitoring sb4 Administered Medications: 16:50 Drug: NS 0.9% IV 1000 ml IV at 1 bolus Per protocol; to be given as a bolus over 60 go2 minutes Route: IV; Rate: 1 bolus; Site: left antecubital; 16:50 Drug: Propranolol PO 20 mg PO once Route: PO; go2 Disposition Summary: 08/01/24 16:50 Discharge Ordered Notes: Location: Home sb4 Problem: new sb4 Symptoms: have improved sb4 Condition: Stable sb4 Diagnosis - Palpitations sb4 Followup: sb4 - With: Emergency Department - When: As needed - Reason: Trouble breathing, Worsening of condition Discharge Instructions: - Discharge Summary Sheet sb4 - Palpitations sb4 - Caffeine Use Disorder sb4 Forms: - Patient Portal Instructions sb4 - Leadership Thank You Letter sb4 Signatures: Dispatcher [employer] Heydi Ruano PA-C PA-C sb4 Adrianne Baugh RN RN cm10 Hallie aSntos RN RN go2 Corrections: (The following items were deleted from the chart) 14:19 14:18 Differential diagnosis: alcohol intoxication, dehydration, ACS, sinus sb4 tachycardia, anxiety, ACS sb4 14:19 14:18 Allergies: BENZODIAZEPINES; cm10 cm10
--- NOTE | 2024-08-01 16:51 | ER ---
Nurse's Notes [facility] Name: Nghia Estrada Age: 23 yrs Sex: Male : 2000 Arrival Date: 08/01/2024 Time: 14:06 Bed 17 Private MD: Diagnosis: Palpitations Presentation: 08/01 14:16 Chief complaint: Patient states: "I DRANK A MEDIUM RED BULL AND DRANK 2 TALL BOYS. NOW cm10 MY HEART IS RACING." PT DENIES PAIN. Coronavirus screen: Client denies travel out of the [place] in the last 14 days. Ebola Screen: Patient denies travel to an Ebola-affected area in the 21 days before illness onset. No symptoms or risks identified at this time. Initial Sepsis Screen: Does the patient meet any 2 criteria? HR > 90 bpm. Does the patient have a suspected source of infection? No. Patient's initial sepsis screen is negative. Risk Assessment: Do you want to hurt yourself or someone else? Patient reports no desire to harm self or others. Onset of symptoms was August 01, 2024. 14:16 Method Of Arrival: Ambulatory cm10 14:16 Acuity: RUBIO 3 cm10 Triage Assessment: 14:19 General: Appears in no apparent distress. comfortable, Behavior is anxious. Neuro: No cm10 deficits noted. Level of Consciousness is awake, alert, obeys commands, Oriented to person, place, time, situation, Appropriate for age. Historical: - Allergies: 14:18 Suboxone; cm10 - PMHx: 14:18 Bipolar disorder; diabetes mellitus; Hypertensive disorder; cm10 - PSHx: 14:18 None; cm10 - Immunization history:: Adult Immunizations up to date. - Infectious Disease History:: Denies. - Social history:: Smoking status: Patient reports the use of cigarette tobacco products, smokes one pack cigarettes per day. Vital Signs: 14:16 BP 159 / 105; Pulse 100; Resp 15; Temp 96.9(TE); Pulse Ox 100% on R/A; Weight 108.86 cm10 kg; Height 5 ft. 7 in. ; Pain 0/10; 16:50 BP 136 / 83; Pulse 89; Resp 16; Temp 99; Pulse Ox 97% ; go2 14:16 Body Mass Index 37.59 (108.86 kg, 170.18 cm) cm10 14:16 Pain Scale: Adult cm10 ED Course: 14:09 Patient arrived in ED. ra3 14:09 [facility] sb4 14:09 Elizabeth Santiago MD is Attending Physician. sb4 14:18 Triage completed. cm10 14:18 Arm band placed on left wrist. Patient placed in waiting room. cm10 14:59 UDS Sent. bc6 14:59 ETOH Level Sent. bc6 14:59 TSH Sent. bc6 15:04 Initial lab(s) drawn, by ms, sent to lab. Inserted saline lock: 20 gauge in left bc6 antecubital area, using aseptic technique. Blood collected. Flushed with 10 mL NS. 15:11 XRAY Chest (1 view) In Process Unspecified. EDMS 16:39 Hallie Santos, RN is Primary Nurse. go2 Administered Medications: 16:50 Drug: NS 0.9% IV 1000 ml IV at 1 bolus Per protocol; to be given as a bolus over 60 go2 minutes Route: IV; Rate: 1 bolus; Site: left antecubital; 16:50 Drug: Propranolol PO 20 mg PO once Route: PO; go2 Outcome: 16:50 Discharge ordered by MD. sb4 17:56 Patient left the ED. ap3 Signatures: Dispatcher [employer] EDMI Pricila Escobar RN RN ap3 Heydi Pratt PA-C PA-C sb4 Mi Mckee bc6 Adrianne Baugh RN RN 10 Nova Schultz ra3 Hallie Santos, APOLINAR RN go2 Corrections: (The following items were deleted from the chart) 14:19 14:18 Allergies: BENZODIAZEPINES; cm10 cm10
[2024-08-01 18:47] VITALS: BP 136/83; TEMP 99; O2SAT 97
== END 2024-08-01 17:56 | disposition home or self-care (01) ==
LOC: ER 14:06
DX: R00.2 Palpitations (principal); I10 Essential (primary) hypertension; F17.200 Nicotine dependence, unspecified, uncomplicated
CPT/HCPCS: 85025; 80048; 36415; 84443; 84484; 80307; 71045; 99284; 82077; J7030

== ENCOUNTER 2024-10-02 14:21 | Emergency (ER) | payer OTHER ==
--- OUTSIDE RECORDS SUMMARY | 2024-10-02 14:25 | XMS REPORT | Continuity of Care Document ---
Author Name Unknown Address [address] [facility] [address] [place] [address] [facility] thconnect Address [address] [facility]. 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 AYLEEN (obstructi ve sleep apnea) AYELEN (obstructi ve sleep apnea) Disease Active 09-02 00:00: 00 [facility] History of depression History of depression Disease Active 09-02 00:00: 00 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 Obesity, morbid, BMI 40.0-49.9 Obesity, morbid, BMI 40.0-49.9 Disease Active 2014-08 00:00: 00 [facility] Abnormal weight gain Abnormal weight gain Disease Active 2014-08 00:00: 00 [facility] Type 2 diabetes mellitus without complicati on Type 2 diabetes mellitus without complicati on Disease Active 2014-08 00:00: 00 [facility] Acanthosis nigricans Acanthosis nigricans Disease Active 2014-08 00:00: 00 [facility] Elevated systolic blood pressure Elevated systolic blood pressure Disease Active 2014-08 00:00: 00 [facility] Allergies, Adverse Reactions, Alerts Allergy Name Allergy Type Status Severity Reaction(s) Onset Date Inactive Date Treating Clinician Comments Source no allergie s (Not Checked) Propensi ty to adverse reaction to drug Active 09-27 00:00: 00 Khris Durbin NO KNOWN ALLERGIE S Drug Class Active [facility] No Known Allergie s Drug Active [facility] Social History Social Habit Start Date Stop Date Quantity Comments Source Sex Assigned At [facility] Alcohol intake 2017-07-28 00:00:00 2017-07-28 00:00:00 [facility] Smoking Status Start Date Stop Date Source Never smoker [facility] Medications Ordered Medication Name Filled Medication Name Start Date Stop Date Current Medication? Ordering Clinician Indication Dosage Frequency Signature (SIG) Comments Components Source valacyclovi r 1 gram tablet 09-27 00:00: 00 Yes 1gram Khris Durbin clotrimazol e 10 mg salvador - 00:00: 00 Yes 1mg Khris Durbin quetiapine 25 mg tablet - 00:00: 00 Yes mg Khris Durbin clonazepam 0.5 mg tablet - 00:00: 00 Yes mg Khris Durbin propranolol 10 mg tablet - 00:00: 00 Yes mg Khris Durbin nystatin 100,000 unit/mL oral suspension 09-11 00:00: 00 Yes unit/mL Khris Durbin metformin ER 500 mg tablet,exte nded release 24 hr - 00:00: 00 Yes mg Khris Durbin tadalafil 5 mg tablet - 00:00: 00 Yes mg Khris Durbin fenofibrate nanocrystal lized 145 mg tablet 2023-08- 00:00: 00 Yes mg Khris Durbin ergocalcife rol (vitamin D2) 1,250 mcg (50,000 unit) capsule 2023-08 00:00: 00 Yes (50,000 unit) Khris Durbin lamotrigine 25 mg tablet 2023-08 00:00: 00 Yes mg Khris Durbin Lamotrigine (LAMICTAL ODT) 50 mg tablet 2016-08 13:15: 05 Yes 50mg Take 50 mg by mouth daily. [facility] blood sugar diagnostic (FREESTYLE LITE STRIPS) strip 01-25 00:00: 00 Yes Checking [address] [facility] metformin ER 750 mg 24 hr tablet 01-25 00:00: 00 Yes [id number] 750mg Take 1 tablet by mouth daily. With dinner [facility] Insulin [place], Disposable, (SURE-FINE PEN NEEDLES) 31 gauge x 5/16" Ndle 04-28 00:00: 00 Yes [id number] Taking [address] [facility] loratadine- pseudoephed rine (CLARITIN-D 24 HOUR) 10-240 mg per 24 hr tablet 2014-08 00:00: 00 Yes [id number] 1{tbl} Take 1 Tab by mouth daily. [facility] Vital Signs Vital Name Observation Time [...] 09:37:48 172.7 cm Height/Length Measured 2019-11-08 22:41:31 Heart Rate 2024-09-27 08:33:00 88.00 /min Annel Durbin Respiratory Rate 2024-09-27 08:33:00 18.00 /min Khris Durbin BP Systolic 2024-09-27 08:33:00 117 mm[Hg] Jared Durbin BP Diastolic 2024-09-27 08:33:00 79 mm[Hg] Cassius Durbin Weight Measured 2024-09-27 08:33:00 236.00 pounds Khris Durbin Height Measured 2024-09-27 08:33:00 68.00 inches Khris Durbin Body Temperature 2024-09-27 08:33:00 98.20 degrees Khris Durbin Encounters Start Date/Time End Date/Time Encounter Type Admission Type Attending [facility] Care Department Encounter ID Source 2022-07-04 02:29:05 Outpatient [facility] [id number] [facility] 2022-05-10 20:55:17 Outpatient [facility] [id number] [facility] 2024-09-27 08:24:28 2024-09-27 08:24:28 Outpatient [facility] S[facility] [id number] Khris Durbin 2024-09-27 00:00:00 2024-09-27 00:00:00 Outpatient Visit [facility] [id number] Khris Durbin 2019-11-09 13:19:00 2019-11-09 23:59:00 Hospital Encounter Emery Peña [facility] [id number] [facility] 2019-11-09 00:00:00 2019-11-09 00:00:00 Outpatient R EMERY PEÑA [facility] NUT [id number] [facility] 2019-11-08 22:22:00 2019-11-08 22:22:00 Emergency [facility] [id number] [facility] 2019-11-08 22:22:00 2019-11-08 22:22:00 Emergency [facility] [id number] [facility] Results Test Description Test Time Test Comments Results Result Co mments Source Thyroid Stimulating [id number] 04:42:51* Test Item Value Reference Range Interpretation Comme nts TSH (test code = TSH) 1.030 mIU/mL 0.270-4.200 Lipid [id number] 04:37:04* Test Item Value Reference Range Interpretation Comme nts Cholesterol Total (test code = Cholesterol Total) 126 mg/dL 0-200 RISK OF HEART DISEASEPublished by [place] Heart Association Analyte Optimal Borderline Increased RiskCHOL [...] calculation is LDL/HDL Ratio=LDL Calc/HDL Chol RPR [id number] 14:25:53* Test Item Value Reference Range Interpretation [...] code = Expiration Dt) 08-22-20 N Urinalysis [id number] 06:13:44* Test Item Value Reference Range Interpretation Comme nts UA WBC (test code = UA WBC) 6-10 0-5 A UA RBC (test code = UA RBC) 0-5 0-5 UA Bacteria (test code = UA Bacteria) Moderate A UA Squam Epithelial (test co de = UA Squam Epithelial) 6-10 A UA Mucous (test code = UA Mucous) Moderate A Urine Drug [id number] 05:55:29* Test Item Value Reference Range Interpretation [...] test if desired. Urinalysis with Microscopic if [id number] 05:44:35* Test Item Value Reference Range Interpretation [...] Ind?) Indicated Not Indicated A Comprehensive Metabolic [id number] 01:23:11* Test Item Value Reference Range Interpretation [...] A/G Ratio) 2.5 ratio N Comprehensive Metabolic [id number] 01:23:11* Test Item Value Reference Range Interpretation [...] is not provided, and the patient is -[place], multiply by 1.212. If sex is not [...] by the National Kidney Foundation, http://nkdep.nih.gov Alcohol [id number] 01:23:11* Test Item Value Reference Range Interpretation Comme nts Ethanol Level (test code = Ethanol Level) <0.00 g/dL 0.00-0.01 Intoxicated 0.08 0 g/dL or more Ethanol Inst (test code = Ethanol Inst) <0 N Comprehensive Metabolic [id number] 01:23:11* Test Item Value Reference Range Interpretation [...] is not provided, and the patient is -[place], multiply by 1.212. If sex is not [...] is not provided, and the patient is -[place], multiply by 1.212. If sex is not [...] Kidney Foundation, http://nkdep.nih.gov Complete Blood Count with [id number] 01:06:15* Test Item Value Reference Range Interpretation [...] code = IPF) 0 % N Automated [id number] 01:06:15* Test Item Value Reference Range Interpretation Comme nts Neutro Auto (test code = Rai tro Auto) 56.2 % 36.0-70.0 Lymph Auto (test code = Lymph Auto) 34.2 % 12.0-44.0 [place] Auto (test code = Miller Auto) 8.6 % 0.0-11.0 Eos, Auto (test code = Eos, Auto) 0.2 % 0.0-7.0 Basophil Auto (test code = B asophil Auto) 0.6 % 0.0-2.0 Neutro Absolute (test code = Neutro Absolute) 4.6 x10 1.6-7.4 Lymph Absolute (test code = Lymph Absolute) 2.78 x10 .50-4.60 [place] Absolute (test code = M kriss Absolute) .70 x10 .00-1.20 Eos Absolute (test code = Eo s Absolute) 0.02 x10 0.00-0.74 Baso Absolute (test code = B aso Absolute) 0.05 x10 0.00-0.21 IG [id number] 01:06:15* Test Item Value Reference Range Interpretation Comme nts IG (test code = IG) 0.2 % 0.0-5.0 IG Abs (test code = IG Abs) 0 x10 N
--- NOTE | 2024-10-02 14:48 | ER ---
Nurse's Notes [facility] Name: Nghia Estrada Age: 23 yrs Sex: Male : 2000 Arrival Date: 10/02/2024 Time: 14:21 Bed IW1 Private MD: Diagnosis: Other disturbances of oral epithelium, including tongue Presentation: 10/02 14:47 Chief complaint: Patient states: bleeding while brushing teeth this morning. aa5 Coronavirus screen: At this time, the client does not indicate any symptoms associated with coronavirus-19. Ebola Screen: Patient denies travel to an Ebola-affected area in the 21 days before illness onset. Initial Sepsis Screen: Does the patient meet any 2 criteria? No. Patient's initial sepsis screen is negative. Does the patient have a suspected source of infection? No. Patient's initial sepsis screen is negative. Risk Assessment: Do you want to hurt yourself or someone else? Patient reports no desire to harm self or others. Onset of symptoms was October 02, 2024. 14:47 Method Of Arrival: Ambulatory aa5 14:47 Acuity: RUBIO 5 aa5 Historical: - Allergies: 14:47 Suboxone; aa5 - PMHx: 14:47 Bipolar disorder; diabetes mellitus; Hypertensive disorder; aa5 - Immunization history:: Adult Immunizations. - Infectious Disease History:: Denies. - Social history:: Smoking status: Patient reports the use of cigarette tobacco products. Assessment: 14:54 Reassessment: Patient is alert, oriented x 3, equal unlabored respirations, skin aa5 warm/dry/pink. Vital Signs: 14:47 BP 146 / 93; Pulse 87; Resp 18 S; Temp 98(TE); Pulse Ox 100% on R/A; Weight 104.33 kg aa5 (R); Height 5 ft. 8 in. (R); 14:47 Body Mass Index 34.97 (104.33 kg, 172.72 cm) aa5 ED Course: 14:24 Patient arrived in ED. mr 14:26 [facility] Pratt [facility]C [facility] sb4 14:26 Kimo Rodriguez MD is Attending Physician. sb4 14:47 Triage completed. aa5 14:47 Jadon Pineda DDS is Referral Physician. sb4 14:47 Arm band placed on. aa5 14:54 Patient did not have IV access during this emergency room visit. aa5 Administered Medications: No medications were administered Outcome: 14:48 Discharge ordered by . sb4 14:54 Discharged to home ambulatory, aa5 14:54 Condition: good 14:54 Discharge instructions given to patient, Instructed on discharge instructions, follow up and referral plans. 14:54 Patient left the ED. aa5 Signatures: Corie Pagan, Ulises Reg Cielo Tee RN RN aa5 Heydi Pratt PAPatrickC PA-C sb4 Corrections: (The following items were deleted from the chart) 14:48 14:47 104.33 kg Reported; Height 5 ft. 8 in. Reported; BMI: 34.9; aa5 aa5
--- NOTE | 2024-10-02 14:48 | EDPHYS ---
Physician Documentation [facility] Name: Nghia Estrada Age: 23 yrs Sex: Male : 2000 Arrival Date: 10/02/2024 Time: 14:21 Bed IW1 Private MD: ED Physician Kimo Rodriguez HPI: 10/02 15:43 This 23 yrs old Male presents to ER via Ambulatory with complaints of Mouth Problem. sb4 15:43 Patient states that he was brushing his teeth this morning when he decided to brush his sb4 tongue and brush to aggressively causing his tongue to bleed. States it is no longer bleeding but he is concerned and wanted it to be checked. He denies any bleeding disorders, easy bruising, or blood thinner use. Historical: - Allergies: 14:47 Suboxone; aa5 - PMHx: 14:47 Bipolar disorder; diabetes mellitus; Hypertensive disorder; aa5 - Immunization history:: Adult Immunizations. - Infectious Disease History:: Denies. - Social history:: Smoking status: Patient reports the use of cigarette tobacco products. ROS: 15:43 Constitutional: Negative for fever, chills, and weight loss, sb4 15:43 ENT: Positive for Per HPI, 15:43 All other systems are negative, Exam: 15:43 Constitutional: This is a well developed, well nourished patient who is awake, alert, sb4 and in no acute distress. Head/Face: Normocephalic, atraumatic. Eyes: Extra-ocular motions intact. Periorbital areas with no swelling, redness, or edema. Respiratory: No increased work of breathing, no retractions or nasal flaring. Skin: Warm, dry with normal turgor. Normal color with no rashes, no lesions, and no evidence of cellulitis. 15:43 ENT: Mouth: Tongue: is normal, No lacerations, no active bleeding, Vital Signs: 14:47 BP 146 / 93; Pulse 87; Resp 18 S; Temp 98(TE); Pulse Ox 100% on R/A; Weight 104.33 kg aa5 (R); Height 5 ft. 8 in. (R); 14:47 Body Mass Index 34.97 (104.33 kg, 172.72 cm) aa5 MDM: 14:40 Medical Screening Exam initiated sb4 15:43 Data reviewed: vital signs, nurses notes, and as a result, I will discharge patient. sb4 Counseling: I had a detailed discussion with the patient and/or guardian regarding the historical points, exam findings, and any diagnostic results supporting the discharge/admit diagnosis, the need for outpatient follow up, a dentist, to return to the emergency department if symptoms worsen or persist or if there are any questions or concerns that arise at home. ED course: Recommended gentle brushing on the tongue and with a soft bristle toothbrush and to discontinue smoking cigarettes. Patient understands. Administered Medications: No medications were administered Disposition: 17:23 Co-signature as Attending Physician, Kimo Rodriguez MD I reviewed the patient's care rt provided by the Advanced Practice Provider and agree with the diagnosis and treatment plan. Disposition Summary: 10/02/24 14:48 Discharge Ordered Notes: Location: Home sb4 Problem: new sb4 Symptoms: are resolved sb4 Condition: Stable sb4 Diagnosis - Other disturbances of oral epithelium, including tongue sb4 Followup: sb4 - With: Jadon Pineda DDS - When: As needed - Reason: Recheck today's complaints, Re-evaluation by your physician Discharge Instructions: - Discharge Summary Sheet sb4 - Preventive Dental Care, Adult sb4 Forms: - Patient Portal Instructions sb4 - Leadership Thank You Letter sb4 Signatures: Cielo Gonzalez, RN RN aa5 Heydi Pratt PA-C PAPillo sb4 Kimo Rodriguez MD MD rt
[2024-10-02 15:53] VITALS: BP 146/93; TEMP 98; O2SAT 100
== END 2024-10-02 14:54 | disposition home or self-care (01) ==
LOC: ER 14:21
DX: K13.29 Other disturbances of oral epithelium, including tongue (principal)
CPT/HCPCS: 99282

== ENCOUNTER 2024-10-04 19:53 | Emergency (ER) | payer OTHER ==
--- OUTSIDE RECORDS SUMMARY | 2024-10-04 19:55 | XMS REPORT | Continuity of Care Document ---
Author Name Unknown Address [address] [facility] [address] [place] [address] [facility] thconnect Address [address] [facility]. [address] [place] [address] Care Team Providers Care Care Manager Cna Name Role Phone Violette Sanchez Primary Care Physician Peña Calabrese MD Attending Clinician [phone] PEÑA CALABRESE Attending Clinician Unavailable Problems Condition [...] S Drug Class Active [facility] No Known Allergie s Drug Active [facility] Social History Social Habit Start Date Stop Date Quantity Comments Source Sex Assigned At [facility] Alcohol intake 2017-07-28 00:00:00 2017-07-28 00:00:00 [facility] Smoking Status Start Date Stop Date Source Never smoker [facility] Medications Ordered Medication Name Filled Medication [...] 24 hr tablet 01-25 00:00: 00 Yes [id number] 750mg Take 1 tablet by mouth daily. With dinner [facility] Insulin [place], Disposable, (SURE-FINE PEN NEEDLES) 31 gauge x 5/16" Ndle 04-28 00:00: 00 Yes [id number] Taking 1 injection daily [facility] loratadine- pseudoephed rine (CLARITIN-D 24 HOUR) 10-240 mg per 24 hr tablet 2014-08 00:00: 00 Yes [id number] 1{tbl} Take 1 Tab by mouth daily. [...] End Date/Time Encounter Type Admission Type Attending [facility] Care Department Encounter ID Source 2022-07-04 02:29:05 Outpatient [facility] [id number] [facility] 2022-05-10 20:55:17 Outpatient [facility] [id number] [facility] 2024-09-27 08:24:28 2024-09-27 08:24:28 Outpatient [facility] [id number] Khris Durbin 2024-09-27 00:00:00 2024-09-27 00:00:00 Outpatient Visit [facility] [id number] Khris Durbin 2019-11-09 13:19:00 2019-11-09 23:59:00 Hospital Encounter Emery Peña [facility] [id number] [facility] acute hospital 2019-11-09 00:00:00 2019-11-09 00:00:00 Outpatient R EMERY PEÑA [facility] NUT [id number] General acute hospital 2019-11-08 22:22:00 2019-11-08 22:22:00 Emergency [facility] [id number] [facility] 2019-11-08 22:22:00 2019-11-08 22:22:00 Emergency [facility] [place] [id number] [facility] Results Test Description Test Time Test Comments Results Result Co mments Source Thyroid Stimulating [id number] 04:42:51* Test Item Value Reference Range Interpretation Comme nts TSH (test code = TSH) 1.030 mIU/mL 0.270-4.200 Lipid [id number] 04:37:04* Test Item Value Reference Range Interpretation Comme nts Cholesterol Total (test code = Cholesterol Total) 126 mg/dL 0-200 RISK OF HEART DISEASEPublished by [employer] Of [place] Heart Association Analyte Optimal Borderline Increased RiskCHOL [...] calculation is LDL/HDL Ratio=LDL Calc/HDL Chol RPR [id number] 14:25:53* Test Item Value Reference Range Interpretation [...] code = Expiration Dt) 08-22-20 N Urinalysis [id number] 06:13:44* Test Item Value Reference Range Interpretation Comme nts UA WBC (test code = UA WBC) 6-10 0-5 A UA RBC (test code = UA RBC) 0-5 0-5 UA Bacteria (test code = UA Bacteria) Moderate A UA Squam Epithelial (test co de = UA Squam Epithelial) 6-10 A UA Mucous (test code = UA Mucous) Moderate A Urine Drug [id number] 05:55:29* Test Item Value Reference Range Interpretation [...] test if desired. Urinalysis with Microscopic if [id number] 05:44:35* Test Item Value Reference Range Interpretation [...] Ind?) Indicated Not Indicated A Comprehensive Metabolic [id number] 01:23:11* Test Item Value Reference Range Interpretation [...] A/G Ratio) 2.5 ratio N Comprehensive Metabolic [id number] 01:23:11* Test Item Value Reference Range Interpretation [...] is not provided, and the patient is -Citizen Of [place], multiply by 1.212. If sex is not [...] by the National Kidney Foundation, http://nkdep.nih.gov Alcohol [id number] 01:23:11* Test Item Value Reference Range Interpretation Comme nts Ethanol Level (test code = Ethanol Level) <0.00 g/dL 0.00-0.01 Intoxicated 0.08 0 g/dL or more Ethanol Inst (test code = Ethanol Inst) <0 N Comprehensive Metabolic [id number] 01:23:11* Test Item Value Reference Range Interpretation [...] is not provided, and the patient is -Citizen Of [place], multiply by 1.212. If sex is not [...] is not provided, and the patient is -Citizen Of [place], multiply by 1.212. If sex is not [...] Kidney Foundation, http://nkdep.nih.gov Complete Blood Count with [id number] 01:06:15* Test Item Value Reference Range Interpretation [...] code = IPF) 0 % N Automated [id number] 01:06:15* Test Item Value Reference Range Interpretation Comme nts Neutro Auto (test code = Rai tro Auto) 56.2 % 36.0-70.0 Lymph Auto (test code = Lymph Auto) 34.2 % 12.0-44.0 [place] Auto (test code = [place] Auto) 8.6 % 0.0-11.0 Eos, Auto (test code = Eos, Auto) 0.2 % 0.0-7.0 Basophil Auto (test code = B asophil Auto) 0.6 % 0.0-2.0 Neutro Absolute (test code = Neutro Absolute) 4.6 x10 1.6-7.4 Lymph Absolute (test code = Lymph Absolute) 2.78 x10 .50-4.60 [place] Absolute (test code = M kriss Absolute) .70 x10 .00-1.20 Eos Absolute (test code = Eo s Absolute) 0.02 x10 0.00-0.74 Baso Absolute (test code = B aso Absolute) 0.05 x10 0.00-0.21 IG [id number] 01:06:15* Test Item Value Reference Range Interpretation Comme nts IG (test code = IG) 0.2 % 0.0-5.0 IG Abs (test code = IG Abs) 0 x10 N Notes Date/Time Note Provider Source Khris Durbin [facility]
--- NOTE | 2024-10-04 20:42 | EDPHYS ---
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 kb States he was seen here a couple of days ago and they told him to return if he has an allergic reaction. States "I don't know why they told me that but now I think I am having a reaction to something." Denies rash. States he did have itching to his arms intermittently today. . Historical: - Allergies: 20:09 Suboxone; me1 - PMHx: 20:09 diabetes mellitus; Hypertensive disorder; Bipolar disorder; me1 - PSHx: 20:09 None; me1 - Immunization history:: Adult Immunizations up to date. - Infectious Disease History:: Denies. - Social history:: Smoking status: Patient reports the use of cigarette tobacco products, smokes one pack cigarettes per day. ROS: 22:30 Constitutional: As per HPI kb Exam: 22:30 Constitutional: This is a well developed, well nourished patient who is awake, alert, kb and in no acute distress. Head/Face: Normocephalic, atraumatic. ENT: Moist Mucous membranes Cardiovascular: Regular rate Respiratory: Respirations even and unlabored. No increased work of breathing. Talking in full sentences Skin: Warm, dry with normal turgor. Normal color. MS/ Extremity: Pulses equal, no cyanosis. Neurovascular intact. Full, normal range of motion. Neuro: Awake and alert, GCS 15, oriented to person, place, time, and situation. Vital Signs: 20:06 BP 146 / 92; Pulse 81; Resp 16; Temp 98; Pulse Ox 99% ; Weight 104.33 kg; Height 5 ft. me1 8 in. ; Pain 0/10; 20:06 Body Mass Index 34.97 (104.33 kg, 172.72 cm) me1 20:06 Pain Scale: Adult me1 MDM: 19:57 Medical Screening Exam initiated kb 22:30 Differential diagnosis: angioedema, urticaria. Data reviewed: vital signs, nurses kb notes. Counseling: I had a detailed discussion with the patient and/or guardian regarding the historical points, exam findings, and any diagnostic results supporting the discharge/admit diagnosis, the need for outpatient follow up, a family practitioner, to return to the emergency department if symptoms worsen or persist or if there are any questions or concerns that arise at home. 22:32 ED course: No resp distress, lungs clear bilaterally, no swelling noted. . kb Administered Medications: 20:55 Drug: Dexamethasone IM 10 mg IM once Route: IM; Site: left deltoid; ha1 21:13 Follow up: Response: No adverse reaction; Marked relief of symptoms ha1 Disposition Summary: 10/04/24 20:41 Discharge Ordered Notes: Location: Home kb Condition: Stable kb Diagnosis - Lip swelling kb Followup: kb - With: Emergency Department - When: As needed - Reason: Worsening of condition Followup: kb - With: Private Physician - When: 2 - 3 days - Reason: Recheck today's complaints, Continuance of care, Re-evaluation by your physician Discharge Instructions: - Discharge Summary Sheet kb - Allergies, Adult, [id number] kb Forms: - Medication Reconciliation Form kb - Antibiotic Education kb - Prescription Opioid Use kb - Patient Portal Instructions kb - Leadership Thank You Letter kb Addendum: 10/08/2024 09:43 Co-signature as Attending Physician, Bartolo Mantilla MD I agree with the assessment and c murguia plan of care. Signatures: Mary Barros, PHYSICIAN-C PHYSICIAN-Ezeb Bartolo Mantilla MD MD cha Ayala, Heidy, RN RN 1 Hamida Neves, APOLINAR RN me1 Corrections: (The following items were deleted from the chart) 10/04 20:10 20:09 PMHx: Bipolar disorder; me1 me1
--- NOTE | 2024-10-04 20:42 | ER ---
Nurse's Notes [facility] Name: Nghia Estrada Age: 23 yrs Sex: Male : 2000 Arrival Date: 10/04/2024 Time: 19:53 Bed DX2 Private MD: Diagnosis: Lip swelling Presentation: 10/04 20:06 Chief complaint: Patient states: itching all over, feels like his lips and throat is me1 swelling starting about 1 hour ago. c/o difficulty swallowing. Coronavirus screen: Vaccine status: Patient reports being unvaccinated. Ebola Screen: No symptoms or risks identified at this time. Onset: The symptoms/episode began/occurred 1 hour(s) ago. Anaphylaxis evaluation, no signs or symptoms of anaphylaxis were noted. Initial Sepsis Screen: Does the patient meet any 2 criteria? No. Patient's initial sepsis screen is negative. Does the patient have a suspected source of infection? No. Patient's initial sepsis screen is negative. Risk Assessment: Do you want to hurt yourself or someone else? Patient reports no desire to harm self or others. Onset of symptoms was October 04, 2024 at 19:00. 20:06 Method Of Arrival: Ambulatory tx1 20:06 Acuity: RUBIO 4 me1 Triage Assessment: 21:15 General: Appears comfortable, Behavior is calm, cooperative. Pain: Denies pain. Neuro: ha1 Level of Consciousness is awake, alert, obeys commands, Oriented to person, place, time, situation. Cardiovascular: Capillary refill < 3 seconds Patient's skin is warm and dry. Respiratory: Airway is patent Respiratory effort is even, unlabored, Respiratory pattern is regular, symmetrical. Historical: - Allergies: 20:09 Suboxone; me1 - PMHx: 20:09 diabetes mellitus; Hypertensive disorder; Bipolar disorder; me1 - PSHx: 20:09 None; me1 - Immunization history:: Adult Immunizations up to date. - Infectious Disease History:: Denies. - Social history:: Smoking status: Patient reports the use of cigarette tobacco products, smokes one pack cigarettes per day. Screenin:00 [facility] ED Fall Risk Assessment (Adult) History of falling in the last 3 months, ha1 including since admission No falls in past 3 months (0 pts) Confusion or Disorientation No (0 pts) Intoxicated or Sedated No (0 pts) Impaired Gait No (0 pts) Mobility Assist Device Used No (0 pt) Altered Elimination No (0 pt) Score/Fall Risk Level 0 - 2 = Low Risk Oriented to surroundings, Maintained a safe environment, Educated pt \T\ family on fall prevention, incl call for assistance when getting out of bed, Hourly rounding (assess needs \T\ fall precautionary measures) done. Abuse screen: Denies threats or abuse. Denies injuries from another. Nutritional screening: No deficits noted. Tuberculosis screening: No symptoms or risk factors identified. Assessment: 21:13 Reassessment: Patient and/or family updated on plan of care and expected duration. Pain ha1 level reassessed. Patient is alert, oriented x 3, equal unlabored respirations, skin warm/dry/pink. Patient states feeling better. Patient states symptoms have improved. Pain: Denies pain. Cardiovascular: Capillary refill < 3 seconds Patient's skin is warm and dry. Respiratory: Airway is patent Respiratory effort is even, unlabored, Respiratory pattern is regular, symmetrical, Breath sounds are clear bilaterally. Vital Signs: 20:06 BP 146 / 92; Pulse 81; Resp 16; Temp 98; Pulse Ox 99% ; Weight 104.33 kg; Height 5 ft. me1 8 in. ; Pain 0/10; 20:06 Body Mass Index 34.97 (104.33 kg, 172.72 cm) me1 20:06 Pain Scale: Adult me1 ED Course: 19:54 Patient arrived in ED. im 19:57 Mary Barros FNP-C is [facility]. kb 19:57 Bartolo Mantilla MD is Attending Physician. kb 20:09 Triage completed. me1 20:09 Arm band placed on Patient placed in waiting room. me1 20:35 Patient has correct armband on for positive identification. Bed in low position. Call ha1 light in reach. Side rails up X 1. 20:35 Provided Education on: plan of care . ha1 21:16 No provider procedures requiring assistance completed. Patient did not have IV access ha1 during this emergency room visit. Administered Medications: 20:55 Drug: Dexamethasone IM 10 mg IM once Route: IM; Site: left deltoid; ha1 21:13 Follow up: Response: No adverse reaction; Marked relief of symptoms ha1 Medication: 21:15 VIS not applicable for this client. ha1 Outcome: 20:41 Discharge ordered by MD. croft 21:16 Discharged to home ambulatory, ha1 21:16 Condition: stable 21:16 Discharge instructions given to patient, Instructed on discharge instructions, follow up and referral plans. Demonstrated understanding of instructions, follow-up care, 21:16 Patient left the ED. ha1 Signatures: Mary Barros, FOLLOW UP MANAGER-C PADMINI-Mariama Washington RN RN ha1 Jennifer Euceda Michelle, RN RN tx1 Corrections: (The following items were deleted from the chart) 20:10 20:09 PMHx: Bipolar disorder; me1 me1
[2024-10-04] MEDS ORDERED: dexAMETHasone 10 MG/ML VIAL ONE (20:49)
[2024-10-04 21:28] VITALS: BP 146/92; TEMP 98; O2SAT 99
== END 2024-10-04 21:16 | disposition home or self-care (01) ==
LOC: ER 19:53
DX: R22.0 Localized swelling, mass and lump, head (principal); L50.9 Urticaria, unspecified; F17.210 Nicotine dependence, cigarettes, uncomplicated
CPT/HCPCS: 96372; 99284; J1100